=== PATIENT | female | born 1945 | race Caucasian/White ===

== ENCOUNTER 2024-06-19 14:01 | Outpatient (CLI) | payer MEDICARE, SELFPAY ==
--- NOTE | ~2024-06-19 | MR_ITS ---
EXAMINATION: MR shoulder RT wo con DATE: 06/19/2024 14:52 INDICATION: Primary osteoarthritis, right shoulder. Right shoulder pain. TECHNIQUE: Magnetic resonance imaging (MRI) of the right shoulder was performed without intravenous c ontrast. Sequences included axial PD-weighted FS FSE, coronal oblique PD-weighted FS FSE and T2-weigh steve FS FSE, and sagittal oblique T2-weighted FS FSE and T1-weighted FSE. COMPARISON: Right shoulder radiographs 02/05/2024 FINDINGS: Coracoacromial arch: The acromion undersurface is curved in morphology (type II). There is severe acromioclavicular joint osteoarthritis including inferiorly directed osteophytes. There is moderate subacromial/subdeltoid bu rsitis. Rotator cuff: There is a full-thickness tear of supraspinatus tendon measuring 13 mm anterior to posterior by 14 mm proximal to distal. There is an interstitial tear of infraspinatus tendon. Teres minor tendon is nor mal. There is a partial tear of subscapularis tendon. There is volume loss and moderate fatty atrophy of subscapularis muscle belly. There is mild fatty atrophy of supraspinatus and infraspinatus muscle bellies. Biceps tendon and glenoid labrum: Biceps tendon is in bicipital groove. There is severe intra-articular biceps tendinopathy. There is d egenerative tearing of the glenoid labrum. Fluid: There is a small glenohumeral joint effusion. Bones/cartilage: There is shallow partial-thickness cartilage loss of glenoid and humeral head. IMPRESSION: 1. Full-thickness rotator cuff tear. 2. Mild glenohumeral joint chondrosis. 3. Severe biceps tendinopathy. 4. Small glenohumeral joint effusion and moderate subacromial/subdeltoid bursitis. 5. Severe acromioclavicular joint osteoarthritis. Reviewed, dictated and finalized at location [facility]. [facility] IMPRESSION: 1. Full-thickness rotator cuff tear. 2. Mild glenohumeral joint chondrosis. 3. Severe biceps tendinopathy. 4. Small glenohumeral joint effusion and moderate subacromial/subdeltoid bursit is. 5. Severe acromioclavicular joint osteoarthritis.
== END 2024-06-19 14:02 | disposition home or self-care (01) ==
LOC: MICIMG 14:04
PROVIDERS: PCP Family Medicine; Visit Provider Physician Assistant Surgical
DX: M19.011 Primary osteoarthritis, right shoulder (principal); M67.911 Unspecified disorder of synovium and tendon, right shoulder; M25.411 Effusion, right shoulder
CPT/HCPCS: 73221

== ENCOUNTER 2024-07-21 14:12 | Outpatient (CLI) | payer MEDICARE, SELFPAY ==
--- NOTE | 2024-07-21 15:13 | ECG_ITS ---
Test Date: 2024-07-21 15:22:21 Measurements Intervals [place] Rate: 67 P: 13 [place]: 172 QRS: -11 QRSD: 83 T: 31 QT: 410 QTc: 433 Interpretive Statements SINUS RHYTHM No previous ECG available for comparison Electronically Signed On 07-22-2024 15:39:35 CDT by Burt Santiago M.D.
[2024-07-21 15:39] LABS: Hematocrit 40.1 % (37.0-47.0); Hemoglobin 13.4 g/dL (12.0-15.0)
[2024-07-21 16:17] LABS: Hemoglobin A1C 7.2 % (<5.7)
--- OUTSIDE RECORDS SUMMARY | 2024-07-21 16:28 | XMS_ITS | Encounter Summary ---
Author Organization [facility] Healthcare Address [address] [place] [address] Care Team Providers Care Print Producer Name Role Phone Chris Garcia MD Primary Care Provider [phone] Sydni Arroyo NP Primary Care Provider [phone] Chris Garcia MD Primary Care Provider [phone] Concetta Roman MA Unavailable [phone] Encounter Details Date Type Department Care Team (Late st Contact Info) Description 10/12/2020 Telephone [facility] [address] [place] [id number] Li Wilder, RT Social History Tobacco Use Types Packs/Day Years Used Date Smoking Tobacco: Former Smokeless Tobacco: Never Comments:Smoking History Pac ks/day: 1 Cigarettes Alcohol Use Standard Drinks/Week Comments Yes 0 (1 standard drink = 0.6 oz pur e alcohol) PHQ-2 Answer Date Recorded PHQ-2 Total Score 0 10/08/2020 Comments Unknown Sex and Gender Information Value Date Recorded Sex Assigned at Not on file Legal Sex Female 6:52 PM [employer]ER [employer] Gender Identity Not on file Sexual Orientation Not on file documented as of this encounter Plan of Treatment Not on file documented as of this encounter Visit Diagnoses Not on filedocumented in this encounter Additional Health Concerns Infection Onset Date Last Indicated Resolved Time COVID: Suspected 05/01/2022 05/01/2022 05/01/2022 10:33 AM [employer] documented as of this encounter Care Teams Print Producer Relationship Specialty Start Date End Date Chris Garcia MD [address] [place] [address] PCP - General 06/25/19 10/14/20 Sydni Arroyo NP [address] [place] [address] PCP - General Family Medicine 10/15/20 11/14/20 Chris Garcia MD [address] [place] [address] PCP - General Family Medicine 11/15/20 Concetta Roman MA [address] [place] [address] [place] [address] [employer] 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
--- OUTSIDE RECORDS SUMMARY | 2024-07-21 16:28 | XMS_ITS | Clinical Summary ---
Author Organization [facility] [employer] Address [address] [place] [address] Care Team Providers Care Heater Operator Name Role Phone Unavailable Primary Care Provider Unavailabl e Source Comments [facility],non-owned Affiliates and Associated Physician Practices is amultiple site organization consisting of ambulatory clinics and hospital sitesin [place], [place], [place] and [place]. This disclosure is being madepursuant to the Care Everywhere program and may not contain all information available regarding this patient. Last updated 18.[facility] [employer] Allergies Active Allergy Reactions Criticality Noted Date Comments Codeine 06/16/2009 Medications * Be aware that medications may not be up to date on this document. Alwaysverify current medications with the patient. Medication Sig Dispensed Refills Start Date End Date Status lisinopril (PRINIVIL; ZESTRIL) 10 MG tablet Take 10 mg by mouth daily. Active VITAMIN D PO Take by mouth. Active aspirin 81 MG tablet Take 81 mg by mouth daily. Been taking occasionally Active Active Problems Problem Noted Date Diagnosed Date Chest pain 06/16/2009 Family History Medical History Relation Name Comments Heart Disease Paternal Grandfather Relation Name Status Comments Paternal Grandfather Social History Tobacco Use Types Packs/Day Years Used Date Smoking Tobacco: Every Day Cigarettes Comments:socially when out, 1 pack will last a month or so Alcohol Use Standard Drinks/Week Comments Yes 0 (1 standard drink = 0.6 oz pur e alcohol) socially Sex and Gender Information Value Date Recorded Sex Assigned at Not on file Gender Identity Not on file Sexual Orientation Not on file Last Filed Vital Signs Vital Sign Reading Time Taken Comments Blood Pressure 106/60 06/17/2009 5: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 Pulse 77 06/17/2009 5: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 Temperature 36.8 C (98.3 F) 06/17/2009 4:18 PM 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 Respiratory Rate 16 06/17/2009 5: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 Oxygen Saturation 91% 06/17/2009 4:18 PM 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 Inhaled Oxygen Concentration - - Weight 85.2 kg (187 lb 13.3 oz) 010 12:23 AM 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 Height 157.5 cm (5' 2 ) 06/17/2009 12:2 3 AM 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 Body Mass Index 34.35 06/17/2009 12:23 AM 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 Plan of Treatment Health Maintenance Due Date Last Done Comments BONE DENSITY TESTING 1945 HEPATITIS C SCREENING 07/31/1965 DTAP/TDAP/TD VACCINES (1 - Tdap) 08/04/1966 PNEUMOCOCCAL VACCINE 50+ (1 of 1 - PCV) 08/04/1997 ZOSTER VACCINE (1 of 2) 08/04/1997 Respiratory Syncytial Virus (RSV) Vaccine Pt: or over 60 yrs (1 - 1-dose 75+ series) 08/04/2022 COVID-19 VACCINE ( - 2023-2 5 season) 2023 INFLUENZA VACCINE (#1) 2023 DEPRESSION SCREENING 04/30/2024 HEPATITIS B VACCINE Aged Out No longe r eligible based on patient's age to complete this topic HIB VACCINE Aged Out No longer eligi ble based on patient's age to complete this topic HPV VACCINE Aged Out No longer eligi ble based on patient's age to complete this topic MENINGOCOCCAL (Group B) VACC INE SHARED DECISION-MAKING Aged Out No longer eligibl e based on patient's age to complete this topic MENINGOCOCCAL GROUPS A/C/Y/W VACCINE Aged Out No longer eligible b ased on patient's age to complete this topic Advance Directives * Full Code (Latest Code Status on File) Date Activated Date Inactivated Comments 06/17/2009 12:02 PM 06/18/2009 6:53 AM
--- OUTSIDE RECORDS SUMMARY | 2024-07-21 16:29 | XMS_ITS | Referral Summary ---
Author Organization [facility] A Address [address] [place] [address] Care Team Providers Care Director [facility] Name Role Phone Chris Garcia MD Primary Care Provider [phone] Encounters Date Type Department Care Team Description 06/19/2024 Orders Only [facility] [facility] [address] [place] [id number] Chris Garcia MD 06/12/2024 Telephone [facility] Endocrine Care at [address] [address] Arthur Santiago DO 06/02/2024 2:30 PM REAL TIME ANALYST Office Visit [facility] Diabetes Endocrine Care at [address] [address] Arthur Santiago DO Type 2 diabetes mellitus with hyperglycemia, without long-term current use of insulin (HCC) (Primary Dx); Hypertension associated with diabetes (HCC) from Last 3 Months Allergies Active Allergy Reactions Criticality Noted Date Comments Ciprofloxacin Swelling,Other (See comments),Blisters Reaction: SWELLING, Reaction: hand, feet swelling, blister, , Reaction: hand, feet swelling, blister, Codeine Nausea only,Vomiting Reaction: NAUSEA, VOMITING, , Lanolin Itching Reaction: ITCHING Lisinopril Cough Low 07/08/2020 Mineral Oil Itching Low Reaction: ITCHING Penicillin Hives Reaction: hives, Penicillins Medications aspirin 81 mg enteric coated tablet Take 1 tablet (81 mg total) by mouth daily 30 tablet 1 Active nitroglycerin (NITROSTAT) 0.[address] 1 tablet (0.4 mg total) under the tongue every 5 (five) minutes as needed for chest pain May repeat dose q 5 min, up to 3 doses total 90 tablet 2 Active blood glucose diagnostic (glucose blood) strip Use as directed to test blood sugars 100 each 4 01/23/20 Active lancets 33 gauge misc Use as directed to test blood sugars 100 each 4 Active amLODIPine (NORVASC) 10 mg tablet Take 1 tablet (10 mg total) by mouth daily 30 tablet 4 02/05/20 Active Additional Information Patient not taking.Reported on 06/02/2024 losartan (COZAAR) 100 mg tablet Take 1 tablet (100 mg total) by mouth daily 30 tablet 4 02/05/20 Active blood-glucose meter miscIndications :Type 2 diabetes mellitus with hyperglycemia, without long-term current use of insulin (HCC) Use daily or as directed for monitoring of diabetes. HomeCon Contour Glucose Meter - DX: E11.65 1 each 4 Active lancets 33 gauge miscIndications :Type 2 diabetes mellitus with hyperglycemia, without long-term current use of insulin (HCC) Use to test blood sugar once daily. 100 each 4 Active Jardiance 25 mg tablet Take 1 tablet (25 mg total) by mouth daily 30 tablet 4 02/21/20 Active Additional Information Patient not taking.Reported on 06/02/2024 HYDROcodone-tess taminophen (NORCO) 5-325 mg per tabletIndicatio ns:Pain Take 1 tablet by mouth every 6 (six) hours as needed for pain 28 tablet 4 Active pravastatin (PRAVACHOL) 40 mg tabletIndicatio ns:Dyslipidemia associated with type 2 diabetes mellitus (HCC) TAKE 1 TABLET BY MOUTH EVERY DAY 100 tablet 1 4 Active glimepiride (AMARYL) 2 mg tabletIndicatio ns:type 2 diabetes mellitus Take 2 tablets (4 mg total) by mouth daily before breakfast 180 tablet 3 5 Active Januvia 50 mg tabletIndicatio ns:type 2 diabetes mellitus Take 1 tablet (50 mg total) by mouth daily 90 tablet 3 5 06/02/19 26 Active Active Problems Problem Noted Date Diagnosed Date Type 2 diabetes mellitus wit h stage 3a chronic kidney disease, without long-term current use of insulin 03/13/2024 Assessment & Plan (03/13/2024 3:35 PM REAL TIME ANALYST): Kidney function is decreasing will continue to monitor. Discussed avoids salt, NSAIDs, and proper hydration. Sydnie is not interested in seeing Nephrology at this time. We will continue to monitor closely. Chronic right shoulder pain 03/13/2024 Assessment & Plan (03/13/2024 4:34 PM REAL TIME ANALYST): Pain not well controlled on Tramadol. Patient saw ortho and was given an injection which did not help. [place] sent in for pain relief to see if that will work better than Tramadol BMI 32.0-32.9,adult 03/13/2024 Assessment & Plan (03/13/2024 3:58 PM REAL TIME ANALYST): Weight appropriate for patient. Hyponatremia 02/05/2024 Assessment & Plan (02/05/2024 1:35 PM CDT): HCTZ discontinued. Dizziness 02/01/2024 Assessment & Plan (02/13/2024 6:41 AM CDT): Dizziness has resolved; no falls or safety concerns. Headache has resolved. Mild recurrent major depression 03/08/2023 Assessment & Plan (03/08/2023 3:24 PM REAL TIME ANALYST): PHQ = 2 Patient reports moods are stable overall, some bad days but has more good days than bad days. Sleeping well. Notable improvement in moods with duloxetine. Angina pectoris, unspecified 02/28/2022 Assessment & Plan (03/08/2023 3:28 PM REAL TIME ANALYST): Denies any recent chest pain or need for nitro Blood pressure well controlled. Assessment & Plan (02/28/2022 4:10 PM CDT): Nitro refilled. Physical exam, annual 02/28/2022 Assessment & Plan (03/08/2023 3:11 PM REAL TIME ANALYST): Preventative exam. Reviewed recommended preventative screenings and vaccinations. Discussed health maintenance topics. Encourage regular physical activity. Encourage annual flu vaccine, patient declines at this time. Colonoscopy 01/20/2021 Diverticulosis in the sigmoid colon, the examination was otherwise normal, repeat in 10 years. Assessment & Plan (02/28/2022 4:10 PM CDT): 1. Eat a healthy diet: focus on lean meats and proteins, more fruits, vegetables and whole grains and low in sugars and fats. Limit red meat and avoid processed meat. 2. Maintain a healthy weight; avoid being overweight. Aim for a normal body mass index (BMI) of 18.5-24.9. Help learning to eat healthier, we can set up appointment with bankruptcy law specialist/meat service team member. 3. Have an active lifestyle, strive for 30 minutes of moderate exercise 5 times a week and strength or resistance training at least twice a week. 4. Use broad-spectrum (UVA+UVB) sunscreen with SPF 30 or greater, is water resistant, limit time spent in the sun (10 am-4pm), wear hat, wear UV protective clothing, wear sunglasses. Never use a tanning bed. Skin that was irradiated may be more sensitive over your lifetime. 5. Does not smoke or chew tobacco. 6. Limit alcohol intake, 1 drink per day for a womann. Polyarthropathy 11/22/2021 Assessment & Plan (03/08/2023 3:26 PM REAL TIME ANALYST): Stable; patient is taking medications as prescribed. Denies any medication side effects. Assessment & Plan (12/14/2022 6:24 PM CDT): Chronic and unchanged, patient is taking her medications as prescribed. She denies any medication side effects or opioid induced constipation. Patient is not able to take NSAIDs due to CKD. Still has not scheduled an appointment with pain management however expresses desire to do so. Assessment & Plan (06/16/2022 2:54 PM REAL TIME ANALYST): Patient with chronic pain, taking medications as prescribed. Previously referred to pain management. Agreeable to start duloxetine for pain, reviewed medication side effects and scheduling. Must discontinue naproxen. Will schedule follow up in 3 months and repeat labs prior to office visit. Assessment & Plan (02/28/2022 4:09 PM CDT): Chronic pain issues. Will check autoimmune labs. She is going to schedule w/Dr Garcia for medical marijuana card. Used friends edibles & was able to help her sleep (decreased pain enough). Assessment & Plan (11/22/2021 2:28 PM CDT): Tramadol 50mg daily prn #90 last filled 07/14/21. Will refill today. COVID-19 vaccine dose declined 06/30/2021 Mammogram declined 02/04/2021 Anger 02/04/2021 Assessment & Plan (11/22/2021 6:45 PM CDT): Never started fluoxetine as papers with medication stated interaction between fluoxetine & tramadol. Feels that it is no longer needed. Feels that anger has calmed down. Assessment & Plan (04/01/2021 2:02 PM REAL TIME ANALYST): Never started fluoxetine as papers with medication stated interaction between fluoxetine & tramadol. Feels that it is no longer needed. Feels that anger has calmed down. Assessment & Plan (02/04/2021 6:11 PM CDT): Discussed different types of medications & their Ses/MOA. Fluoxetine 10 daily sent. To make f/u appt in 6-8 weeks. Aware that it may take up to 4 weeks to notice effects & 6-8 weeks to feel full effects. Reviewed main Ses of GI upset & BLOUNT Reviewed red flags; aware to call office/911 if thoughts of harming self/others. To stop medications immediately in that instance. Positive colorectal cancer screening using Colog uard test 01/04/2021 Overview (01/04/2021): Added automatically from request for surgery [id number] Dyslipidemia associated with type 2 diabetes malcolm allisonus 07/08/2020 Assessment & Plan (02/13/2024 6:42 AM CDT): Continue pravastatin 40 mg daily. Assessment & Plan (12/14/2022 4:08 PM CDT): Forgetting to take pravastatin 1-2 times per week. Will plan to increase to 80 mg daily, patient would like to take two tablets when she forgets medication. Will repeat labs in 3 months. Assessment & Plan (09/14/2022 2:51 PM CDT): Several missed doses, reviewed labs with patient and ASCVD risk score of 40%. Encouraged her to take medication daily, discussed use of pill box. Assessment & Plan (06/16/2022 2:50 PM REAL TIME ANALYST): Continues on pravastatin 40 mg daily as prescribed. Reviewed labs today with patient. Assessment & Plan (02/28/2022 4:08 PM CDT): 07/08/20 ZG=954 HDL=52 TG=80 LDL=55 TC/HDL=2.0 06/30/21 KN=576 HDL=40 NV=893 NDD=105 TC/HDL=6 HCKQGU=477 11/22/21 HE=100 HDL=42 GO=131 YRX=193 TC/HDL=6 QKPMSS=621 Pravastatin 40mg daily. Some metallic taste per mrs Persaud but no myalgias. Still does not want to take statins. Reviewed diet necessary to help decrease total cholesterol and LDL. Still eats red meat at least 3 times a week and does not want to decrease that. Reviewed diet/exercise recommendations. Lipid panel ordered; will contact w/results when received. Reviewed diet/exercise recommendations. Assessment & Plan (11/22/2021 6:42 PM CDT): 07/08/20 XY=132 HDL=52 TG=80 LDL=55 TC/HDL=2.0 06/30/21 SW=380 HDL=40 TM=809 HBF=384 TC/HDL=6 HAKXBR=248 Still does not want to take statins. Reviewed that total cholesterol and LDL levels elevated; require statins especially with diabetes diagnosis. Reviewed diet necessary to help decrease total cholesterol and LDL. States that she eats red meat at least 3 times a week and does not want to decrease that. Reviewed diet/exercise recommendations. Assessment & Plan (08/03/2021 7:13 PM CDT): ND=755 HDL=40 SH=088 DES=559 TC/HDL=6 OLEGQM=855 Does not want to take statins. Reviewed that total cholesterol and LDL levels elevated; require statins especially with diabetes diagnosis. Reviewed diet necessary to help decrease total cholesterol and LDL. States that she eats red meat at least 3 times a week and does not want to decrease that. Lipid panel ordered; will call w/results when received. Reviewed diet/exercise recommendations. Assessment & Plan (07/01/2021 10:50 PM REAL TIME ANALYST): Has been off of atorvastatin since 05/31/21. Denies myalgias. We will check labs and make adjustments to medications as needed. Patient should focus on limiting bad fats in the diet and using exercise as a way to improve the lipid status. Secondary prevention. Reviewed medications. Lipid panel ordered; will call w/results when rec'd. Denies any statin Ses. Reviewed diet/exercise recommendations. Reviewed red flags. Assessment & Plan (02/04/2021 6:07 PM CDT): 06/25/19 YW=483 HDL=49 OT=443 UBV=314 TC/HDL=5.0 07/08/20 SA=240 HDL=52 TG=80 LDL=55 TC/HDL=2.0 Atorvastatin 20mg daily. Patient should focus on limiting bad fats in the diet and using exercise as a way to improve the lipid status. Secondary prevention. Reviewed medications. Denies any statin Ses. Reviewed diet/exercise recommendations. Reviewed red flags. Assessment & Plan (10/08/2020 4:03 PM CDT): 10/01/15 KD=104 HDL=43 TG= 246 LDL=81 06/25/19 TC246 HDL=49 NG=213 MCO=671 TC/HDL=5.0 07/08/20 TC123 HDL=52 TG=80 LDL= 55 TC/HDL=2 Atorvastatin 20mg daily. Denies any SE/myalgias Reviewed previous labs. Will check labs today and make adjustments to medications as needed. Secondary prevention Discussed focusing on limiting bad fats in the diet and using exercise as a way to improve cholesterol. Reviewed exercise recommendations and red flags warranting further evaluation. Assessment & Plan (07/08/2020 3:29 PM REAL TIME ANALYST): 10/01/15 XL=655 HDL=43 EX=521 LDL=81 06/25/19 ZM=054 HDL=49 PF=983 CRS=195 TC/HDL=5.0 Atorvastatin 20mg daily. Denies myalgias. We will check labs and make adjustments to medications as needed. Patient should focus on limiting bad fats in the diet and using exercise as a way to improve the lipid status. Secondary prevention. Reviewed medications. Lipid panel ordered; will call w/results when rec'd. Denies any statin Ses. Reviewed diet/exercise recommendations. Reviewed red flags. Hypertension associated with diabetes 07/08/2020 Assessment & Plan (03/13/2024 3:36 PM REAL TIME ANALYST): Advised that Amlodipine could be causing lower leg swelling. Patient states she is wanting to try to stop the medication and see if that will help her swelling without impacting her HTN. Assessment & Plan (02/05/2024 1:36 PM CDT): BP stable; now taking losartan 100 mg daily and amlodipine 10 mg daily. Assessment & Plan (03/08/2023 3:23 PM REAL TIME ANALYST): Blood pressure is well controlled, continue losartan-hydrochlorothiazide 125 mg tablet daily Assessment & Plan (12/14/2022 6:22 PM CDT): Blood pressure is well controlled, no changes in current medication. Assessment & Plan (06/16/2022 2:52 PM REAL TIME ANALYST): BP elevated today, patient reports she has not taken her BP yet and typically takes medications later. Declines medication changes. Discussed need to monitor diet, follow low sodium diet <2400 mg day. Reviewed s/s warranting immediate evaluation. Assessment & Plan (02/28/2022 4:08 PM CDT): Losartan-hydrochlorothiazide 100-25 mg daily. Blood pressure is greatly improved. Mrs. Persaud aware to continue to monitor blood pressure. The blood pressure is under good control. Ideally it should be under 130/80. Continue medications without adjustment. Continue efforts to eat well (4-5 fruits and veggies) daily and exercise for about 30 min nearly every day. Watch salt intake, keeping to less than 2000mg per day. Limit alcohol. Include strategies to cope with stress. Labs ordered today; will contact w/results once received. Assessment & Plan (11/22/2021 6:43 PM CDT): Losartan-hydrochlorothiazide 100-25 mg daily, metoprolol XL 25 mg daily. Blood pressure is greatly improved. Mrs. Persaud aware to continue to monitor blood pressure. The blood pressure is under good control. Ideally it should be under 130/80. Continue medications without adjustment. Continue efforts to eat well (4-5 fruits and veggies) daily and exercise for about 30 min nearly every day. Watch salt intake, keeping to less than 2000mg per day. Limit alcohol. Include strategies to cope with stress. Labs ordered today; will contact w/results once received. Not consistent in time that she takes the medication. Assessment & Plan (08/03/2021 7:14 PM CDT): Losartan-hydrochlorothiazide 100-25 mg daily, metoprolol XL 25 mg daily. Blood pressure is greatly improved. Mrs. Persaud aware to continue to monitor blood pressure. The blood pressure is under good control. Ideally it should be under 130/80. Continue medications without adjustment. Continue efforts to eat well (4-5 fruits and veggies) daily and exercise for about 30 min nearly every day. Watch salt intake, keeping to less than 2000mg per day. Limit alcohol. Include strategies to cope with stress. Labs ordered today; will contact w/results once received. Assessment & Plan (07/16/2021 11:26 AM CDT): Has picked up losartan/hctz but has not started. Has been taking metoprolol XL 25mg daily. Discussed possibility of switching meds d/t kidney function decreased. To f/u in 2 weeks to recheck BP; appt set for 08/02/21. Assessment & Plan (07/01/2021 10:55 PM REAL TIME ANALYST): Increase losartan/hctz to 100/25mg. Continues on metoprolol. Reviewed need to check/log Bps. Reviewed BP goals. To rtc in 2 wks for BP recheck. To bring in BP log. The blood pressure is under good control. Ideally it should be under 130/80. Continue medications without adjustment. Continue efforts to eat well (4-5 fruits and veggies) daily and exercise for about 30 min nearly every day. Watch salt intake, keeping to less than 2000mg per day. Limit alcohol. Include strategies to cope with stress. Labs ordered today; will contact w/results once received. Assessment & Plan (02/04/2021 6:08 PM CDT): The blood pressure is under good control. Ideally it should be under 130/80. Continue medications without adjustment. Continue efforts to eat well (4-5 fruits and veggies) daily and exercise for about 30 min nearly every day. Watch salt intake, keeping to less than 2000mg per day. Limit alcohol. Include strategies to cope with stress. Assessment & Plan (10/08/2020 4:04 PM CDT): Doing well on current regimen of losartan -hydroCHLOROthiazide 50-12.5 mg. Checking BP at home. Will call if SBP >140, DBP>90. Continue effort to improve diet-increase fruits/vegetables. Watch sodium intake <2000mg daily Labs ordered; will notify of results. Assessment & Plan (07/08/2020 2:27 PM REAL TIME ANALYST): Changed from lisinopril/hczt to losartan/hctz d/t cough. The blood pressure is under good control. Ideally it should be under 130/80. Continue medications without adjustment. Continue efforts to eat well (4-5 fruits and veggies) daily and exercise for about 30 min nearly every day. Watch salt intake, keeping to less than 2000mg per day. Limit alcohol. Include strategies to cope with stress. Labs ordered today; will contact w/results once received. Osteopenia of neck of femur 07/08/2020 Assessment & Plan (12/14/2022 6:22 PM CDT): Discussed recommendation to take calcium 1200 mg per day and vitamin-D 800 IU daily. Repeat bone density test ordered today. Encouraged weight-bearing exercise Assessment & Plan (10/08/2020 4:11 PM CDT): Patient agreeable to dexa scan. Counseled on adequate intake of calcium (1200 mg/day), vitamin D (600-800 IU daily) and exercise. Patient aware to call to schedule and that she will be notified as soon as results are received. Cervicalgia 07/08/2020 Assessment & Plan (07/01/2021 10:58 PM REAL TIME ANALYST): Sparingly uses tramadol. Refilled today. Takes tramadol for more severe pain. Encouraged otc pain relievers. Assessment & Plan (02/04/2021 6:12 PM CDT): Encouraged otc tylenol/ibuprofen prn back pain. Discussed ice, gentle ROM & other non pharm methods of pain relief. Tramadol 50mg sent. Has not refilled in many years. Will use sparingly. Reviewed red flags. Assessment & Plan (10/08/2020 3:49 PM CDT): Has few tramadol remaining that she uses 1x/month. Takes 2 advil daily C-spine imaging showed ddd, arthritis and slipped disc x3 Uses muscle cream Assessment & Plan (07/08/2020 3:19 PM REAL TIME ANALYST): Has tramadol at home that she uses only at bedtime when she can't sleep d/t pain (Dr Greene filled 2017). Takes 1 advil daily. C spine xr ordered. Has been using warm pack, muscle rubs. No UE radiculopathy Refused pneumococcal vaccination 06/25/2019 Assessment & Plan (02/28/2022 4:05 PM CDT): Discussed and the patient refuses immunization today. Educated regarding the need to vaccinate for personal protection. Assessment & Plan (07/01/2021 10:48 PM REAL TIME ANALYST): Discussed and the patient refuses immunization today. Educated regarding the need to vaccinate for personal protection. Assessment & Plan (04/05/2021 7:12 PM REAL TIME ANALYST): Discussed and the patient refuses immunization today. Educated regarding the need to vaccinate for personal protection Assessment & Plan (02/04/2021 6:10 PM CDT): Discussed and the patient refuses immunization today. Educated regarding the need to vaccinate for personal protection. Assessment & Plan (07/08/2020 2:27 PM REAL TIME ANALYST): Discussed and the patient refuses immunization today. Educated regarding the need to vaccinate for personal protection. Assessment & Plan (06/25/2019 9:21 AM REAL TIME ANALYST): She refuses. Refused influenza vaccine 06/25/2019 Assessment & Plan (02/28/2022 4:05 PM CDT): Discussed and the patient refuses immunization today. Educated regarding the need to vaccinate for personal protection and to limit the viruses in the community to protect those most vulnerable. Assessment & Plan (07/01/2021 10:48 PM REAL TIME ANALYST): Discussed and the patient refuses immunization today. Educated regarding the need to vaccinate for personal protection and to limit the viruses in the community to protect those most vulnerable. Assessment & Plan (04/05/2021 7:12 PM REAL TIME ANALYST): Discussed and the patient refuses immunization today. Educated regarding the need to vaccinate for personal protection and to limit the viruses in the community to protect those most vulnerable. Assessment & Plan (02/04/2021 6:10 PM CDT): Discussed and the patient refuses immunization today. Educated regarding the need to vaccinate for personal protection and to limit the viruses in the community to protect those most vulnerable. Assessment & Plan (07/08/2020 2:27 PM REAL TIME ANALYST): Discussed and the patient refuses immunization today. Educated regarding the need to vaccinate for personal protection and to limit the viruses in the community to protect those most vulnerable. Assessment & Plan (06/25/2019 9:21 AM REAL TIME ANALYST): She refuses. Idiopathic chronic gout of multiple sites chandrika muniz 11/23/2016 Type 2 diabetes mellitus wit h hyperglycemia, without long-term current use of insulin 02/03/2015 Overview (08/04/2016): Type II DM Assessment & Plan (02/13/2024 6:38 AM CDT): Lab Results Component Value Date HGBA1C 8.4 (H) 01/23/2024 HGBA1C 7.1 12/14/2022 HGBA1C 7.5 09/14/2022 Continues glipizide 5 mg daily. Patient with difficulty obtaining glucometer, per patient glucometer not covered through insurance. Will attempt to fill glucometer through [facility]. Encouraged closely monitoring diet, limiting carb intake and portion sizes. Denies any signs or symptoms of hypoglycemia. Referral placed to endocrinology. Assessment & Plan (12/14/2022 6:26 PM CDT): Improving; continue glipizide 5 mg daily. Discussed importance of maintaining good control of diabetes diet. A1c has improved from last check. Lab Results Component Value Date HGBA1C 7.1 12/14/2022 HGBA1C 7.5 09/14/2022 HGBA1C 7.6 (H) 06/14/2022 Patient continues pravastatin 40 mg daily, LDL not at goal of less than 70. Encouraged patient to schedule diabetic eye exam. Assessment & Plan (09/14/2022 2:50 PM CDT): Lab Results Component Value Date HGBA1C 7.5 09/14/2022 HGBA1C 7.6 (H) 06/14/2022 HGBA1C 7.5 (H) 02/28/2022 Stable; did not start rybelsus as prescribed, did not want to pay for medication out of pocket. However, patient states she can afford cost of medication and she is agreeable to start at this time. Assessment & Plan (06/16/2022 2:56 PM REAL TIME ANALYST): Lab Results Component Value Date HGBA1C 7.6 (H) 06/14/2022 HGBA1C 7.5 (H) 02/28/2022 HGBA1C 7.8 (H) 11/22/2021 Taking glipizide daily. BG not at goal, declines metformin and refuses insulin/injectable medications. Agreeable to start different oral medication. Start Rybelsus 3 mg daily, reviewed medication side effects and scheduling. Assessment & Plan (02/28/2022 4:04 PM CDT): Lab Results Component Value Date HGBA1C 7.8 (H) 11/22/2021 HGBA1C 8.4 (H) 06/30/2021 HGBA1C 7.5 % 02/04/2021 Glipizide 5mg daily. Denies any SE. Reviewed dietary/exercise recommendations. Instructed to perform daily foot check. Reviewed medication side effects & scheduling. To check/record FSBS & bring to appointments. Labs ordered; will call with results when received. To make follow up appointment in 3 months. Reviewed red flags; what would warrant further evaluation. Assessment & Plan (11/22/2021 6:40 PM CDT): Lab Results Component Value Date HGBA1C 7.8 (H) 11/22/2021 HGBA1C 8.4 (H) 06/30/2021 HGBA1C 7.5 % 02/04/2021 Glipizide 5mg daily. Denies any SE. Reviewed dietary/exercise recommendations. Instructed to perform daily foot check. Reviewed medication side effects & scheduling. To check/record FSBS & bring to appointments. Labs ordered; will call with results when received. To make follow up appointment in 3 months. Reviewed red flags; what would warrant further evaluation. Assessment & Plan (08/03/2021 7:11 PM CDT): Has started glipizide 5 mg daily. No side effects noted. Will repeat A1c prior to her next appointment in 3 months. Again reviewed diet: Foods she should avoid & foods she should eat. Last A1cs: Lab Results Component Value Date HGBA1C 8.4 (H) 06/30/2021 HGBA1C 7.5 % 02/04/2021 HGBA1C 7.8 (H) 10/08/2020 Reviewed dietary/exercise recommendations. Instructed to perform daily foot check. Reviewed medication side effects & scheduling. Labs ordered; will call with results when received. To make follow up appointment in 3 months. Reviewed red flags; what would warrant further evaluation. Assessment & Plan (07/16/2021 11:19 AM CDT): Lab Results Component Value Date HGBA1C 8.4 (H) 06/30/2021 HGBA1C 7.5 % 02/04/2021 HGBA1C 7.8 (H) 10/08/2020 To start glipizide 5mg daily. Will need to repeat A1c in 3 mos. Stressed need to watch intake. Assessment & Plan (07/01/2021 10:47 PM REAL TIME ANALYST): A1c, micoralbumin & cmp ordered. Last A1c's: 7.8%, 7.5%. Has not been taking metformin d/t GI distress. Will switch to glipizide 5mg daily. Will rtc & have labs drawn in 3 mos. Discussed possible increase in meds. Reviewed dietary/exercise recommendations. Instructed to perform daily foot check. Reviewed medication side effects & scheduling. Labs ordered; will call with results when received. To make follow up appointment in 3 months. Reviewed red flags; what would warrant further evaluation. Assessment & Plan (02/04/2021 6:09 PM CDT): Lab Results Component Value Date HGBA1C 7.5 % 02/04/2021 HGBA1C 7.8 (H) 10/08/2020 HGBA1C 6.8 (H) 07/08/2020 Slow improvement in A1c. Reviewed diet/activity recommendations. Refilled metformin. Reviewed dietary/exercise recommendations. Instructed to perform daily foot check. Reviewed medication side effects & scheduling. Reviewed red flags; what would warrant further evaluation. Assessment & Plan (10/08/2020 4:03 PM CDT): Lab Results Component Value Date HGBA1C 6.8 (H) 07/08/2020 HGBA1C 7.6 03/11/2020 HGBA1C 7.5 12/08/2019 Working on increasing activity and eating healthier diet Metformin XR 500mg daily- A1C trending down. Labs pending-will call with results when received. F/U in 3 months Reviewed red flags warranting further evaluation. Assessment & Plan (07/08/2020 3:31 PM REAL TIME ANALYST): Lab Results Component Value Date HGBA1C 7.6 03/11/2020 HGBA1C 7.5 12/08/2019 HGBA1C 10.3 (H) 06/25/2019 Metformin XR 500mg daily. Has become more active. A1c dropped from 10.3-7.6% last year. No longer seeing Dr Mckeon. Reviewed dietary/exercise recommendations. Instructed to perform daily foot check. Reviewed medication side effects & scheduling. To check/record FSBS & bring to appointments. Labs ordered; will call with results when received. To make follow up appointment in 3 months. Reviewed red flags; what would warrant further evaluation. Assessment & Plan (03/11/2020 2:05 PM REAL TIME ANALYST): Diagnosed few years ago Started treatment in 2019 Control : not controlled as patient not compliant with treatment A1c 7.6% on 03/11/20 A1c 7.5% on 12/08/19 A1c was 10.3% on 06/25/19 Kidney: nephropathy on Lisinopril GFR 84 on 06/25/19 Neuropathy : none Plan: Discussed with patient ADA diet and need to work on weight loss. Change metformin to metformin XR 1500 mg Qpm with dinner to improve compliance Ophthalmology exam on regular basis. Assessment & Plan (12/08/2019 4:17 PM CDT): Diagnosed few years ago Started treatment in 2019 Control : improved control with diet and Metformin A1c 7.5% on 12/08/19 A1c was 10.3% on 06/25/19 Kidney: nephropathy on Lisinopril GFR 84 on 06/25/19 Neuropathy : none Eye : needs exam Plan: Refer patient to dietitian Discussed with patient ADA diet and need to work on weight loss. Increase metformin to 1000 mg bid with food. Ophthalmology exam on regular basis. Assessment & Plan (10/06/2019 1:54 PM CDT): She has an appointment scheduled with endocrinology next month Assessment & Plan (07/02/2019 1:49 PM REAL TIME ANALYST): She states blood sugars have been stable at home. Will continue current prescribed therapy. She states she has been colon Endocrinology to schedule appointment. She has also scheduling her eye exam appointment. Obstructive sleep apnea syndrome 05/14/2014 Overview (08/04/2016): ROSA M Assessment & Plan (07/02/2019 1:36 PM REAL TIME ANALYST): She states she has been sleeping well this past week. Will continue current prescribed therapy. Assessment & Plan (06/25/2019 9:21 AM REAL TIME ANALYST): She does not wish to have a sleep study at this time. Subclinical hypothyroidism 09/27/2013 Overview (08/04/2016): Subclinical hypothyroidism Assessment & Plan (07/08/2020 3:30 PM REAL TIME ANALYST): TSH reflex T4 ordered; will contact w/results once rec'd. Aware to check mychart once she signs up. Will call/send letter if mychart not set up. Resolved Problems Problem Noted Date Diagnosed Date Resolved Date Recurrent major depression 06/16/2022 0 06/16/2022 Class 1 obesity due to exces s calories with serious comorbidity and body mass index (BMI) of 31.0 to 31.9 in adult 06/30/2021 07/16/2021 Assessment & Plan (07/01/2021 11:01 PM REAL TIME ANALYST): Reviewed need to lose weight, reviewed health benefits. Reviewed recommendations for daily intake & activity 20-30 minutes/day. Discussed healthy diet and importance of regular physical activity. Class 1 obesity due to exces s calories without serious comorbidity with body mass index (BMI) of 32.0 to 32.9 in adult 04/01/202106/2021 Assessment & Plan (04/01/2021 2:03 PM REAL TIME ANALYST): Reviewed need to lose weight, reviewed health benefits. Reviewed recommendations for daily intake & activity 20-30 minutes/day. Discussed healthy diet and importance of regular physical activity. CKD stage 3 due to type 2 diabetes mellitus 02/04/2021 03/13/2024 Assessment & Plan (03/08/2023 3:23 PM REAL TIME ANALYST): Stable continues to avoid NSAIDs. Diabetes well controlled. Encouraged patient to schedule eye exam at her convenience. Assessment & Plan (12/14/2022 6:21 PM CDT): Stable, repeat labs ordered today. Assessment & Plan (09/14/2022 2:48 PM CDT): Again reviewed need to better control diabetes. Stable. Assessment & Plan (06/16/2022 2:49 PM REAL TIME ANALYST): Estimated Creatinine Clearance: 30.7 mL/min (A) (by C-G formula based on SCr of 1.27 mg/dL (H)). Discussed avoidance of NSAIDs and need for better control of HTN and DM. Will continue to monitor. Assessment & Plan (02/28/2022 4:09 PM CDT): Declining GFR. Component Ref Range & Units 4 mo ago 1 yr ago 2 yr ago eGFR mL/min/1.73 m2 43 51 CM 84 CM Labs to be drawn today. Assessment & Plan (11/22/2021 6:44 PM CDT): Declining GFR. Component Ref Range & Units 4 mo ago 1 yr ago 2 yr ago eGFR mL/min/1.73 m2 43 51 CM 84 CM Labs to be drawn today. Assessment & Plan (08/03/2021 6:50 PM CDT): Will repeat labs prior to next appt to monitor GFR. Component Ref Range & Units 1 mo ago 1 yr ago 2 yr ago eGFR mL/min/1.73 m2 43 51 CM 84 CM Assessment & Plan (07/01/2021 11:01 PM REAL TIME ANALYST): Component Ref Range & Units 11 mo ago 2 yr ago eGFR mL/min/1.73 m2 51 84 CM Labs ordered; will check today. Discussed need to keep BP/DM under control to protect kidneys. Assessment & Plan (02/04/2021 2:11 PM CDT): GFR=51 06/2020. Class 1 obesity due to exces s calories with serious comorbidity and body mass index (BMI) of 33.0 to 33.9 in adult 02/04/2021 04/01/2021 Assessment & Plan (02/04/2021 6:09 PM CDT): Reviewed need to lose weight, reviewed health benefits. Reviewed recommendations for daily intake & activity 20-30 minutes/day. Discussed healthy diet and importance of regular physical activity. Weight steadily increasing. Stressed need to improve lifestyle (diet/activity). Moderate episode of recurren t major depressive disorder 02/04/2021 11/22/2021 Assessment & Plan (04/05/2021 7:12 PM REAL TIME ANALYST): Never started fluoxetine. Feels that depression has improved. Feels that she is doing well as her husbands anniversary is approaching (04/08/21). Assessment & Plan (02/04/2021 6:11 PM CDT): Discussed different types of medications & their Ses/MOA. Fluoxetine 10 daily sent. To make f/u appt in 6-8 weeks. Aware that it may take up to 4 weeks to notice effects & 6-8 weeks to feel full effects. Reviewed main Ses of GI upset & BLOUNT Reviewed red flags; aware to call office/911 if thoughts of harming self/others. To stop medications immediately in that instance. Chest tightness 10/08/2020 06/30/2021 Assessment & Plan (10/08/2020 3:48 PM CDT): Hx of angina. Cath in 2014 : mild CAD Given referral to cardiology Instructed to go directly to ER or call 911 if she experiences any new or worsening symptoms. Again, reviewed diet and exercise. Labs pending Grief 10/08/2020 02/28/2022 Assessment & Plan (10/08/2020 4:18 PM CDT): suddenly at home 6mo ago. Has been adjusting to living alone. Denies SI/HI. Has 2 close friends for support and talks to sister in [place]. Not interested in medication at this point. Will continue to monitor. Class 1 obesity due to exces s calories with serious comorbidity and body mass index (BMI) of 31.0 to 31.9 in adult 07/08/2020 03/13/2024 Assessment & Plan (02/13/2024 6:41 AM CDT): Encouraged healthy diet and regular exercise. Assessment & Plan (03/08/2023 3:23 PM REAL TIME ANALYST): Stable, continues with active lifestyle. Assessment & Plan (09/14/2022 2:49 PM CDT): Patient enjoying more activities, dancing and getting our of the house. Assessment & Plan (06/16/2022 2:49 PM REAL TIME ANALYST): Discussed healthy diet and importance of regular physical activity. Assessment & Plan (02/28/2022 4:08 PM CDT): Reviewed need to lose weight, reviewed health benefits. Reviewed recommendations for daily intake & activity 20-30 minutes/day. Discussed healthy diet and importance of regular physical activity. Assessment & Plan (11/22/2021 6:43 PM CDT): Reviewed need to lose weight, reviewed health benefits. Reviewed recommendations for daily intake & activity 20-30 minutes/day. Discussed healthy diet and importance of regular physical activity. Assessment & Plan (08/03/2021 7:14 PM CDT): Reviewed need to lose weight, reviewed health benefits. Reviewed recommendations for daily intake & activity 20-30 minutes/day. Discussed healthy diet and importance of regular physical activity. Assessment & Plan (07/16/2021 11:27 AM CDT): Reviewed need to lose weight, reviewed health benefits. Reviewed recommendations for daily intake & activity 20-30 minutes/day. Discussed healthy diet and importance of regular physical activity. Assessment & Plan (10/08/2020 3:51 PM CDT): Obesity is unchanged. Discussed the patient's BMI. The BMI is above average; BMI management plan is completed. General weight loss/lifestyle modification strategies discussed (elicit support from others; identify saboteurs; non-food rewards, etc). Diet interventions: low fat, low calorie, lean protein diet. Informal exercise measures discussed, e.g. walking dog. Assessment & Plan (07/08/2020 2:26 PM REAL TIME ANALYST): Reviewed need to lose weight, reviewed health benefits. Reviewed recommendations for daily intake & activity 20-30 minutes/day. Discussed healthy diet and importance of regular physical activity. Encounter for screening colonoscopy 07/02/2019 07/08/2020 Overview (07/02/2019): Added automatically from request for surgery [id number] Diarrhea 07/02/2019 07/08/2020 Assessment & Plan (07/02/2019 1:40 PM REAL TIME ANALYST): Advised on need for hydration and bulking up stool Neck pain 07/02/2019 10/08/2020 Assessment & Plan (07/02/2019 1:48 PM REAL TIME ANALYST): Will await response to physical therapy. Screening for malignant neoplasm of colon 06/25/2019 07/08/2020 Dyslipidemia 11/23/2016 07/08/2020 Assessment & Plan (10/06/2019 1:54 PM CDT): Will continue statin. Will plan on new labs in 3 months. Secondary hyperparathyroidism 11/23/2016 10/08/2020 Hypertension 10/01/2015 07/08/2020 Overview (08/04/2016): HTN (hypertension) Assessment & Plan (03/11/2020 2:07 PM REAL TIME ANALYST): Complicated with nephropathy Controlled with Lisinopril Plan: Low salt diet. Continue medication Improve diabetes control. Assessment & Plan (12/08/2019 4:10 PM CDT): Complicated with nephropathy Controlled with Lisinopril Plan: Informed patient about her kidney statu Continue medication Improve diabetes control. Assessment & Plan (10/06/2019 1:55 PM CDT): Stable today. Assessment & Plan (07/02/2019 1:37 PM REAL TIME ANALYST): She has responded well to the blood pressure medication. Impaired fasting glucose 09/18/201302/2021 Overview (08/04/2016): Impaired fasting glucose Stage 3 chronic kidney disease 09/13/2013 08/03/2021 Overview (2016): Chronic kidney failure Immunizations Immunization Administration Dates Next Due Influenza, Unspecified 03/13/2024(Deferr ed: Patient Refused),03/13/2024(Deferred: Patient Refused),02/05/2024(Deferred: Patient Refused),01/23/2024(Deferred: Patient Refused),03/08/2023(Deferred: Patient Refused),01/28/2023(Deferred: Patient Refused),12/29/2022(Deferred: Patient Refused),12/29/2022(Deferred: Patient Refused),12/29/2022(Deferred: Patient Refused),12/14/2022(Deferred: Patient Refused),03/16/2022(Deferred: Patient Refused),02/28/2022(Deferred: Patient Refused),02/28/2022(Deferred: Patient Refused),01/28/2022(Deferred: Patient Refused),01/28/2022(Deferred: Patient Refused),01/28/2022(Deferred: Patient Refused),01/28/2022(Deferred: Patient Refused),12/29/2021(Deferred: Patient Refused),11/22/2021(Deferred: Patient Refused),04/01/2021(Deferred: Patient Refused),02/04/2021(Deferred: Patient Refused),01/28/2021(Deferred: Patient Refused),01/28/2021(Deferred: Patient Refused),01/28/2021(Deferred: Patient Refused),01/28/2021(Deferred: Patient Refused),12/29/2020(Deferred: Patient Refused),12/29/2020(Deferred: Patient Refused),12/29/2020(Deferred: Patient Refused),07/08/2020(Deferred: Patient Refused),01/29/2020(Deferred: Patient Refused),01/29/2020(Deferred: Patient Refused),01/29/2020(Deferred: Patient Refused),01/29/2020(Deferred: Patient Refused),01/29/2020(Deferred: Patient Refused),07/02/2019(Deferred: Patient Refused),06/25/2019(Deferred: Patient Refused),01/28/2019(Deferred: Patient Refused),04/30/2018(Deferred: Patient Refused),04/30/2018(Deferred: Patient Refused) Pneumococcal Conjugate PCV 13 11/22/2021 (Deferred: Patient Refused),04/01/2021(Deferred: Patient Refused),02/04/2021(Deferred: Patient Refused),10/08/2020(Deferred: Patient Refused),07/08/2020(Deferred: Patient Refused),04/30/2018(Deferred: Patient Refused),04/30/2018(Deferred: Patient Refused) Pneumococcal Conjugate, Unspecified 11/22/2021(D eferred: Patient Refused) Pneumococcal Polysaccharide PPV23 2021(Deferred: Patient Refused),04/01/2021(Deferred: Patient Refused),02/04/2021(Deferred: Patient Refused),10/08/2020(Deferred: Patient Refused),07/08/2020(Deferred: Patient Refused),07/02/2019(Deferred: Patient Refused),06/25/2019(Deferred: Patient Refused) Tdap 05/24/2010 [facility] 12/18/2015,12/18/2015 Social History Tobacco Use Types Packs/Day Years Used Date Smoking Tobacco: Former Smokeless Tobacco: Never Tobacco Cessation:Counseling Given: Not Answered Comments:Smoking History Packs/day: 1 Cigarettes Alcohol Use Standard Drinks/Week Comments Yes 0 (1 standard drink = 0.6 oz pur e alcohol) AUDIT-C Answer Date Recorded Q1: How often do you have a drink containing alc ohol? Monthly or less 02/01/2024 Q2: How many drinks containi ng alcohol do you have on a typical day when you are drinking? 1 or 2 02/01/2024 Q3: How often do you have si x or more drinks on one occasion? Never 02/01/2024 PHQ-2 Answer Date Recorded PHQ-2 Total Score (If total score is 3 or more points, staff should administer the PHQ-9) 0 03/13/2024 Personal Safety Answer Date Recorded Have you ever been in or are you currently in a harmful physical or emotional relationship or is someone making you feel afraid or unsafe? Denies 02/01/2024 Comments No Sex and Gender Information Value Date Recorded Sex Assigned at Not on file Legal Sex Female 6:52 PM REAL TIME ANALYST Gender Identity Not on file Sexual Orientation Not on file Last Filed Vital Signs Vital Sign Reading Time Taken Comments Blood Pressure 142/78 06/02/2024 2:28 PM REAL TIME ANALYST Pulse 83 06/02/2024 2:20 PM REAL TIME ANALYST Temperature 36.8 C (98.2 F) 02/05/2024 1:01 PM CDT Respiratory Rate 18 03/13/2024 3:03 PM REAL TIME ANALYST Oxygen Saturation 97% 03/13/2024 3:03 PM REAL TIME ANALYST Inhaled Oxygen Concentration - - Weight 78.1 kg (172 lb 3.2 oz) 06/02/2024 2:20 P M REAL TIME ANALYST Height 157.5 cm (5' 2.01 ) 06/02/2024 2:20 PM CS T Body Mass Index 31.49 06/02/2024 2:20 PM REAL TIME ANALYST Plan of Treatment Not on file Procedures Procedure Name Priority Date/Time Associated Diagnosis Comments SCAN - RADIOLOGY/IMAGING 06/19/2024 POCT HEMOGLOBIN A1C Routine 06/02/2024 2:33 PM REAL TIME ANALYST Type 2 diabetes mellitus with hyperglycemia, without long-term current use of insulin (HCC) ALBUMIN CREATININE RATIO, URINE Routine 03/13/2024 4:02 PM REAL TIME ANALYST Type 2 diabetes mellitus with stage 3a chronic kidney disease, without long-term current use of insulin (HCC) RETINAVUE SCANNER - OU - BOTH EYES Routine 02/21/2024 Type 2 diabetes mellitus with hyperglycemia, without long-term current use of insulin (HCC) EGFR Routine 02/04/2024 3:42 AM CDT LIPID PANEL Routine 01/23/2024 3:51 PM CDT Controlled type 2 diabetes mellitus with diabetic polyneuropathy, without long-term current use of insulin (HCC) COLONOSCOPY 01/20/2021 1:05 PM CDT DEXA AXIAL SKELETON BONE DENSITY 1 OR MORE SITES Schedule HORACIO, Read HORACIO (Appt Today, Awaiting Results) 10/13/2020 1:49 PM CDT Encounter for osteoporosis screening in asymptomatic postmenopausal patient HM DIABETES FOOT EXAM Routine 11/23/2016 from Last 3 Months or Most Recently Relevant to Health Maintenance Results * SCAN - RADIOLOGY/IMAGING (06/19/2024) Anatomical Region Laterality Modality Other us Chris Garcia MD Edited Re sult - Final * POCT hemoglobin A1c (06/02/2024 2:33 PM REAL TIME ANALYST) Pathologist [facility] Hemoglobin A1C, POC 7.5 4.0 - 5.6 % Blood 06/02/2024 2:33 PM REAL TIME ANALYST Arthur Santiago DO POINT OF CARE TEST ORDERABL ES Final Result * (ABNORMAL) Albumin Creatinine Ratio, Urine (03/13/2024 4:02 PM REAL TIME ANALYST) [facility] Albumin Ur 25.8 mg/L Comment: Interpretive Data No reference range established. Current interpretive data was last revised 2018. Testing performed by: [facility], [address] [place] [address]., [id number] Creatinine Ur 20.1 mg/dL ABRAM LICONA (PAGE) Comment: Interpretive Data No reference range established. Current interpretive data was last revised 2018. Testing performed by: [facility], [address] [place] [address]., [id number] Albumin Creatinine Ratio, Ur 128(H) 1 - 29 mg/g [facility] (JIM) Comment:Testing performed by : [facility], [address] [place] [address]., [id number] Urine 03/13/2024 4:02 PM REAL TIME ANALYST 03/13/2024 10:15 PM REAL TIME ANALYST Betty Perez AIR TWIST OPERATOR LAB URINE ORDERABLES Final Re sult Performing Organization Address City/State/[facility] Co de Phone Number ABRAM [facility] (PAGE) 1 [facility] Department [place] [address] * RetinaVue Scanner - OU - Both Eyes (02/21/2024) Anatomical Region Laterality Modality Head Fundus Photograp hy 02/21/2024 Arthur Santiago DO OPHTH PHOTOGRAPHY Final Res ult * (ABNORMAL) eGFR (02/04/2024 3:42 AM CDT) [facility] eGFR 49(L) >=60 mL/min/1. 73 m2 Comment: Interpretive Data Reference Interval Normal >/= 90 mL/min/1.73m2 Mildly decreased* 60 - 89 mL/min/1.73m2 Mildly to moderately decreased 45 - 59 mL/min/1.73m2 Moderately to severely decreased 30 - 44 mL/min/1.73m2 Severely decreased 15 - 29 mL/min/1.73m2 Kidney Failure < 15 mL/min/1.73m2 *Relative to young adult level Estimated glomerular filtration rate is determined by the 2020 CKD-EPI equation recommended by the National Kidney Foundation (A Unifying Approach to GFR Estimation: Recommendations of the NKF-ASK Task Force on Reassessing the Inclusion of Race in Diagnosing Kidney Disease, JASN 2020). The CKD-EPI equation should not be used for patients with unstable renal function and has not been validated in children and those over 70. Current interpretive data was last reviewed 2021. Blood 02/04/2024 3:42 AM CDT 02/04/2024 6:01 AM CDT us Dez Lopez MD LAB BLOOD ORDERAB LES Final Result ABRAM MONAE (PAGE) 1 [facility] Department [place] [address] * (ABNORMAL) Lipid panel (01/23/2024 3:51 PM CDT) Cholesterol 193 30 - 199 mg/dL Comment: Interpretive Data Ages < or = 19 years Acceptable: <170 mg/dL Borderline high: 170-199 mg/dL High: >or= 200 mg/dL Ages > or = 20 years Desirable: <200 mg/dL Borderline high: 200-239 mg/dL High: >or= 240 mg/dL Literature References: 1. Expert Panel on Integrated Guidelines for Cardiovascular Health and Risk Reduction in Children and Adolescents. Pediatrics 2011;128:S213 2. NCEP Expert Panel. Circulation 2004;110:227 Current Interpretive Data was last revised on 2017. Testing performed by: [facility], [address] [place] [address], [place]., [id number] Triglycerides 230(H) <=149 mg/dL ABRAM LICONA (JIM) Comment: Interpretive Data Ages < or = 9 years Acceptable: <75 mg/dL Borderline high: 75-99 mg/dL High: >or= 100 mg/dL Ages 10 to 20 years Acceptable: <90 mg/dL Borderline high: 90-129 mg/dL High: >or= 130 mg/dL Ages > or = 20 years Desirable: <150 mg/dL Borderline high: 150-199 mg/dL High: 200-499 mg/dL Very high: >or= 499 mg/dL Literature References: 1. Expert Panel on Integrated Guidelines for Cardiovascular Health and Risk Reduction in Children and Adolescents. Pediatrics 2011;128:S213 2. NCEP Expert Panel. Circulation 2004;110:227 Current Interpretive Data was last revised on 2017. Testing performed by: [facility], [address] [place] [address]., [id number] HDL 51 >=40 mg/dL ABRAM LICONA (JIM) Comment: Interpretive Data Ages < or = 19 years Acceptable: >45 mg/dL Borderline low: 40-45 mg/dL Low: <40 mg/dL Ages > or = 20 years Desirable: >or= 60 mg/dL Low: <40 mg/dL Literature References: 1. Expert Panel on Integrated Guidelines for Cardiovascular Health and Risk Reduction in Children and Adolescents. Pediatrics 2011;128:S213 2. NCEP Expert Panel. Circulation 2004;110:227 Current Interpretive Data was last revised on 2017. Testing performed by: [facility], [address] [place] [address]., [id number] LDL, calculated 103 <=129 mg/dL ABRAM LICONA (JIM) Comment: Interpretive Data Ages < or = 19 years Acceptable: <110 mg/dL Borderline high: 110-129 mg/dL High: >or= 130 mg/dL Ages > or = 20 years Optimal: <100 mg/dL Near optimal: 100-129 mg/dL Borderline high: 130-159 mg/dL High: >160 mg/dL Calculated using the Pepe LDL-C estimating equation. This equation was implemented on 2023. Prior to this date LDL-C was estimated using the Friedewald equation. Literature References: 1. Expert Panel on Integrated Guidelines for Cardiovascular Health and Risk Reduction in Children and Adolescents. Pediatrics 2011;128:S213 2. NCEP Expert Panel. Circulation 2004;110:227 3. Afshin M et al. INDERJIT Cardiol. 2020 August 28;5(5):540-548. doi: 10.1001/[email or web address] Current Interpretive Data was last revised on 2023. Testing performed by: [facility], [address] [place] [address]., [id number] Non-HDL Cholesterol 142 mg/dL ABRAM LICONA (PAGE) Comment: Interpretive Data Ages < or = 19 years Acceptable: <120 mg/dL Borderline high: 120-144 mg/dL High: >145 mg/dL Ages > or = 20 years When triglycerides are >200 mg/dL, Non-HDL cholesterol is a secondary target of therapy with treatment goals that are 30 mg/dL greater than the LDL cholesterol target. Literature References: 1. Expert Panel on Integrated Guidelines for Cardiovascular Health and Risk Reduction in Children and Adolescents. Pediatrics 2011;128:S213 2. NCEP Expert Panel. Circulation 2004;110:227 Current Interpretive Data was last revised on 2017. Testing performed by: [facility], [address] [place] [address]., [id number] Chol/HDL ratio 4 WILEY LICONA (PAGE) Comment:Testing performed by : [facility], [address] [place] [address]., [id number] Blood 01/23/2024 3:51 PM CDT 01/23/2024 7:49 PM CDT Chris Garcia MD LAB BLOOD ORDERABLES Tarah l Result ABRAM MONAE (PAGE) 1 [facility] Department [place] [address] * COLONOSCOPY (01/20/2021 1:05 PM CDT) Anatomical Region Laterality Modality Other Narrative Procedure Note Zuhair Muñoz MD - 01/20/2021 1:05 PM CDT [facility] Patient Name: Sydnie Persaud Procedure Date: 01/20/2021 1:05 PM Date of : 1945 Admit Type: Outpatient Age: 75 Gender: Female Attending MD: Zuhair Muñoz M.D. Room: [facility] ENDOSCOPY ROOM 2 Note Status: Finalized Patient Profile: Refer to note in patient chart for documentation of history and physical. Procedure: Colonoscopy Indications: Last colonoscopy: May 2006, Positive Cologuard test Referring MD: Chris Garcia M.D. Providers: Zuhair Muñoz M.D. Impression: - Hemorrhoids found on perianal exam. - Diverticulosis in the sigmoid colon. - The examination was otherwise normal. - No specimens collected. Recommendation: - Discharge patient to home. - Resume previous diet. - Continue present medications. - Repeat colonoscopy in 10 years for screening purposes. - Return to primary care physician as previously scheduled. Medicines: Propofol per Anesthesia Complications: No immediate complications. Estimated Blood Loss: Estimated blood loss: none. Procedure: Pre-Anesthesia Assessment: - This assessment was completed [Time ofAssessment] prior to the administration of sedation. The benefits, risks and alternatives of theprocedure and sedation were discussed and informed consentwas obtained. All questions were answered. Please referto the signed informed consent document in the medical record. The bowel preparation used was Miralax via single dose instruction. The bowel preparation used was bisacodyl tablets via single dose instruction.The scope was passed under direct vision. TheColonoscope [id number] was introduced through the anus and advanced to the the cecum, identified by appendiceal orifice and ileocecal valve. The colonoscopy was performed without difficulty. The patient tolerated the procedure well. The qualityof the bowel preparation was good. Findings: Hemorrhoids were found on perianal exam. Multiple small and large-mouthed diverticula were found in thesigmoid colon. The exam was otherwise without abnormality. Electronically signed by Zuhair Muñoz M.D. Zuhair Muñoz M.D. 01/20/2021 1:54:04 PM Number of Addenda: 0 Note Initiated On: 01/20/2021 1:05 PM Procedure Code(s): --- Professional --- 42416, Colonoscopy, flexible; diagnostic, including collection of specimen(s) by brushing or washing, when performed (separateprocedure) Diagnosis Code(s): --- Professional --- K57.30, Diverticulosis of large intestine without perforation orabscess without bleeding R19.5, Other fecal abnormalities K64.9, Unspecified hemorrhoids CPT copyright 2019 [employer]. All rights reserved. The codes documented in this report are preliminary and upon sleep lab technician reviewmay be revised to meet current compliance requirements. Recognized by the [employer] for promoting quality in endoscopy us Zuhair Muñoz MD ENDOSCOPY PROCEDURES Final Re sult * Dexa Axial Skeleton Bone Density 1 or 2 Site (10/13/2020 1:49 PM CDT) Anatomical Region Laterality Modality Body N/A Other 10/13/2020 1:51 PM CDT Narrative 10/13/2020 1:53 PM CDT EXAM DESCRIPTION: DEXA AXIAL SKELETON BONE DENSITY 1 OR MORE SITES REASON FOR STUDY: 75 year old female with given history of asymptomatic screening. Vamp Presser/Model: Blink (S/N [id number]) CLINICAL INFORMATION: Current height: 62 inches Maximum height: 62 inches Weight: 180.4 pounds Risk factors: Early menopause (age 33-hysterectomy), no regular weight-bearing exercise, drinks caffeinated beverages. Reported use of vitamin-D and calcium. COMPARISON: None available. FINDINGS: AP LUMBAR SPINE L1-L4: Total BMD is 1.185 g/cm2 T-score is 1.3 LEFT HIP: Total BMD is 1.093 g/cm2 T-score is 1.2 Femoral neck BMD is 0.714 g/cm2 T-score is -1.2 Fracture risk assessment (FRAX): 10 year risk for a major osteoporotic fracture is 9.4 % 10 year risk for a hip fracture is 1.3 % The FRAX tool has not been validated in patients currently or previously treated with pharmacotherapy for osteoporosis. In such patients, clinical judgement must be exercised in interpreting FRAX scores as the fracture risk may be overestimated. IMPRESSION: Low bone mass. FRAX as above. REFERENCE: Bone mineral density: Normal (T-score above or = -1.0) Low bone mass (T-score between -1.0 and -2.5) replaces the previously used term osteopenia Osteoporosis (T-score = or below -2.5) Medical evaluation for secondary causes of low bone mineral density may be appropriate. FRAX is a World Health Organization validated fracture risk assessment tool that calculates a person's 10 year probability of a major osteoporosis related fracture and hip fracture. According to the National Osteoporosis Foundation guidelines, postmenopausal women and men age 50 or older with low bone mass and a 10 year probability of a major osteoporosis related fracture = or greater than 20% or a 10 year probability of a hip fracture = or greater than 3% should be considered for treatment. For further information, including treatment recommendations, please refer to the 2013 ISCD Official Positions (http://www.iscd.org) and the NOF's Clinician's Guide to Prevention and Treatment of Osteoporosis (http://www.nof.org/professionals/clinical-guidelines) THIS IS AN ELECTRONICALLY VERIFIED FINAL REPORT 10/13/2020 1:53 PM - Electronically signed by Vlad Nichols M.D., MD: Report ID: [id number] Reading Location: [place] [address] Procedure Note Vlad Nichols MD - 10/13/2020 EXAM DESCRIPTION: DEXA AXIAL SKELETON BONE DENSITY 1 OR MORE SITES REASON FOR STUDY: 75 year old female with given history of asymptomatic screening. Vamp Presser/Model: [employer] SL (S/N [id number]) CLINICAL INFORMATION: Current height: 62 inches Maximum height: 62 inches Weight: 180.4 pounds Risk factors: Early menopause (age 33-hysterectomy), no regularweight-bearing exercise, drinks caffeinated beverages. Reported use of vitamin-D and calcium. COMPARISON: None available. FINDINGS: AP LUMBAR SPINE L1-L4: Total BMD is 1.185 g/cm2 T-score is 1.3 LEFT HIP: Total BMD is 1.093 g/cm2 T-score is 1.2 Femoral neck BMD is 0.714 g/cm2 T-score is -1.2 Fracture risk assessment (FRAX): 10 year risk for a major osteoporotic fracture is 9.4 % 10 year risk for a hip fracture is 1.3 % The FRAX tool has not been validated in patients currently or previously treated with pharmacotherapy for osteoporosis. In such patients, clinical judgement must be exercised in interpreting FRAX scores as the fracturerisk may be overestimated. IMPRESSION: Low bone mass. FRAX as above. REFERENCE: Bone mineral density: Normal (T-score above or = -1.0) Low bone mass (T-score between -1.0 and -2.5) replaces thepreviously used term osteopenia Osteoporosis (T-score = or below -2.5) Medical evaluation for secondary causes of low bone mineral density may be appropriate. FRAX is a World Health Organization validated fracture risk assessmenttool that calculates a person's 10 year probability of a major osteoporosisrelated fracture and hip fracture. According to the National OsteoporosisFoundation guidelines, postmenopausal women and men age 50 or older with low bonemass and a 10 year probability of a major osteoporosis related fracture = or greater than 20% or a 10 year probability of a hip fracture = or greaterthan 3% should be considered for treatment. For further information, including treatment recommendations, please referto the 2013 ISCD Official Positions (http://www.iscd.org) and the NOF's Clinician's Guide to Prevention and Treatment of Osteoporosis (http://www.nof.org/professionals/clinical-guidelines) THIS IS AN ELECTRONICALLY VERIFIED FINAL REPORT 10/13/2020 1:53 PM - Electronically signed by Vlad Nichols M.D. 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 PROCEDURES Final Re sult * DIABETES FOOT EXAM (11/23/2016) Diabetic Foot Exam Normal Historical Provider MD HEALTH MAINTENANCE Final Result from Last 3 Months or Most Recently Relevant to Health Maintenance Insurance [facility] MEDICARE ADVANTAGE Advance Directives For more information, please contact: [phone] * Full Code (Latest Code Status on File) Date Activated Date Inactivated Comments 02/01/2024 10:11 AM 02/04/2024 4:19 PM * Full Code Date Activated Date Inactivated Comments 01/20/2021 12:21 PM 01/20/2021 6:45 PM Care Teams Director Community Health Nursing Relationship Specialty Start Date End Date Chris Garcia MD [address] [place] [address] PCP - General Family Medicine 11/15/20
--- OUTSIDE RECORDS SUMMARY | 2024-07-21 16:29 | XMS_ITS | Clinical Summary ---
Author Organization [facility] Medical Office Building A Address [address] [place] [address] Care Team Providers Care Size Worker Name Role Phone Chris Garcia MD Primary Care Provider [phone] Allergies Active Allergy Reactions Criticality Noted Date [...] directed to test blood sugars 100 each 01/23/20 Active lancets 33 gauge misc Use as directed to test blood sugars 100 each 4 Active amLODIPine (NORVASC) 10 mg tablet Take 1 tablet (10 mg total) by mouth daily 30 tablet 11 10/08/202 4 10/08/20 25 Active Additional Information Patient not taking.Reported on 06/02/2024 losartan (COZAAR) 100 mg tablet Take 1 tablet (100 mg total) by mouth daily 30 tablet 11 4 02/05/20 25 Active blood-glucose meter miscIndications :Type 2 diabetes mellitus with hyperglycemia, without long-term current use of insulin (HCC) Use daily or as directed for monitoring of diabetes. Nicole Contour Glucose Meter - DX: E11.65 1 each 4 Active lancets 33 gauge miscIndications :Type 2 diabetes mellitus with hyperglycemia, without long-term current use of insulin (HCC) Use to test blood sugar once daily. 100 each 11 4 Active Jardiance 25 mg tablet Take 1 tablet (25 mg total) by mouth daily 30 tablet 5 4 02/21/20 25 Active Additional Information Patient not taking.Reported on [...] 03/13/2024 Assessment & Plan (03/13/2024 3:35 PM SECOND STEWARD): Kidney function is decreasing will continue to monitor. Discussed avoids salt, NSAIDs, and proper hydration. Sydnie is not interested in seeing Nephrology at this time. We will continue to monitor closely. Chronic right shoulder pain 03/13/2024 Assessment & Plan (03/13/2024 4:34 PM SECOND STEWARD): Pain not well controlled on Tramadol. Patient saw ortho and was given an injection which did not help. Scobey sent in for pain relief to see if that will work better than Tramadol BMI 32.0-32.9,adult 03/13/2024 Assessment & Plan (03/13/2024 3:58 PM SECOND STEWARD): Weight appropriate for patient. Hyponatremia 02/05/2024 Assessment & Plan (02/05/2024 1:35 PM CDT): HCTZ discontinued. Dizziness 02/01/2024 Assessment & Plan (02/13/2024 6:41 AM CDT): Dizziness has resolved; no falls or safety concerns. Headache has resolved. Mild recurrent major depression 03/08/2023 Assessment & Plan (03/08/2023 3:24 PM SECOND STEWARD): PHQ = 2 Patient reports moods are stable overall, some bad days but has more good days than bad days. Sleeping well. Notable improvement in moods with duloxetine. Angina pectoris, unspecified 02/28/2022 Assessment & Plan (03/08/2023 3:28 PM SECOND STEWARD): Denies any recent chest pain or need for nitro Blood pressure well controlled. Assessment & Plan (02/28/2022 4:10 PM CDT): Nitro refilled. Physical exam, annual 02/28/2022 Assessment & Plan (03/08/2023 3:11 PM SECOND STEWARD): Preventative exam. 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 3. Have an active lifestyle, strive for [...] 11/22/2021 Assessment & Plan (03/08/2023 3:26 PM SECOND STEWARD): Stable; patient is taking medications as prescribed. [...] so. Assessment & Plan (06/16/2022 2:54 PM SECOND STEWARD): Patient with chronic pain, taking medications as [...] down. Assessment & Plan (04/01/2021 2:02 PM SECOND STEWARD): Never started fluoxetine as papers with medication [...] (01/04/2021): Added automatically from request for surgery [id number] Dyslipidemia associated with type 2 diabetes malcolm litus 07/08/2020 Assessment & Plan (02/13/2024 6:42 AM [...] box. Assessment & Plan (06/16/2022 2:50 PM SECOND STEWARD): Continues on pravastatin 40 mg daily as prescribed. Reviewed labs today with patient. Assessment & Plan (02/28/2022 4:08 PM CDT): 07/08/20 KD=040 HDL=52 TG=80 LDL=55 TC/HDL=2.0 06/30/21 HO=458 HDL=40 QY=996 KWN=058 TC/HDL=6 KJSUMA=322 11/22/21 BM=458 HDL=42 YA=609 GYX=722 TC/HDL=6 HBUOJY=654 Pravastatin 40mg daily. Some metallic taste per [...] & Plan (11/22/2021 6:42 PM CDT): 07/08/20 TQ=758 HDL=52 TG=80 LDL=55 TC/HDL=2.0 06/30/21 QD=662 HDL=40 LV=149 YRU=459 TC/HDL=6 VYAHIQ=829 Still does not want to take statins. Reviewed that total cholesterol and LDL levels elevated; require statins especially with diabetes diagnosis. Reviewed diet necessary to help decrease total cholesterol and LDL. States that she eats red meat at least 3 times a week and does not want to decrease that. Reviewed diet/exercise recommendations. Assessment & Plan (08/03/2021 7:13 PM CDT): SZ=714 HDL=40 ZO=892 FOD=102 TC/HDL=6 WVQXLD=455 Does not want to take statins. Reviewed [...] recommendations. Assessment & Plan (07/01/2021 10:50 PM SECOND STEWARD): Has been off of atorvastatin since 05/31/21. [...] & Plan (02/04/2021 6:07 PM CDT): 06/25/19 NS=404 HDL=49 OF=346 JQU=625 TC/HDL=5.0 07/08/20 DN=083 HDL=52 TG=80 LDL=55 TC/HDL=2.0 Atorvastatin 20mg daily. Patient should focus on limiting bad fats in the diet and using exercise as a way to improve the lipid status. Secondary prevention. Reviewed medications. Denies any statin Ses. Reviewed diet/exercise recommendations. Reviewed red flags. Assessment & Plan (10/08/2020 4:03 PM CDT): 10/01/15 GZ=375 HDL=43 TG= 246 LDL=81 06/25/19 TC246 HDL=49 BT=580 TCI=405 TC/HDL=5.0 07/08/20 TC123 HDL=52 TG=80 LDL= 55 TC/HDL=2 Atorvastatin 20mg daily. Denies any SE/myalgias Reviewed previous labs. Will check labs today and make adjustments to medications as needed. Secondary prevention Discussed focusing on limiting bad fats in the diet and using exercise as a way to improve cholesterol. Reviewed exercise recommendations and red flags warranting further evaluation. Assessment & Plan (07/08/2020 3:29 PM SECOND STEWARD): 10/01/15 LU=704 HDL=43 VP=977 LDL=81 06/25/19 RA=912 HDL=49 FY=719 HBZ=480 TC/HDL=5.0 Atorvastatin 20mg daily. Denies myalgias. We [...] 07/08/2020 Assessment & Plan (03/13/2024 3:36 PM SECOND STEWARD): Advised that Amlodipine could be causing lower leg swelling. Patient states she is wanting to try to stop the medication and see if that will help her swelling without impacting her HTN. Assessment & Plan (02/05/2024 1:36 PM CDT): BP stable; now taking losartan 100 mg daily and amlodipine 10 mg daily. Assessment & Plan (03/08/2023 3:23 PM SECOND STEWARD): Blood pressure is well controlled, continue losartan-hydrochlorothiazide 125 mg tablet daily Assessment & Plan (12/14/2022 6:22 PM CDT): Blood pressure is well controlled, no changes in current medication. Assessment & Plan (06/16/2022 2:52 PM SECOND STEWARD): BP elevated today, patient reports she has [...] daily. Blood pressure is greatly improved. Mrs. Presaud aware to continue to monitor blood pressure. [...] 08/02/21. Assessment & Plan (07/01/2021 10:55 PM SECOND STEWARD): Increase losartan/hctz to 100/25mg. Continues on metoprolol. [...] results. Assessment & Plan (07/08/2020 2:27 PM SECOND STEWARD): Changed from lisinopril/hczt to losartan/hctz d/t cough. [...] 07/08/2020 Assessment & Plan (07/01/2021 10:58 PM SECOND STEWARD): Sparingly uses tramadol. Refilled today. Takes tramadol [...] cream Assessment & Plan (07/08/2020 3:19 PM SECOND STEWARD): Has tramadol at home that she uses only at bedtime when she can't sleep d/t pain (Dr Greene filled 2016). Takes 1 advil daily. C spine xr ordered. Has been using warm pack, muscle rubs. No UE radiculopathy Refused pneumococcal vaccination 06/25/2019 Assessment & Plan (02/28/2022 4:05 PM CDT): Discussed and the patient refuses immunization today. Educated regarding the need to vaccinate for personal protection. Assessment & Plan (07/01/2021 10:48 PM SECOND STEWARD): Discussed and the patient refuses immunization today. Educated regarding the need to vaccinate for personal protection. Assessment & Plan (04/05/2021 7:12 PM SECOND STEWARD): Discussed and the patient refuses immunization today. Educated regarding the need to vaccinate for personal protection Assessment & Plan (02/04/2021 6:10 PM CDT): Discussed and the patient refuses immunization today. Educated regarding the need to vaccinate for personal protection. Assessment & Plan (07/08/2020 2:27 PM SECOND STEWARD): Discussed and the patient refuses immunization today. Educated regarding the need to vaccinate for personal protection. Assessment & Plan (06/25/2019 9:21 AM SECOND STEWARD): She refuses. Refused influenza vaccine 06/25/2019 Assessment & Plan (02/28/2022 4:05 PM CDT): Discussed and the patient refuses immunization today. Educated regarding the need to vaccinate for personal protection and to limit the viruses in the community to protect those most vulnerable. Assessment & Plan (07/01/2021 10:48 PM SECOND STEWARD): Discussed and the patient refuses immunization today. Educated regarding the need to vaccinate for personal protection and to limit the viruses in the community to protect those most vulnerable. Assessment & Plan (04/05/2021 7:12 PM SECOND STEWARD): Discussed and the patient refuses immunization today. [...] vulnerable. Assessment & Plan (07/08/2020 2:27 PM SECOND STEWARD): Discussed and the patient refuses immunization today. Educated regarding the need to vaccinate for personal protection and to limit the viruses in the community to protect those most vulnerable. Assessment & Plan (06/25/2019 9:21 AM SECOND STEWARD): She refuses. Idiopathic chronic gout of multiple [...] time. Assessment & Plan (06/16/2022 2:56 PM SECOND STEWARD): Lab Results Component Value Date HGBA1C 7.6 [...] intake. Assessment & Plan (07/01/2021 10:47 PM SECOND STEWARD): A1c, micoralbumin & cmp ordered. Last A1c's: [...] evaluation. Assessment & Plan (07/08/2020 3:31 PM SECOND STEWARD): Lab Results Component Value Date HGBA1C 7.6 [...] evaluation. Assessment & Plan (03/11/2020 2:05 PM SECOND STEWARD): Diagnosed few years ago Started treatment in [...] month Assessment & Plan (07/02/2019 1:49 PM SECOND STEWARD): She states blood sugars have been stable at home. Will continue current prescribed therapy. She states she has been colon Endocrinology to schedule appointment. She has also scheduling her eye exam appointment. Obstructive sleep apnea syndrome 05/14/2014 Overview (08/04/2016): ROSA M Assessment & Plan (07/02/2019 1:36 PM SECOND STEWARD): She states she has been sleeping well this past week. Will continue current prescribed therapy. Assessment & Plan (06/25/2019 9:21 AM SECOND STEWARD): She does not wish to have a sleep study at this time. Subclinical hypothyroidism 09/27/2013 Overview (08/04/2016): Subclinical hypothyroidism Assessment & Plan (07/08/2020 3:30 PM SECOND STEWARD): TSH reflex T4 ordered; will contact w/results [...] 07/16/2021 Assessment & Plan (07/01/2021 11:01 PM SECOND STEWARD): Reviewed need to lose weight, reviewed health benefits. Reviewed recommendations for daily intake & activity 20-30 minutes/day. Discussed healthy diet and importance of regular physical activity. Class 1 obesity due to exces s calories without serious comorbidity with body mass index (BMI) of 32.0 to 32.9 in adult 04/01/202106/2021 Assessment & Plan (04/01/2021 2:03 PM SECOND STEWARD): Reviewed need to lose weight, reviewed health benefits. Reviewed recommendations for daily intake & activity 20-30 minutes/day. Discussed healthy diet and importance of regular physical activity. CKD stage 3 due to type 2 diabetes mellitus 02/04/2021 03/13/2024 Assessment & Plan (03/08/2023 3:23 PM SECOND STEWARD): Stable continues to avoid NSAIDs. Diabetes well controlled. Encouraged patient to schedule eye exam at her convenience. Assessment & Plan (12/14/2022 6:21 PM CDT): Stable, repeat labs ordered today. Assessment & Plan (09/14/2022 2:48 PM CDT): Again reviewed need to better control diabetes. Stable. Assessment & Plan (06/16/2022 2:49 PM SECOND STEWARD): Estimated Creatinine Clearance: 30.7 mL/min (A) (by [...] CM Assessment & Plan (07/01/2021 11:01 PM SECOND STEWARD): Component Ref Range & Units 11 mo [...] 11/22/2021 Assessment & Plan (04/05/2021 7:12 PM SECOND STEWARD): Never started fluoxetine. Feels that depression has [...] exercise. Assessment & Plan (03/08/2023 3:23 PM SECOND STEWARD): Stable, continues with active lifestyle. Assessment & Plan (09/14/2022 2:49 PM CDT): Patient enjoying more activities, dancing and getting our of the house. Assessment & Plan (06/16/2022 2:49 PM SECOND STEWARD): Discussed healthy diet and importance of regular [...] dog. Assessment & Plan (07/08/2020 2:26 PM SECOND STEWARD): Reviewed need to lose weight, reviewed health benefits. Reviewed recommendations for daily intake & activity 20-30 minutes/day. Discussed healthy diet and importance of regular physical activity. Encounter for screening colonoscopy 07/02/2019 07/08/2020 Overview (07/02/2019): Added automatically from request for surgery [id number] Diarrhea 07/02/2019 07/08/2020 Assessment & Plan (07/02/2019 1:40 PM SECOND STEWARD): Advised on need for hydration and bulking up stool Neck pain 07/02/2019 10/08/2020 Assessment & Plan (07/02/2019 1:48 PM SECOND STEWARD): Will await response to physical therapy. Screening for malignant neoplasm of colon 06/25/2019 07/08/2020 Dyslipidemia 11/23/2016 07/08/2020 Assessment & Plan (10/06/2019 1:54 PM CDT): Will continue statin. Will plan on new labs in 3 months. Secondary hyperparathyroidism 11/23/2016 10/08/2020 Hypertension 10/01/2015 07/08/2020 Overview (08/04/2016): HTN (hypertension) Assessment & Plan (03/11/2020 2:07 PM SECOND STEWARD): Complicated with nephropathy Controlled with Lisinopril Plan: Low salt diet. Continue medication Improve diabetes control. Assessment & Plan (12/08/2019 4:10 PM CDT): Complicated with nephropathy Controlled with Lisinopril Plan: Informed patient about her kidney statu Continue medication Improve diabetes control. Assessment & Plan (10/06/2019 1:55 PM CDT): Stable today. Assessment & Plan (07/02/2019 1:37 PM SECOND STEWARD): She has responded well to the blood pressure medication. Impaired fasting glucose 09/18/201302/2021 Overview (08/04/2016): Impaired fasting glucose Stage 3 chronic kidney disease 09/13/2013 08/03/2021 Overview (2016): Chronic kidney failure Encounters Date Type Department Care Team Description 06/19/2024 Orders Only [facility] Management [address] [place] [id number] Chris Garcia MD 06/12/2024 Telephone [facility] Diabetes Endocrine Care at [address] [phone] Arthur Santiago DO 06/02/2024 2:30 PM SECOND STEWARD Office Visit [facility] Diabetes Endocrine Care at [address] [phone] Arthur Santiago, DO Type 2 diabetes mellitus with hyperglycemia, without long-term current use of insulin (HCC) (Primary Dx); Hypertension associated with diabetes (HCC) from Last 3 Months Immunizations Immunization Administration Dates Next Due Influenza, [...] Patient Refused) Tdap 05/24/2010 [facility] 12/18/2015,12/18/2015 Surgical History Surgery Date Site/Laterality Comments OTHER SURGICAL HISTORY 01-urologist: jb OTHER SURGICAL HISTORY 04/30/1990 - 04/29/1991 Rt wrist tendon TONSILLECTOMY Tonsillectomy OTHER SURGICAL HISTORY 70s Rt oopherectomy OTHER SURGICAL HISTORY 04/30/2011 - 04/29/2012 left knee meniscus sx. OTHER SURGICAL HISTORY 04/30/1982 - 04/29/1983 Gall Bladder: Cholecystectomy OTHER SURGICAL HISTORY 04/30/2011 - 04/29/2012 hospital stay-diverticulitis OTHER SURGICAL HISTORY 70's Hysterectomy (LORETA) benign disease OTHER SURGICAL HISTORY mild CAD cath 2013. CATARACT EXTRACTION Cataract extraction CARDIAC CATHETERIZATION 04/30/2013 - 04/29/2014 COLONOSCOPY 10/28/2006 - 11/27/2006 CHOLECYSTECTOMY ABDOMINAL SURGERY HYSTERECTOMY COLON SURGERY EYE SURGERY Medical History Medical History Date Comments Hx Other Medical 01-urologist Hypercholesterolemia High Choles terol Hx Other Medical Chronic Kidney Failure Hx Other Medical Diverticulitis Hx Other Medical B/L carpal tunn el Hypertension Hypertension Hx Other Medical 2009 cardiac cath de yusef Steatohepatitis steatohepatitis Hx Other Medical Gall Bladder Hx Other Medical Headache, migra ine Hx Other Medical microscopic hem aturia: work up negative. Hx Other Medical gout attack Coronary artery disease Chest pain Shortness of breath Diabetes mellitus (HCC) Thyroid disease Sleep apnea Chronic kidney disease Type 2 diabetes mellitus (HCC) Family History Medical History Relation Name Comments Bipolar disorder Brother 3 Bipolar dis order; Seizures Brother 4 Seizure disorde r; Sleep apnea Father Obstructive sle ep apnea; Throat cancer Father Cancer -throat ; Bone cancer Maternal Grandmother Cancer -bone; Cancer Mother Cancer -; Coronary artery disease Mother Debora nary artery disease; Diabetes Mother Diabetes mellit us; Hypertension Mother Hypertension; Other Mother bone CA; /old a ge; Cause of : old age Valvular heart disease Mother michelleu lar heart disease; Other Sister 1 jose maria Overdose illega l drugs; Hypertension Sister 2 ga Hypertension; Sleep apnea Sister 2 ga Obstructive sle ep apnea; Relation Name Status Comments Brother 1 Alive Brother 2 Alive Brother 3 Brother 4 Father Maternal Grandmother Alive Mother Sister 1 jose maria Alive Sister 2 ga Alive Sister 3 ga Alive Social History Tobacco Use Types Packs/Day Years [...] on file Legal Sex Female 6:52 PM SECOND STEWARD Gender Identity Not on file Sexual Orientation Not on file Obstetrics History Last Filed Vital Signs Vital Sign Reading Time Taken Comments Blood Pressure 142/78 06/02/2024 2:28 PM SECOND STEWARD Pulse 83 06/02/2024 2:20 PM SECOND STEWARD Temperature 36.8 C (98.2 F) 02/05/2024 1:01 PM CDT Respiratory Rate 18 03/13/2024 3:03 PM SECOND STEWARD Oxygen Saturation 97% 03/13/2024 3:03 PM SECOND STEWARD Inhaled Oxygen Concentration - - Weight 78.1 kg (172 lb 3.2 oz) 06/02/2024 2:20 P M SECOND STEWARD Height 157.5 cm (5' 2.01 ) 06/02/2024 2:20 PM CS T Body Mass Index 31.49 06/02/2024 2:20 PM SECOND STEWARD Plan of Treatment Health Maintenance Due Date Last Done Comments Hepatitis C Screening 1945 Hepatitis B Screening 08/04/1965 Pneumococcal vaccine 65+ (1 of 2 - PCV) 08/04/1966 Zoster Vaccine (2 of 3) 02/12/2016 12/18/2015, 12/17 DTaP/Tdap/Td Vaccine (2 - Td or Tdap) 05/24/2020 05/24/2010 Osteoporosis Screening-Bone Density Scan 10/13/2022 10/13/2020, 06/17/2013 Well Visit 65+ 03/08/2024 03/08/2023, 04/2021, 10/08/2020 Influenza Vaccine (#1) 2024 Postp oned from 12/30/2023 (Patient declined, but will receive in the future) Hemoglobin A1C 11/30/2024 06/02/2024, 12/30, 12/14/2022, Additional history exists Lipid Panel 01/22/2025 01/23/2024, 11/28, 06/14/2022, Additional history exists eGFR 02/03/2025 02/04/2024, 09/2023, 02/02/2024, Additional history exists Foot Exam 02/04/2025 02/05/2024, 12/2022, 04/01/2021, Additional history exists Albumin Creatinine Ratio, Urine 03/13/2025 03/13/2024, 01/23/2024, 12/14/2022, Additional history exists Depression Screening 03/13/2025 03/13/2024, 02/05/2024, 01/23/2024, Additional history exists Fall Risk Assessment 03/13/2025 03/13/2024, 02/05/2024, 02/04/2024, Additional history exists Dilated Eye Exam 02/20/2026 02/21/2024, , 07/26/2015 Colon Cancer Screening-CT Colonography Discontinued 01/20/2021, 06/04/2006 Colon Cancer Screening-Colonoscopy Discontinued 01/20/2021, 06/04/2006 Colon Cancer Screening-DNA Stool Discontinued 01/20/2021, 10/27/2020, 06/04/2006 Colon Cancer Screening-FIT Discontinued 01/20, 10/27/2020, 06/04/2006 Colon Cancer Screening-FOBT Discontinued 01/20/2021, 10/27/2020, 06/04/2006 Colon Cancer Screening-Sigmoidoscopy Discontinued 01/20/2021, 06/04/2006 Colorectal Cancer Screening Discontinued Procedures Procedure Name Priority Date/Time Associated Diagnosis Comments SCAN - RADIOLOGY/IMAGING 06/19/2024 POCT HEMOGLOBIN A1C Routine 06/02/2024 2:33 PM SECOND STEWARD Type 2 diabetes mellitus with hyperglycemia, without long-term current use of insulin (HCC) ALBUMIN CREATININE RATIO, URINE Routine 03/13/2024 4:02 PM SECOND STEWARD Type 2 diabetes mellitus with stage 3a [...] * POCT hemoglobin A1c (06/02/2024 2:33 PM SECOND STEWARD) Hemoglobin A1C, POC 7.5 4.0 - 5.6 % Blood 06/02/2024 2:33 PM SECOND STEWARD Arthur Santiago DO POINT OF CARE TEST ORDERABL ES Final Result * (ABNORMAL) Albumin Creatinine Ratio, Urine (03/13/2024 4:02 PM SECOND STEWARD) Albumin Ur 25.8 mg/L Comment: Interpretive Data No reference range established. Current interpretive data was last revised 2018. Testing performed by: [facility], [address] [place] [address]., [id number] Creatinine Ur 20.1 mg/dL ABRAM LICONA (JIM) Comment: Interpretive Data No reference range established. Current interpretive data was last revised 2018. Testing performed by: [facility], [address] [place] [address]., [id number] Albumin Creatinine Ratio, Ur 128(H) 1 - 29 mg/g ABRAM LICONA (JIM) Comment:Testing performed by : [address] [id number] Urine 03/13/2024 4:02 PM SECOND STEWARD 03/13/2024 10:15 PM SECOND STEWARD Betty Perez BONDING MACHINE SETTER LAB URINE ORDERABLES Final Re sult ABRAM LICONA (JIM) 1 [facility] Department [place] [address] * RetinaVue Scanner - OU - Both Eyes (02/21/2024) Anatomical Region Laterality Modality Head Fundus Photograp hy 02/21/2024 Arthur Santiago DO OPHTH PHOTOGRAPHY Final Res ult * (ABNORMAL) eGFR (02/04/2024 3:42 AM CDT) eGFR 49(L) >=60 mL/min/1. 73 m2 Comment: [...] LAB BLOOD ORDERAB LES Final Result [facility] [place] [facility] Department of Laboratories [place], [place] [id number] * (ABNORMAL) Lipid panel (01/23/2024 3:51 PM [...] last revised on 2017. Testing performed by: [facility], [address] [place] [address]., [id number] Triglycerides 230(H) <=149 mg/dL ABRAM LICONA (JIM) [...] last revised on 2017. Testing performed by: [facility], [address] [place] [address]., [id number] HDL 51 >=40 mg/dL ABRAM LICONA (JIM) [...] last revised on 2017. Testing performed by: [facility], [address] [place] [address]., [address] LDL, calculated 103 <=129 mg/dL ABRAM LICONA [...] 3. Afshin M et al. INDERJIT Cardiol. 2019August 28;5(5):540-548. doi: [email or web address] Current Interpretive Data was last revised on 2023. Testing performed by: [address] [address] Non-HDL Cholesterol 142 mg/dL ABRAM LICONA (JIM) Comment: Interpretive Data [...] last revised on 2017. Testing performed by: [facility], [address] [place] [address]., [id number] Chol/HDL ratio 4 WILEY LICONA (JIM) Comment:Testing performed by : [address] [address] Blood 01/23/2024 3:51 PM CDT 01/23/2024 7:49 PM CDT us Chris Garcia MD LAB BLOOD ORDERABLES Tarah l Result ABRAM LICONA (JIM) 1 [facility] Department of Laboratories [place], [place] [id number] * COLONOSCOPY (01/20/2021 1:05 PM CDT) Anatomical Region Laterality Modality Other Narrative Procedure Note Zuhair Muñoz MD - 01/20/2021 1:05 PM CDT [facility] Patient Name: Sydnie Persaud Procedure Date: 01/20/2021 1:05 PM Date of : 1945 Admit Type: Outpatient Age: 75 Gender: Female Attending MD: Zuhair Muñoz M.D. Room: [facility] RO[facility] 2 Note Status: Finalized Patient [...] scope was passed under direct vision. TheColonoscope [id number] was introduced through the anus and advanced [...] 1:05 PM Procedure Code(s): --- Professional --- 44847, Colonoscopy, flexible; diagnostic, including collection of specimen(s) by brushing or washing, when performed (separateprocedure) Diagnosis Code(s): --- Professional --- K57.30, Diverticulosis of large intestine without perforation orabscess without bleeding R19.5, Other fecal abnormalities K64.9, Unspecified hemorrhoids CPT copyright 2019 [employer]. All rights reserved. The codes documented in this report are preliminary and upon linen worker reviewmay be revised to meet current compliance requirements. Recognized by the [employer] for promoting quality [...] female with given history of asymptomatic screening. Analytical Laboratory Technician/Model: [employer] (S/N [id number]) CLINICAL INFORMATION: Current height: 62 inches Maximum [...] by Vlad Nichols M.D. MD: Report ID: [id number] Reading Location: [place] [address] Procedure Note Vlad Nichols MD - 10/13/2020 EXAM DESCRIPTION: DEXA AXIAL SKELETON BONE DENSITY 1 OR MORE SITES REASON FOR STUDY: 75 year old female with given history of asymptomatic screening. Analytical Laboratory Technician/Model: [employer] (S/N [id number]) CLINICAL INFORMATION: Current height: 62 inches Maximum [...] by Vlad Nichols M.D. MD: Report ID: [id number] Reading Location: [place] [address] Sydni Arroyo BONDING MACHINE SETTER IMG DXA PROCEDURES Final Re sult * DIABETES FOOT EXAM (11/23/2016) Diabetic Foot Exam Normal Historical Provider HEALTH MAINTENANCE Final Result from Last 3 Months or Most Recently Relevant to Health Maintenance Insurance [facility] MEDICARE ADVANTAGE Advance Directives For more information, please contact: [phone] * Full Code (Latest Code Status on File) Date Activated Date Inactivated Comments 02/01/2024 10:11 AM 02/04/2024 4:19 PM * Full Code Date Activated Date Inactivated Comments 01/20/2021 12:21 PM 01/20/2021 6:45 PM Care Teams Size Worker Relationship Specialty Start Date End Date Chris Garcia MD [address] [place] [address] PCP - General Family Medicine 11/15/20
== END 2024-07-21 14:13 | disposition home or self-care (01) ==
PROVIDERS: PCP Family Medicine; Visit Provider Orthopaedic Surgery
DX: E11.9 Type 2 diabetes mellitus without complications (principal); M19.011 Primary osteoarthritis, right shoulder; E11.59 Type 2 diabetes mellitus with other circulatory complications; I15.2 Hypertension secondary to endocrine disorders
CPT/HCPCS: 36415; 82040; 82565; 82947; 83036; 85014; 85018; 93005

== ENCOUNTER 2024-07-22 15:19 | Outpatient (CLI) | payer MEDICARE, SELFPAY ==
[2024-07-22 15:43] LABS: Albumin Level 4.5 g/dL (3.5-5.1); Estimated Glomerular Filt Rate 39; Glucose 156 mg/dL (65-110)
--- OUTSIDE RECORDS SUMMARY | 2024-07-22 17:55 | XMS_ITS | Clinical Summary ---
Author Organization [facility] Onsite Care Address [address] [place] [address] Care Team Providers Care Core Dipper Name Role Phone Unavailable Primary Care Provider Unavailabl e Source Comments [facility],non-owned Affiliates and Associated Physician Practices is amultiple site organization consisting of ambulatory clinics and hospital sitesin [place], [place], [place] and [place]. This disclosure is being madepursuant to the Care Everywhere program and may not contain all information available regarding this patient. Last updated 18.[facility] Onsite Care Allergies Active Allergy Reactions Criticality Noted Date [...] Comments Blood Pressure 106/60 06/17/2009 5:21 PM [employer] Pulse 77 06/17/2009 5:21 PM [employer] Temperature 36.8 C (98.3 F) 06/17/2009 4:18 PM [employer] Respiratory Rate 16 06/17/2009 5:21 PM [employer] [facility] Oxygen Saturation 91% 06/17/2009 4:18 PM [employer] Inhaled Oxygen Concentration - - Weight 85.2 kg (187 lb 13.3 oz) 010 12:23 AM [employer] Height 157.5 cm (5' 2 ) 06/17/2009 12:2 3 AM [employer] [facility] Body Mass Index 34.35 06/17/2009 12:23 AM [employer] [facility] Plan of Treatment Health Maintenance Due Date [...]
--- OUTSIDE RECORDS SUMMARY | 2024-07-22 17:55 | XMS_ITS | Encounter Summary ---
Author Organization [facility] Healthcare Address [address] [place] [address] Care Team Providers Care Deer Farm Worker Name Role Phone Chris Garcia MD Primary Care Provider + [phone] Sydni Arroyo NP Primary Care Provider [phone] Chris Garcia MD Primary Care Provider + [phone] Concetta Roman MA Unavailable [phone] Encounter Details Date Type Department Care Team (Late st Contact Info) Description 10/12/2020 Telephone [facility] [address] [place] [id number] Li Wilder, RT Social History Tobacco Use [...] on file Legal Sex Female 6:52 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 Gender Identity Not on file Sexual Orientation Not on file documented as of this encounter Plan of Treatment Not on file documented as of this encounter Visit Diagnoses Not on filedocumented in this encounter Additional Health Concerns Infection Onset Date Last Indicated Resolved Time COVID: Suspected 05/01/2022 05/01/2022 05/01/2022 10:33 AM PAINT STOCKMAN documented as of this encounter Care Teams [employer] Worker Relationship Specialty Start Date End Date Chris Garcia MD [address] [place] [address] PCP - General 06/25/19 10/14/20 Sydni Arroyo NP [address] [place] [address] PCP - General Family Medicine 10/15/20 11/14/20 Chris Garcia MD [address] [place] [address] PCP - General Family Medicine 11/15/20 Concetta Roman MA [address] [place] [address] [place] [address] A[employer] Care Roller Printer 02/05/24 02/06/24 documented as of this encounter
--- OUTSIDE RECORDS SUMMARY | 2024-07-22 17:56 | XMS_ITS | Clinical Summary ---
Author Organization [facility] A Address [address] [place] [address] Care Team Providers Care Manufacturing Tech Name Role Phone Chris Garcia MD Primary Care Provider [phone] Allergies Active Allergy Reactions Criticality Noted Date [...] 03/13/2024 Assessment & Plan (03/13/2024 3:35 PM MATERIAL CONTROL MANAGER): Kidney function is decreasing will continue to monitor. Discussed avoids salt, NSAIDs, and proper hydration. Sydnie is not interested in seeing Nephrology at this time. We will continue to monitor closely. Chronic right shoulder pain 03/13/2024 Assessment & Plan (03/13/2024 4:34 PM MATERIAL CONTROL MANAGER): Pain not well controlled on Tramadol. Patient saw ortho and was given an injection which did not help. [place] sent in for pain relief to see if that will work better than Tramadol BMI 32.0-32.9,adult 03/13/2024 Assessment & Plan (03/13/2024 3:58 PM MATERIAL CONTROL MANAGER): Weight appropriate for patient. Hyponatremia 02/05/2024 Assessment & Plan (02/05/2024 1:35 PM CDT): HCTZ discontinued. Dizziness 02/01/2024 Assessment & Plan (02/13/2024 6:41 AM CDT): Dizziness has resolved; no falls or safety concerns. Headache has resolved. Mild recurrent major depression 03/08/2023 Assessment & Plan (03/08/2023 3:24 PM MATERIAL CONTROL MANAGER): PHQ = 2 Patient reports moods are stable overall, some bad days but has more good days than bad days. Sleeping well. Notable improvement in moods with duloxetine. Angina pectoris, unspecified 02/28/2022 Assessment & Plan (03/08/2023 3:28 PM MATERIAL CONTROL MANAGER): Denies any recent chest pain or need for nitro Blood pressure well controlled. Assessment & Plan (02/28/2022 4:10 PM CDT): Nitro refilled. Physical exam, annual 02/28/2022 Assessment & Plan (03/08/2023 3:11 PM MATERIAL CONTROL MANAGER): Preventative exam. Reviewed recommended preventative screenings and [...] healthier, we can set up appointment with cable television program director/burial needs salesperson. 3. Have an active lifestyle, strive for [...] 11/22/2021 Assessment & Plan (03/08/2023 3:26 PM MATERIAL CONTROL MANAGER): Stable; patient is taking medications as prescribed. [...] so. Assessment & Plan (06/16/2022 2:54 PM MATERIAL CONTROL MANAGER): Patient with chronic pain, taking medications as [...] down. Assessment & Plan (04/01/2021 2:02 PM MATERIAL CONTROL MANAGER): Never started fluoxetine as papers with medication [...] (01/04/2021): Added automatically from request for surgery [id number] Dyslipidemia associated with type 2 diabetes malcolm [...] box. Assessment & Plan (06/16/2022 2:50 PM MATERIAL CONTROL MANAGER): Continues on pravastatin 40 mg daily as prescribed. Reviewed labs today with patient. Assessment & Plan (02/28/2022 4:08 PM CDT): 07/08/20 FB=415 HDL=52 TG=80 LDL=55 TC/HDL=2.0 06/30/21 BC=623 HDL=40 JQ=874 DCN=334 TC/HDL=6 OITNGL=920 11/22/21 ID=836 HDL=42 PE=707 EWG=256 TC/HDL=6 TXDMLI=107 Pravastatin 40mg daily. Some metallic taste per [...] & Plan (11/22/2021 6:42 PM CDT): 07/08/20 HX=983 HDL=52 TG=80 LDL=55 TC/HDL=2.0 06/30/21 LL=085 HDL=40 XL=295 EZW=774 TC/HDL=6 TQEROI=695 Still does not want to take statins. Reviewed that total cholesterol and LDL levels elevated; require statins especially with diabetes diagnosis. Reviewed diet necessary to help decrease total cholesterol and LDL. States that she eats red meat at least 3 times a week and does not want to decrease that. Reviewed diet/exercise recommendations. Assessment & Plan (08/03/2021 7:13 PM CDT): ZM=250 HDL=40 ZD=104 SVF=530 TC/HDL=6 LZROMZ=637 Does not want to take statins. Reviewed [...] recommendations. Assessment & Plan (07/01/2021 10:50 PM MATERIAL CONTROL MANAGER): Has been off of atorvastatin since 05/31/21. [...] & Plan (02/04/2021 6:07 PM CDT): 06/25/19 WO=569 HDL=49 CX=885 FWY=039 TC/HDL=5.0 07/08/20 KW=797 HDL=52 TG=80 LDL=55 TC/HDL=2.0 Atorvastatin 20mg daily. Patient should focus on limiting bad fats in the diet and using exercise as a way to improve the lipid status. Secondary prevention. Reviewed medications. Denies any statin Ses. Reviewed diet/exercise recommendations. Reviewed red flags. Assessment & Plan (10/08/2020 4:03 PM CDT): 10/01/15 WZ=755 HDL=43 TG= 246 LDL=81 06/25/19 TC246 HDL=49 XP=143 JZX=493 TC/HDL=5.0 07/08/20 TC123 HDL=52 TG=80 LDL= 55 TC/HDL=2 Atorvastatin 20mg daily. Denies any SE/myalgias Reviewed previous labs. Will check labs today and make adjustments to medications as needed. Secondary prevention Discussed focusing on limiting bad fats in the diet and using exercise as a way to improve cholesterol. Reviewed exercise recommendations and red flags warranting further evaluation. Assessment & Plan (07/08/2020 3:29 PM MATERIAL CONTROL MANAGER): 10/01/15 PL=133 HDL=43 GW=821 LDL=81 06/25/19 GN=155 HDL=49 SB=684 ESK=406 TC/HDL=5.0 Atorvastatin 20mg daily. Denies myalgias. We [...] 07/08/2020 Assessment & Plan (03/13/2024 3:36 PM MATERIAL CONTROL MANAGER): Advised that Amlodipine could be causing lower leg swelling. Patient states she is wanting to try to stop the medication and see if that will help her swelling without impacting her HTN. Assessment & Plan (02/05/2024 1:36 PM CDT): BP stable; now taking losartan 100 mg daily and amlodipine 10 mg daily. Assessment & Plan (03/08/2023 3:23 PM MATERIAL CONTROL MANAGER): Blood pressure is well controlled, continue losartan-hydrochlorothiazide 125 mg tablet daily Assessment & Plan (12/14/2022 6:22 PM CDT): Blood pressure is well controlled, no changes in current medication. Assessment & Plan (06/16/2022 2:52 PM MATERIAL CONTROL MANAGER): BP elevated today, patient reports she has [...] 08/02/21. Assessment & Plan (07/01/2021 10:55 PM MATERIAL CONTROL MANAGER): Increase losartan/hctz to 100/25mg. Continues on metoprolol. [...] results. Assessment & Plan (07/08/2020 2:27 PM MATERIAL CONTROL MANAGER): Changed from lisinopril/hczt to losartan/hctz d/t cough. [...] 07/08/2020 Assessment & Plan (07/01/2021 10:58 PM MATERIAL CONTROL MANAGER): Sparingly uses tramadol. Refilled today. Takes tramadol [...] cream Assessment & Plan (07/08/2020 3:19 PM MATERIAL CONTROL MANAGER): Has tramadol at home that she uses [...] protection. Assessment & Plan (07/01/2021 10:48 PM MATERIAL CONTROL MANAGER): Discussed and the patient refuses immunization today. Educated regarding the need to vaccinate for personal protection. Assessment & Plan (04/05/2021 7:12 PM MATERIAL CONTROL MANAGER): Discussed and the patient refuses immunization today. Educated regarding the need to vaccinate for personal protection Assessment & Plan (02/04/2021 6:10 PM CDT): Discussed and the patient refuses immunization today. Educated regarding the need to vaccinate for personal protection. Assessment & Plan (07/08/2020 2:27 PM MATERIAL CONTROL MANAGER): Discussed and the patient refuses immunization today. Educated regarding the need to vaccinate for personal protection. Assessment & Plan (06/25/2019 9:21 AM MATERIAL CONTROL MANAGER): She refuses. Refused influenza vaccine 06/25/2019 Assessment & Plan (02/28/2022 4:05 PM CDT): Discussed and the patient refuses immunization today. Educated regarding the need to vaccinate for personal protection and to limit the viruses in the community to protect those most vulnerable. Assessment & Plan (07/01/2021 10:48 PM MATERIAL CONTROL MANAGER): Discussed and the patient refuses immunization today. Educated regarding the need to vaccinate for personal protection and to limit the viruses in the community to protect those most vulnerable. Assessment & Plan (04/05/2021 7:12 PM MATERIAL CONTROL MANAGER): Discussed and the patient refuses immunization today. [...] vulnerable. Assessment & Plan (07/08/2020 2:27 PM MATERIAL CONTROL MANAGER): Discussed and the patient refuses immunization today. Educated regarding the need to vaccinate for personal protection and to limit the viruses in the community to protect those most vulnerable. Assessment & Plan (06/25/2019 9:21 AM MATERIAL CONTROL MANAGER): She refuses. Idiopathic chronic gout of multiple [...] time. Assessment & Plan (06/16/2022 2:56 PM MATERIAL CONTROL MANAGER): Lab Results Component Value Date HGBA1C 7.6 [...] intake. Assessment & Plan (07/01/2021 10:47 PM MATERIAL CONTROL MANAGER): A1c, micoralbumin & cmp ordered. Last A1c's: [...] evaluation. Assessment & Plan (07/08/2020 3:31 PM MATERIAL CONTROL MANAGER): Lab Results Component Value Date HGBA1C 7.6 [...] evaluation. Assessment & Plan (03/11/2020 2:05 PM MATERIAL CONTROL MANAGER): Diagnosed few years ago Started treatment in [...] month Assessment & Plan (07/02/2019 1:49 PM MATERIAL CONTROL MANAGER): She states blood sugars have been stable at home. Will continue current prescribed therapy. She states she has been colon Endocrinology to schedule appointment. She has also scheduling her eye exam appointment. Obstructive sleep apnea syndrome 05/14/2014 Overview (08/04/2016): ROSA M Assessment & Plan (07/02/2019 1:36 PM MATERIAL CONTROL MANAGER): She states she has been sleeping well this past week. Will continue current prescribed therapy. Assessment & Plan (06/25/2019 9:21 AM MATERIAL CONTROL MANAGER): She does not wish to have a sleep study at this time. Subclinical hypothyroidism 09/27/2013 Overview (08/04/2016): Subclinical hypothyroidism Assessment & Plan (07/08/2020 3:30 PM MATERIAL CONTROL MANAGER): TSH reflex T4 ordered; will contact w/results [...] 07/16/2021 Assessment & Plan (07/01/2021 11:01 PM MATERIAL CONTROL MANAGER): Reviewed need to lose weight, reviewed health benefits. Reviewed recommendations for daily intake & activity 20-30 minutes/day. Discussed healthy diet and importance of regular physical activity. Class 1 obesity due to exces s calories without serious comorbidity with body mass index (BMI) of 32.0 to 32.9 in adult 04/01/202106/2021 Assessment & Plan (04/01/2021 2:03 PM MATERIAL CONTROL MANAGER): Reviewed need to lose weight, reviewed health benefits. Reviewed recommendations for daily intake & activity 20-30 minutes/day. Discussed healthy diet and importance of regular physical activity. CKD stage 3 due to type 2 diabetes mellitus 02/04/2021 03/13/2024 Assessment & Plan (03/08/2023 3:23 PM MATERIAL CONTROL MANAGER): Stable continues to avoid NSAIDs. Diabetes well controlled. Encouraged patient to schedule eye exam at her convenience. Assessment & Plan (12/14/2022 6:21 PM CDT): Stable, repeat labs ordered today. Assessment & Plan (09/14/2022 2:48 PM CDT): Again reviewed need to better control diabetes. Stable. Assessment & Plan (06/16/2022 2:49 PM MATERIAL CONTROL MANAGER): Estimated Creatinine Clearance: 30.7 mL/min (A) (by [...] CM Assessment & Plan (07/01/2021 11:01 PM MATERIAL CONTROL MANAGER): Component Ref Range & Units 11 mo [...] 11/22/2021 Assessment & Plan (04/05/2021 7:12 PM MATERIAL CONTROL MANAGER): Never started fluoxetine. Feels that depression has [...] exercise. Assessment & Plan (03/08/2023 3:23 PM MATERIAL CONTROL MANAGER): Stable, continues with active lifestyle. Assessment & Plan (09/14/2022 2:49 PM CDT): Patient enjoying more activities, dancing and getting our of the house. Assessment & Plan (06/16/2022 2:49 PM MATERIAL CONTROL MANAGER): Discussed healthy diet and importance of regular [...] dog. Assessment & Plan (07/08/2020 2:26 PM MATERIAL CONTROL MANAGER): Reviewed need to lose weight, reviewed health benefits. Reviewed recommendations for daily intake & activity 20-30 minutes/day. Discussed healthy diet and importance of regular physical activity. Encounter for screening colonoscopy 07/02/2019 07/08/2020 Overview (07/02/2019): Added automatically from request for surgery [id number] Diarrhea 07/02/2019 07/08/2020 Assessment & Plan (07/02/2019 1:40 PM MATERIAL CONTROL MANAGER): Advised on need for hydration and bulking up stool Neck pain 07/02/2019 10/08/2020 Assessment & Plan (07/02/2019 1:48 PM MATERIAL CONTROL MANAGER): Will await response to physical therapy. Screening for malignant neoplasm of colon 06/25/2019 07/08/2020 Dyslipidemia 11/23/2016 07/08/2020 Assessment & Plan (10/06/2019 1:54 PM CDT): Will continue statin. Will plan on new labs in 3 months. Secondary hyperparathyroidism 11/23/2016 10/08/2020 Hypertension 10/01/2015 07/08/2020 Overview (08/04/2016): HTN (hypertension) Assessment & Plan (03/11/2020 2:07 PM MATERIAL CONTROL MANAGER): Complicated with nephropathy Controlled with Lisinopril Plan: Low salt diet. Continue medication Improve diabetes control. Assessment & Plan (12/08/2019 4:10 PM CDT): Complicated with nephropathy Controlled with Lisinopril Plan: Informed patient about her kidney statu Continue medication Improve diabetes control. Assessment & Plan (10/06/2019 1:55 PM CDT): Stable today. Assessment & Plan (07/02/2019 1:37 PM MATERIAL CONTROL MANAGER): She has responded well to the blood pressure medication. Impaired fasting glucose 09/18/201302/2021 Overview (08/04/2016): Impaired fasting glucose Stage 3 chronic kidney disease 09/13/2013 08/03/2021 Overview (2016): Chronic kidney failure Encounters Date Type Department Care Team Description 06/19/2024 Orders Only [facility] [place] [address] [place] [id number] Chris Garcia MD 06/12/2024 Telephone [facility] Diabetes Endocrine Care at [address] [phone] Arthur Santiago DO 06/02/2024 2:30 PM MATERIAL CONTROL MANAGER Office Visit [facility] Diabetes [facility] Care at [address] [address] Arthur Santiago, DO Type 2 diabetes mellitus [...] on file Legal Sex Female 6:52 PM MATERIAL CONTROL MANAGER Gender Identity Not on file Sexual Orientation Not on file Obstetrics History Last Filed Vital Signs Vital Sign Reading Time Taken Comments Blood Pressure 142/78 06/02/2024 2:28 PM MATERIAL CONTROL MANAGER Pulse 83 06/02/2024 2:20 PM MATERIAL CONTROL MANAGER Temperature 36.8 C (98.2 F) 02/05/2024 1:01 PM CDT Respiratory Rate 18 03/13/2024 3:03 PM MATERIAL CONTROL MANAGER Oxygen Saturation 97% 03/13/2024 3:03 PM MATERIAL CONTROL MANAGER Inhaled Oxygen Concentration - - Weight 78.1 kg (172 lb 3.2 oz) 06/02/2024 2:20 P M MATERIAL CONTROL MANAGER Height 157.5 cm (5' 2.01 ) 06/02/2024 2:20 PM CS T Body Mass Index 31.49 06/02/2024 2:20 PM MATERIAL CONTROL MANAGER Plan of Treatment Health Maintenance Due Date [...] POCT HEMOGLOBIN A1C Routine 06/02/2024 2:33 PM MATERIAL CONTROL MANAGER Type 2 diabetes mellitus with hyperglycemia, without long-term current use of insulin (HCC) ALBUMIN CREATININE RATIO, URINE Routine 03/13/2024 4:02 PM MATERIAL CONTROL MANAGER Type 2 diabetes mellitus with stage 3a [...] * POCT hemoglobin A1c (06/02/2024 2:33 PM MATERIAL CONTROL MANAGER) Hemoglobin A1C, POC 7.5 4.0 - 5.6 % Blood 06/02/2024 2:33 PM MATERIAL CONTROL MANAGER Arthur Santiago DO POINT OF CARE TEST ORDERABL ES Final Result * (ABNORMAL) Albumin Creatinine Ratio, Urine (03/13/2024 4:02 PM MATERIAL CONTROL MANAGER) Albumin Ur 25.8 mg/L Comment: Interpretive Data No reference range established. Current interpretive data was last revised 2018. Testing performed by: [facility], [address] [place] [address]., [id number] Creatinine Ur 20.1 mg/dL ABRAM LICONA (JIM) Comment: Interpretive Data No reference range established. Current interpretive data was last revised 2018. Testing performed by: [facility], [address] [place] [address]., [id number] Albumin Creatinine Ratio, Ur 128(H) 1 - 29 mg/g ABRAM LICONA (JIM) Comment:Testing performed by : [address] [address] Urine 03/13/2024 4:02 PM MATERIAL CONTROL MANAGER 03/13/2024 10:15 PM MATERIAL CONTROL MANAGER Betty Perez [employer] MOLDER LAB URINE ORDERABLES Final Re sult ABRAM LICONA (JIM) 1 [facility] Department [place] [address] * Retina[employer]ue Scanner - OU [...] BLOOD ORDERAB LES Final Result ABRAM [facility] [place] 1 [facility] Department of Laboratories [place], [place] [id number] * (ABNORMAL) Lipid panel (01/23/2024 3:51 PM [...] last revised on 2017. Testing performed by: [facility], [address] [place] [address]., [address] Triglycerides 230(H) <=149 mg/dL ABRAM LICONA (JIM) [...] last revised on 2017. Testing performed by: [facility], [address] [place] [address]., [address] HDL 51 >=40 mg/dL ABRAM LICONA (JIM) [...] last revised on 2017. Testing performed by: [facility], [address] [place] [address]., [address] LDL, calculated 103 <=129 mg/dL ABRAM LICONA [...] last revised on 2023. Testing performed by: [address] [address] Non-HDL Cholesterol 142 mg/dL ABRAM LICONA (JIM) [...] last revised on 2017. Testing performed by: [facility], [address] [place] [address]., [id number] Chol/HDL ratio 4 WILEY LICONA (JIM) Comment:Testing performed by : [address] [id number] Blood 01/23/2024 3:51 PM CDT 01/23/2024 7:49 PM CDT us Chris Garcia MD LAB BLOOD ORDERABLES Tarah l Result ABRAM LICONA (IJM) 1 [facility] Department of Laboratories [place], [place] [id number] * COLONOSCOPY (01/20/2021 1:05 PM CDT) Anatomical Region Laterality Modality Other Narrative Procedure Note Zuhair Muñoz MD - 01/20/2021 1:05 PM CDT [facility] Patient Name: Sydnie Persaud Procedure Date: 01/20/2021 1:05 PM Date of : 1945 Admit Type: Outpatient Age: 75 Gender: Female Attending MD: Zuhair Muñoz M.D. Room: COUNT INCLUDES THE [facility] ENDOSCOPY ROOM 2 Note Status: Finalized [...] scope was passed under direct vision. TheColonoscope [id number] was introduced through the anus and advanced [...] 1:05 PM Procedure Code(s): --- Professional --- 58537, Colonoscopy, flexible; diagnostic, including collection of specimen(s) by brushing or washing, when performed (separateprocedure) Diagnosis Code(s): --- Professional --- K57.30, Diverticulosis of large intestine without perforation orabscess without bleeding R19.5, Other fecal abnormalities K64.9, Unspecified hemorrhoids CPT copyright 2019 [employer]. All rights reserved. The codes documented in this report are preliminary and upon denitrator operator reviewmay be revised to meet current compliance requirements. Recognized by the [employer] for promoting quality [...] female with given history of asymptomatic screening. It Disaster Recovery Manager/Model: [employer] SL (S/N [id number]) CLINICAL INFORMATION: Current height: 62 inches Maximum [...] by Vlad Nichols M.D. MD: Report ID: [id number] Reading Location: [place] [address] Procedure Note Vlad Nichols MD - 10/13/2020 EXAM DESCRIPTION: DEXA AXIAL SKELETON BONE DENSITY 1 OR MORE SITES REASON FOR STUDY: 75 year old female with given history of asymptomatic screening. It Disaster Recovery Manager/Model: [employer] (S/N [id number]) CLINICAL INFORMATION: Current height: 62 inches Maximum [...] by Vlad Nichols M.D. MD: Report ID: [id number] Reading Location: [place] [address] Sydni Arroyo [employer] MOLDER IMG DXA PROCEDURES Final Re sult * DIABETES FOOT EXAM (11/23/2016) Diabetic Foot Exam Normal Historical Provider HEALTH MAINTENANCE Final Result from Last 3 Months or Most Recently Relevant to Health Maintenance Insurance [facility] MEDICARE ADVANTAGE Advance Directives For more information, please contact: [phone] * Full Code (Latest Code Status on File) Date Activated Date Inactivated Comments 02/01/2024 10:11 AM 02/04/2024 4:19 PM * Full Code Date Activated Date Inactivated Comments 01/20/2021 12:21 PM 01/20/2021 6:45 PM Care Teams Manufacturing Tech Relationship Specialty Start Date End Date Chris Garcia MD [address] [place] [address] PCP - General Family Medicine 11/15/20
--- OUTSIDE RECORDS SUMMARY | 2024-07-22 17:56 | XMS_ITS | Referral Summary ---
Author Organization [facility] A Address [address] [place] [address] Care Team Providers Care Profile Trimmer Name Role Phone Chris Garcia MD Primary Care Provider [phone] Encounters Date Type Department Care Team Description 06/19/2024 Orders Only [facility] Health Information Management [address] [place] [id number] Chris Garcia MD 06/12/2024 Telephone [facility] Diabetes Endocrine Care at [address] [address] Arthur Santiago DO 06/02/2024 2:30 PM POLICY CANCELLATION CLERK Office Visit [facility] Diabetes Endocrine Care at [address] [address] Arthur Santiago DO Type 2 [...] or as directed for monitoring of diabetes. [facility] Contour Glucose Meter - DX: E11.65 1 [...] 03/13/2024 Assessment & Plan (03/13/2024 3:35 PM POLICY CANCELLATION CLERK): Kidney function is decreasing will continue to monitor. Discussed avoids salt, NSAIDs, and proper hydration. Sydnie is not interested in seeing Nephrology at this time. We will continue to monitor closely. Chronic right shoulder pain 03/13/2024 Assessment & Plan (03/13/2024 4:34 PM POLICY CANCELLATION CLERK): Pain not well controlled on Tramadol. Patient saw ortho and was given an injection which did not help. Bertram sent in for pain relief to see if that will work better than Tramadol BMI 32.0-32.9,adult 03/13/2024 Assessment & Plan (03/13/2024 3:58 PM POLICY CANCELLATION CLERK): Weight appropriate for patient. Hyponatremia 02/05/2024 Assessment & Plan (02/05/2024 1:35 PM CDT): HCTZ discontinued. Dizziness 02/01/2024 Assessment & Plan (02/13/2024 6:41 AM CDT): Dizziness has resolved; no falls or safety concerns. Headache has resolved. Mild recurrent major depression 03/08/2023 Assessment & Plan (03/08/2023 3:24 PM POLICY CANCELLATION CLERK): PHQ = 2 Patient reports moods are stable overall, some bad days but has more good days than bad days. Sleeping well. Notable improvement in moods with duloxetine. Angina pectoris, unspecified 02/28/2022 Assessment & Plan (03/08/2023 3:28 PM POLICY CANCELLATION CLERK): Denies any recent chest pain or need for nitro Blood pressure well controlled. Assessment & Plan (02/28/2022 4:10 PM CDT): Nitro refilled. Physical exam, annual 02/28/2022 Assessment & Plan (03/08/2023 3:11 PM POLICY CANCELLATION CLERK): Preventative exam. Reviewed recommended preventative screenings and [...] healthier, we can set up appointment with nascar racer/healthcare administrative assistant. 3. Have an active lifestyle, strive for [...] 11/22/2021 Assessment & Plan (03/08/2023 3:26 PM POLICY CANCELLATION CLERK): Stable; patient is taking medications as prescribed. [...] so. Assessment & Plan (06/16/2022 2:54 PM POLICY CANCELLATION CLERK): Patient with chronic pain, taking medications as [...] down. Assessment & Plan (04/01/2021 2:02 PM POLICY CANCELLATION CLERK): Never started fluoxetine as papers with medication [...] (01/04/2021): Added automatically from request for surgery [id number] Dyslipidemia associated with type 2 diabetes malcolm [...] box. Assessment & Plan (06/16/2022 2:50 PM POLICY CANCELLATION CLERK): Continues on pravastatin 40 mg daily as prescribed. Reviewed labs today with patient. Assessment & Plan (02/28/2022 4:08 PM CDT): 07/08/20 VZ=911 HDL=52 TG=80 LDL=55 TC/HDL=2.0 06/30/21 XQ=385 HDL=40 RX=463 MEI=316 TC/HDL=6 UWILXB=931 11/22/21 AM=192 HDL=42 WN=542 SOG=535 TC/HDL=6 JAYXDD=151 Pravastatin 40mg daily. Some metallic taste per [...] & Plan (11/22/2021 6:42 PM CDT): 07/08/20 GL=374 HDL=52 TG=80 LDL=55 TC/HDL=2.0 06/30/21 QO=064 HDL=40 KR=750 IIX=288 TC/HDL=6 DQDWHX=927 Still does not want to take statins. Reviewed that total cholesterol and LDL levels elevated; require statins especially with diabetes diagnosis. Reviewed diet necessary to help decrease total cholesterol and LDL. States that she eats red meat at least 3 times a week and does not want to decrease that. Reviewed diet/exercise recommendations. Assessment & Plan (08/03/2021 7:13 PM CDT): NQ=185 HDL=40 MI=629 EUS=486 TC/HDL=6 BFMBDM=218 Does not want to take statins. Reviewed [...] recommendations. Assessment & Plan (07/01/2021 10:50 PM POLICY CANCELLATION CLERK): Has been off of atorvastatin since 05/31/21. [...] & Plan (02/04/2021 6:07 PM CDT): 06/25/19 LV=983 HDL=49 GI=674 LKJ=841 TC/HDL=5.0 07/08/20 WN=178 HDL=52 TG=80 LDL=55 TC/HDL=2.0 Atorvastatin 20mg daily. Patient should focus on limiting bad fats in the diet and using exercise as a way to improve the lipid status. Secondary prevention. Reviewed medications. Denies any statin Ses. Reviewed diet/exercise recommendations. Reviewed red flags. Assessment & Plan (10/08/2020 4:03 PM CDT): 10/01/15 GO=148 HDL=43 TG= 246 LDL=81 06/25/19 TC246 HDL=49 HY=762 RQX=084 TC/HDL=5.0 07/08/20 TC123 HDL=52 TG=80 LDL= 55 TC/HDL=2 Atorvastatin 20mg daily. Denies any SE/myalgias Reviewed previous labs. Will check labs today and make adjustments to medications as needed. Secondary prevention Discussed focusing on limiting bad fats in the diet and using exercise as a way to improve cholesterol. Reviewed exercise recommendations and red flags warranting further evaluation. Assessment & Plan (07/08/2020 3:29 PM POLICY CANCELLATION CLERK): 10/01/15 BH=304 HDL=43 XV=101 LDL=81 06/25/19 QV=362 HDL=49 SR=203 IKN=338 TC/HDL=5.0 Atorvastatin 20mg daily. Denies myalgias. We [...] 07/08/2020 Assessment & Plan (03/13/2024 3:36 PM POLICY CANCELLATION CLERK): Advised that Amlodipine could be causing lower leg swelling. Patient states she is wanting to try to stop the medication and see if that will help her swelling without impacting her HTN. Assessment & Plan (02/05/2024 1:36 PM CDT): BP stable; now taking losartan 100 mg daily and amlodipine 10 mg daily. Assessment & Plan (03/08/2023 3:23 PM POLICY CANCELLATION CLERK): Blood pressure is well controlled, continue losartan-hydrochlorothiazide 125 mg tablet daily Assessment & Plan (12/14/2022 6:22 PM CDT): Blood pressure is well controlled, no changes in current medication. Assessment & Plan (06/16/2022 2:52 PM POLICY CANCELLATION CLERK): BP elevated today, patient reports she has [...] 08/02/21. Assessment & Plan (07/01/2021 10:55 PM POLICY CANCELLATION CLERK): Increase losartan/hctz to 100/25mg. Continues on metoprolol. [...] results. Assessment & Plan (07/08/2020 2:27 PM POLICY CANCELLATION CLERK): Changed from lisinopril/hczt to losartan/hctz d/t cough. [...] 07/08/2020 Assessment & Plan (07/01/2021 10:58 PM POLICY CANCELLATION CLERK): Sparingly uses tramadol. Refilled today. Takes tramadol [...] cream Assessment & Plan (07/08/2020 3:19 PM POLICY CANCELLATION CLERK): Has tramadol at home that she uses [...] protection. Assessment & Plan (07/01/2021 10:48 PM POLICY CANCELLATION CLERK): Discussed and the patient refuses immunization today. Educated regarding the need to vaccinate for personal protection. Assessment & Plan (04/05/2021 7:12 PM POLICY CANCELLATION CLERK): Discussed and the patient refuses immunization today. Educated regarding the need to vaccinate for personal protection Assessment & Plan (02/04/2021 6:10 PM CDT): Discussed and the patient refuses immunization today. Educated regarding the need to vaccinate for personal protection. Assessment & Plan (07/08/2020 2:27 PM POLICY CANCELLATION CLERK): Discussed and the patient refuses immunization today. Educated regarding the need to vaccinate for personal protection. Assessment & Plan (06/25/2019 9:21 AM POLICY CANCELLATION CLERK): She refuses. Refused influenza vaccine 06/25/2019 Assessment & Plan (02/28/2022 4:05 PM CDT): Discussed and the patient refuses immunization today. Educated regarding the need to vaccinate for personal protection and to limit the viruses in the community to protect those most vulnerable. Assessment & Plan (07/01/2021 10:48 PM POLICY CANCELLATION CLERK): Discussed and the patient refuses immunization today. Educated regarding the need to vaccinate for personal protection and to limit the viruses in the community to protect those most vulnerable. Assessment & Plan (04/05/2021 7:12 PM POLICY CANCELLATION CLERK): Discussed and the patient refuses immunization today. [...] vulnerable. Assessment & Plan (07/08/2020 2:27 PM POLICY CANCELLATION CLERK): Discussed and the patient refuses immunization today. Educated regarding the need to vaccinate for personal protection and to limit the viruses in the community to protect those most vulnerable. Assessment & Plan (06/25/2019 9:21 AM POLICY CANCELLATION CLERK): She refuses. Idiopathic chronic gout of multiple [...] time. Assessment & Plan (06/16/2022 2:56 PM POLICY CANCELLATION CLERK): Lab Results Component Value Date HGBA1C 7.6 [...] intake. Assessment & Plan (07/01/2021 10:47 PM POLICY CANCELLATION CLERK): A1c, micoralbumin & cmp ordered. Last A1c's: [...] evaluation. Assessment & Plan (07/08/2020 3:31 PM POLICY CANCELLATION CLERK): Lab Results Component Value Date HGBA1C 7.6 [...] evaluation. Assessment & Plan (03/11/2020 2:05 PM POLICY CANCELLATION CLERK): Diagnosed few years ago Started treatment in [...] month Assessment & Plan (07/02/2019 1:49 PM POLICY CANCELLATION CLERK): She states blood sugars have been stable at home. Will continue current prescribed therapy. She states she has been colon Endocrinology to schedule appointment. She has also scheduling her eye exam appointment. Obstructive sleep apnea syndrome 05/14/2014 Overview (08/04/2016): ROSA M Assessment & Plan (07/02/2019 1:36 PM POLICY CANCELLATION CLERK): She states she has been sleeping well this past week. Will continue current prescribed therapy. Assessment & Plan (06/25/2019 9:21 AM POLICY CANCELLATION CLERK): She does not wish to have a sleep study at this time. Subclinical hypothyroidism 09/27/2013 Overview (08/04/2016): Subclinical hypothyroidism Assessment & Plan (07/08/2020 3:30 PM POLICY CANCELLATION CLERK): TSH reflex T4 ordered; will contact w/results [...] 07/16/2021 Assessment & Plan (07/01/2021 11:01 PM POLICY CANCELLATION CLERK): Reviewed need to lose weight, reviewed health benefits. Reviewed recommendations for daily intake & activity 20-30 minutes/day. Discussed healthy diet and importance of regular physical activity. Class 1 obesity due to exces s calories without serious comorbidity with body mass index (BMI) of 32.0 to 32.9 in adult 04/01/202106/2021 Assessment & Plan (04/01/2021 2:03 PM POLICY CANCELLATION CLERK): Reviewed need to lose weight, reviewed health benefits. Reviewed recommendations for daily intake & activity 20-30 minutes/day. Discussed healthy diet and importance of regular physical activity. CKD stage 3 due to type 2 diabetes mellitus 02/04/2021 03/13/2024 Assessment & Plan (03/08/2023 3:23 PM POLICY CANCELLATION CLERK): Stable continues to avoid NSAIDs. Diabetes well controlled. Encouraged patient to schedule eye exam at her convenience. Assessment & Plan (12/14/2022 6:21 PM CDT): Stable, repeat labs ordered today. Assessment & Plan (09/14/2022 2:48 PM CDT): Again reviewed need to better control diabetes. Stable. Assessment & Plan (06/16/2022 2:49 PM POLICY CANCELLATION CLERK): Estimated Creatinine Clearance: 30.7 mL/min (A) (by [...] CM Assessment & Plan (07/01/2021 11:01 PM POLICY CANCELLATION CLERK): Component Ref Range & Units 11 mo [...] 11/22/2021 Assessment & Plan (04/05/2021 7:12 PM POLICY CANCELLATION CLERK): Never started fluoxetine. Feels that depression has [...] exercise. Assessment & Plan (03/08/2023 3:23 PM POLICY CANCELLATION CLERK): Stable, continues with active lifestyle. Assessment & Plan (09/14/2022 2:49 PM CDT): Patient enjoying more activities, dancing and getting our of the house. Assessment & Plan (06/16/2022 2:49 PM POLICY CANCELLATION CLERK): Discussed healthy diet and importance of regular [...] dog. Assessment & Plan (07/08/2020 2:26 PM POLICY CANCELLATION CLERK): Reviewed need to lose weight, reviewed health benefits. Reviewed recommendations for daily intake & activity 20-30 minutes/day. Discussed healthy diet and importance of regular physical activity. Encounter for screening colonoscopy 07/02/2019 07/08/2020 Overview (07/02/2019): Added automatically from request for surgery [id number] Diarrhea 07/02/2019 07/08/2020 Assessment & Plan (07/02/2019 1:40 PM POLICY CANCELLATION CLERK): Advised on need for hydration and bulking up stool Neck pain 07/02/2019 10/08/2020 Assessment & Plan (07/02/2019 1:48 PM POLICY CANCELLATION CLERK): Will await response to physical therapy. Screening for malignant neoplasm of colon 06/25/2019 07/08/2020 Dyslipidemia 11/23/2016 07/08/2020 Assessment & Plan (10/06/2019 1:54 PM CDT): Will continue statin. Will plan on new labs in 3 months. Secondary hyperparathyroidism 11/23/2016 10/08/2020 Hypertension 10/01/2015 07/08/2020 Overview (08/04/2016): HTN (hypertension) Assessment & Plan (03/11/2020 2:07 PM POLICY CANCELLATION CLERK): Complicated with nephropathy Controlled with Lisinopril Plan: Low salt diet. Continue medication Improve diabetes control. Assessment & Plan (12/08/2019 4:10 PM CDT): Complicated with nephropathy Controlled with Lisinopril Plan: Informed patient about her kidney statu Continue medication Improve diabetes control. Assessment & Plan (10/06/2019 1:55 PM CDT): Stable today. Assessment & Plan (07/02/2019 1:37 PM POLICY CANCELLATION CLERK): She has responded well to the blood [...] on file Legal Sex Female 6:52 PM POLICY CANCELLATION CLERK Gender Identity Not on file Sexual Orientation Not on file Last Filed Vital Signs Vital Sign Reading Time Taken Comments Blood Pressure 142/78 06/02/2024 2:28 PM POLICY CANCELLATION CLERK Pulse 83 06/02/2024 2:20 PM POLICY CANCELLATION CLERK Temperature 36.8 C (98.2 F) 02/05/2024 1:01 PM CDT Respiratory Rate 18 03/13/2024 3:03 PM POLICY CANCELLATION CLERK Oxygen Saturation 97% 03/13/2024 3:03 PM POLICY CANCELLATION CLERK Inhaled Oxygen Concentration - - Weight 78.1 kg (172 lb 3.2 oz) 06/02/2024 2:20 P M POLICY CANCELLATION CLERK Height 157.5 cm (5' 2.01 ) 06/02/2024 2:20 PM CS T Body Mass Index 31.49 06/02/2024 2:20 PM POLICY CANCELLATION CLERK Plan of Treatment Not on file Procedures Procedure Name Priority Date/Time Associated Diagnosis Comments SCAN - RADIOLOGY/IMAGING 06/19/2024 POCT HEMOGLOBIN A1C Routine 06/02/2024 2:33 PM POLICY CANCELLATION CLERK Type 2 diabetes mellitus with hyperglycemia, without long-term current use of insulin (HCC) ALBUMIN CREATININE RATIO, URINE Routine 03/13/2024 4:02 PM POLICY CANCELLATION CLERK Type 2 diabetes mellitus with stage 3a [...] * POCT hemoglobin A1c (06/02/2024 2:33 PM POLICY CANCELLATION CLERK) Pathologist [facility] Hemoglobin A1C, POC 7.5 4.0 - 5.6 % Blood 06/02/2024 2:33 PM POLICY CANCELLATION CLERK Arthur Santiago DO POINT OF CARE TEST ORDERABL ES Final Result * (ABNORMAL) Albumin Creatinine Ratio, Urine (03/13/2024 4:02 PM POLICY CANCELLATION CLERK) [facility] Albumin Ur 25.8 mg/L Comment: Interpretive Data No reference range established. Current interpretive data was last revised 2018. Testing performed by: [facility], [address] [place] [address]., [id number] Creatinine Ur 20.1 mg/dL [facility] ([place]) Comment: Interpretive Data No reference range established. Current interpretive data was last revised 2018. Testing performed by: [facility], [address] [place] [address]., [id number] Albumin Creatinine Ratio, Ur 128(H) 1 - 29 mg/g [facility] ([place]) Comment:Testing performed by : [facility], [address] [place] [address]., [id number] Urine 03/13/2024 4:02 PM POLICY CANCELLATION CLERK 03/13/2024 10:15 PM POLICY CANCELLATION CLERK Betty Perez CAR BODY INSPECTOR LAB URINE ORDERABLES Final Re sult Performing Organization Address City/State/[facility] Co de Phone Number [facility] ([place]) 1 [facility] [place] [address] * RetinaVue Scanner - OU - Both Eyes (02/21/2024) Anatomical Region Laterality Modality Head Fundus Photograp hy 02/21/2024 Arthur Santiago DO OPHTH PHOTOGRAPHY Final Res ult * (ABNORMAL) eGFR (02/04/2024 3:42 AM CDT) [facility] eGFR 49(L) >=60 mL/min/1. 73 m2 Comment: [...] BLOOD ORDERAB LES Final Result [facility] ([place]) 1 [facility] [place] [address] * (ABNORMAL) Lipid panel (01/23/2024 [...] last revised on 2017. Testing performed by: [facility], [address] [place] [address], [place]., [address] Triglycerides 230(H) <=149 mg/dL [facility] ([place]) [...] last revised on 2017. Testing performed by: [facility], [address] [place] [address]., [id number] HDL 51 >=40 mg/dL [facility] ([place]) [...] last revised on 2017. Testing performed by: [facility], [address] [place] [address]., [id number] LDL, calculated 103 <=129 mg/dL [facility] L[facility] [...] last revised on 2023. Testing performed by: [facility], [address] [place] [address]., [id number] Non-HDL Cholesterol 142 mg/dL [facility] ([place]) Comment: Interpretive Data Ages < or = [...] last revised on 2017. Testing performed by: [facility], [address] [place] [address]., [id number] Chol/HDL ratio 4 WILEY [facility] ([place]) Comment:Testing performed by : [facility], [address] [place] [address]., [id number] Blood 01/23/2024 3:51 PM CDT 01/23/2024 7:49 PM CDT Chris Garcia MD LAB BLOOD ORDERABLES Tarah l Result [facility] ([place]) 1 [facility] Department [place] [address] * COLONOSCOPY (01/20/2021 1:05 PM CDT) Anatomical Region Laterality Modality Other Narrative Procedure Note Zuhair Muñoz MD - 01/20/2021 1:05 PM CDT [facility] Patient Name: Sydnie Persaud Procedure Date: 01/20/2021 1:05 PM Date of : 1945 Admit Type: Outpatient Age: 75 Gender: Female Attending MD: Zuhair Muñoz M.D. Room: [facility] ROOM 2 Note Status: Finalized [...] scope was passed under direct vision. TheColonoscope [id number] was introduced through the anus and advanced [...] 1:05 PM Procedure Code(s): --- Professional --- 610[address], Colonoscopy, flexible; diagnostic, including collection of specimen(s) by brushing or washing, when performed (separateprocedure) Diagnosis Code(s): --- Professional --- K57.30, Diverticulosis of large intestine without perforation orabscess without bleeding R19.5, Other fecal abnormalities K64.9, Unspecified hemorrhoids CPT copyright 2019 [employer]. All rights reserved. The codes documented in this report are preliminary and upon robotic machine tender production reviewmay be revised to meet current compliance requirements. Recognized by the [place] [employer] for promoting quality [...] female with given history of asymptomatic screening. 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 MD: Report ID: [id number] Reading Location: [place] [address] Sydni Arroyo CAR BODY INSPECTOR IMG DXA PROCEDURES Final Re sult * DIABETES FOOT EXAM (11/23/2016) Diabetic Foot Exam Normal Historical Provider MD HEALTH MAINTENANCE Final Result from Last 3 Months or Most Recently Relevant to Health Maintenance Insurance [facility] MEDICARE ADVANTAGE [facility] Address: [facility] [address] [place] [id number] Advance Directives For more information, please contact: [phone] * Full Code (Latest Code Status on File) Date Activated Date Inactivated Comments 02/01/2024 10:11 AM 02/04/2024 4:19 PM * Full Code Date Activated Date Inactivated Comments 01/20/2021 12:21 PM 01/20/2021 6:45 PM Care Teams Profile Trimmer Relationship Specialty Start Date End Date Chris Garcia MD [address] [place] [address] PCP - General Family Medicine 11/15/20
== END 2024-07-22 15:20 | disposition home or self-care (01) ==
LOC: ANHLAB 15:20
PROVIDERS: PCP Family Medicine; Visit Provider Orthopaedic Surgery
DX: E07.9 Disorder of thyroid, unspecified (principal); E11.9 Type 2 diabetes mellitus without complications
CPT/HCPCS: 36415; 82040; 82565; 82947

== ENCOUNTER 2024-12-05 13:40 | Outpatient (CLI) | payer MEDICARE, SELFPAY ==
--- OUTSIDE RECORDS SUMMARY | 2024-12-05 13:45 | XMS_ITS | Clinical Summary ---
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 Role Phone Chris Garcia MD Primary Care Provider [phone] Allergies Active Allergy Reactions Criticality Noted Date [...] blood sugars 100 each 4 01/23/20 Active Additional Information Patient not taking.Reported on 09/10/2024 lancets 33 gauge misc Use as directed to test blood sugars 100 each 1 4 Active Additional Information Patient not taking.Reported on 09/10/2024 amLODIPine (NORVASC) 10 mg tablet Take 1 tablet (10 mg total) by mouth daily 30 tablet 11 4 02/05/20 25 Active Additional Information Patient not taking.Reported on 09/10/2024 losartan (COZAAR) 100 mg tablet Take 1 tablet (100 mg total) by mouth daily 30 tablet 4 02/05/20 25 Active blood-glucose meter miscIndications :Type 2 diabetes mellitus with hyperglycemia, without long-term current use of insulin (HCC) Use daily or as directed for monitoring of diabetes. [employer] Contour Glucose Meter - DX: E11.65 1 each 4 Active Additional Information Patient not taking.Reported on 09/10/2024 lancets 33 gauge miscIndications :Type 2 diabetes mellitus with hyperglycemia, without long-term current use of insulin (HCC) Use to test blood sugar once daily. 100 each 4 Active Additional Information Patient not taking.Reported on 09/10/2024 Jardiance 25 mg tablet Take 1 tablet (25 mg total) by mouth daily 30 tablet 4 02/21/20 25 Active Additional Information Patient not taking.Reported on 09/10/2024 HYDROcodone-tess taminophen (NORCO) 5-325 mg per tabletIndicatio ns:Pain Take 1 tablet by mouth every 6 (six) hours as needed for pain 28 tablet 4 Active Januvia 50 mg tabletIndicatio ns:type 2 diabetes mellitus Take 1 tablet (50 mg total) by mouth daily 90 tablet 3 5 06/02/19 26 Active Additional Information Patient not taking.Reported on 09/10/2024 glimepiride (AmaryL) 4 mg tabletIndicatio ns:type 2 diabetes mellitus Take 1 tablet (4 mg total) by mouth daily with breakfast 90 tablet 3 5 Active pravastatin (PRAVACHOL) 40 mg tabletIndicatio ns:Dyslipidemia associated with type 2 diabetes mellitus (HCC) TAKE 1 TABLET BY MOUTH EVERY DAY 100 tablet 5 Active traMADoL (ULTRAM) 50 mg tablet Take 1 tablet (50 mg total) by mouth every 6 (six) hours as needed for pain Active blood-glucose sensor (Dexcom G7 Sensor) device Dexcom G7 sensor use for 10 days to monitor blood sugar. 9 each 3 5 Active escitalopram (LEXAPRO) 10 mg tablet Take 1 tablet (10 mg total) by mouth daily 90 tablet 4 5 Active Active Problems Problem Noted Date Diagnosed Date Bilateral carpal tunnel syndrome 09/10/2024 Assessment & Plan (09/10/2024 3:26 PM CDT): Recommend bracing. Can use OTC Voltaren. If not improving follow up with access specialist, Dr. Miranda. Chest pain 09/10/2024 Assessment & Plan (09/10/2024 3:26 PM CDT): No acute findings on ECG. Would recommend stress test and establishing with Cardiology. We also reviewed red flags which would warrant e.d./911. She is in agreement with plan states understanding. Hyperkalemia 09/10/2024 Assessment & Plan (09/10/2024 3:27 PM CDT): Stop potassium supplement. Will recheck BNP in 1-2 weeks. Postmenopausal 09/10/2024 Assessment & Plan (09/10/2024 3:27 PM CDT): Encouraged calcium and vitamin-D along with weight-bearing exercise. Will check bone density scan and plan accordingly. Need for hepatitis B screening test 09/10/2024 Encounter for Medicare annual wellness exam 08/28 Assessment & Plan (09/10/2024 3:29 PM CDT): Visit preventive in nature. We reviewed medications, chronic conditions, risk factors, lifestyle recommendations. Reviewed immunization recommendations. Follow-up in 3 months for chronic conditions and 1 year for annual wellness. Type 2 diabetes mellitus wit h stage 3a chronic kidney disease, without long-term current use of insulin 03/13/2024 Assessment & Plan (03/13/2024 3:35 PM ANESTHESIOLOGY FELLOW): Kidney function is decreasing will continue to monitor. Discussed avoids salt, NSAIDs, and proper hydration. Sydnie is not interested in seeing Nephrology at this time. We will continue to monitor closely. Chronic right shoulder pain 03/13/2024 Assessment & Plan (03/13/2024 4:34 PM ANESTHESIOLOGY FELLOW): Pain not well controlled on Tramadol. Patient saw ortho and was given an injection which did not help. [place] sent in for pain relief to see if that will work better than Tramadol BMI 32.0-32.9,adult 03/13/2024 Assessment & Plan (03/13/2024 3:58 PM ANESTHESIOLOGY FELLOW): Weight appropriate for patient. Hyponatremia 02/05/2024 Assessment & Plan (02/05/2024 1:35 PM CDT): HCTZ discontinued. Dizziness 02/01/2024 Assessment & Plan (02/13/2024 6:41 AM CDT): Dizziness has resolved; no falls or safety concerns. Headache has resolved. Mild episode of recurrent major depressive disor brenda 03/08/2023 Assessment & Plan (09/10/2024 3:24 PM CDT): Will initiate Lexapro. Reviewed scheduling and side effects. Follow-up in 3 months. Sooner for any concerns. Assessment & Plan (03/08/2023 3:24 PM ANESTHESIOLOGY FELLOW): PHQ = 2 Patient reports moods are stable overall, some bad days but has more good days than bad days. Sleeping well. Notable improvement in moods with duloxetine. Angina pectoris, unspecified 02/28/2022 Assessment & Plan (03/08/2023 3:28 PM ANESTHESIOLOGY FELLOW): Denies any recent chest pain or need for nitro Blood pressure well controlled. Assessment & Plan (02/28/2022 4:10 PM CDT): Nitro refilled. Physical exam, annual 02/28/2022 Assessment & Plan (03/08/2023 3:11 PM ANESTHESIOLOGY FELLOW): Preventative exam. Reviewed recommended preventative screenings and [...] healthier, we can set up appointment with talent acquisition manager/drink mixer. 3. Have an active lifestyle, strive for [...] 11/22/2021 Assessment & Plan (03/08/2023 3:26 PM ANESTHESIOLOGY FELLOW): Stable; patient is taking medications as prescribed. [...] so. Assessment & Plan (06/16/2022 2:54 PM ANESTHESIOLOGY FELLOW): Patient with chronic pain, taking medications as [...] refill today. COVID-19 vaccine dose declined 06/30/2021 CKD stage 3 due to type 2 diabetes mellitus 11/2020 Assessment & Plan (09/10/2024 3:24 PM CDT): Renal function stable. Encourage adequate p.o. water intake. Assessment & Plan (03/08/2023 3:23 PM ANESTHESIOLOGY FELLOW): Stable continues to avoid NSAIDs. Diabetes well controlled. Encouraged patient to schedule eye exam at her convenience. Assessment & Plan (12/14/2022 6:21 PM CDT): Stable, repeat labs ordered today. Assessment & Plan (09/14/2022 2:48 PM CDT): Again reviewed need to better control diabetes. Stable. Assessment & Plan (06/16/2022 2:49 PM ANESTHESIOLOGY FELLOW): Estimated Creatinine Clearance: 30.7 mL/min (A) (by [...] CM Assessment & Plan (07/01/2021 11:01 PM ANESTHESIOLOGY FELLOW): Component Ref Range & Units 11 mo ago 2 yr ago eGFR mL/min/1.73 m2 51 84 CM Labs ordered; will check today. Discussed need to keep BP/DM under control to protect kidneys. Assessment & Plan (02/04/2021 2:11 PM CDT): GFR=51 06/2020. Mammogram declined 02/04/2021 Anger 02/04/2021 Assessment & Plan (11/22/2021 6:45 PM CDT): Never started fluoxetine as papers with medication stated interaction between fluoxetine & tramadol. Feels that it is no longer needed. Feels that anger has calmed down. Assessment & Plan (04/01/2021 2:02 PM ANESTHESIOLOGY FELLOW): Never started fluoxetine as papers with medication [...] (01/04/2021): Added automatically from request for surgery [id number] Dyslipidemia associated with type 2 diabetes malcolm espinal 07/08/2020 Assessment & Plan (09/10/2024 3:25 PM CDT): LDL 113. Goal less than 70. Highly encourage heart healthy diet. Will continue pravastatin at this time. Will recheck lipid panel upon return. Can consider medication change at that time. Assessment & Plan (02/13/2024 6:42 AM CDT): [...] box. Assessment & Plan (06/16/2022 2:50 PM ANESTHESIOLOGY FELLOW): Continues on pravastatin 40 mg daily as prescribed. Reviewed labs today with patient. Assessment & Plan (02/28/2022 4:08 PM CDT): 07/08/20 XK=860 HDL=52 TG=80 LDL=55 TC/HDL=2.0 06/30/21 ZK=269 HDL=40 MP=435 BZW=979 TC/HDL=6 ZMNHOO=258 11/22/21 QZ=412 HDL=42 WX=299 KEC=590 TC/HDL=6 HUYERO=984 Pravastatin 40mg daily. Some metallic taste per [...] & Plan (11/22/2021 6:42 PM CDT): 07/08/20 DF=268 HDL=52 TG=80 LDL=55 TC/HDL=2.0 06/30/21 ME=734 HDL=40 [place]=519 PGQ=633 TC/HDL=6 GJEHFE=641 Still does not want to take statins. Reviewed that total cholesterol and LDL levels elevated; require statins especially with diabetes diagnosis. Reviewed diet necessary to help decrease total cholesterol and LDL. States that she eats red meat at least 3 times a week and does not want to decrease that. Reviewed diet/exercise recommendations. Assessment & Plan (08/03/2021 7:13 PM CDT): VI=683 HDL=40 KQ=851 ABO=575 TC/HDL=6 GNFGFF=340 Does not want to take statins. Reviewed [...] recommendations. Assessment & Plan (07/01/2021 10:50 PM ANESTHESIOLOGY FELLOW): Has been off of atorvastatin since 05/31/21. [...] & Plan (02/04/2021 6:07 PM CDT): 06/25/19 UX=880 HDL=49 IG=926 WEU=498 TC/HDL=5.0 07/08/20 UI=547 HDL=52 TG=80 LDL=55 TC/HDL=2.0 Atorvastatin 20mg daily. Patient should focus on limiting bad fats in the diet and using exercise as a way to improve the lipid status. Secondary prevention. Reviewed medications. Denies any statin Ses. Reviewed diet/exercise recommendations. Reviewed red flags. Assessment & Plan (10/08/2020 4:03 PM CDT): 10/01/15 EC=894 HDL=43 TG= 246 LDL=81 06/25/19 TC246 HDL=49 DR=409 OWZ=622 TC/HDL=5.0 07/08/20 TC123 HDL=52 TG=80 LDL= 55 TC/HDL=2 Atorvastatin 20mg daily. Denies any SE/myalgias Reviewed previous labs. Will check labs today and make adjustments to medications as needed. Secondary prevention Discussed focusing on limiting bad fats in the diet and using exercise as a way to improve cholesterol. Reviewed exercise recommendations and red flags warranting further evaluation. Assessment & Plan (07/08/2020 3:29 PM ANESTHESIOLOGY FELLOW): 10/01/15 QQ=302 HDL=43 FG=847 LDL=81 06/25/19 QI=140 HDL=49 OZ=483 [place]=715 TC/HDL=5.0 Atorvastatin 20mg daily. Denies myalgias. We [...] associated with diabetes 07/08/2020 Assessment & Plan (09/10/2024 3:25 PM CDT): Stable. Continue losartan. Will continue to monitor. Assessment & Plan (03/13/2024 3:36 PM ANESTHESIOLOGY FELLOW): Advised that Amlodipine could be causing lower leg swelling. Patient states she is wanting to try to stop the medication and see if that will help her swelling without impacting her HTN. Assessment & Plan (02/05/2024 1:36 PM CDT): BP stable; now taking losartan 100 mg daily and amlodipine 10 mg daily. Assessment & Plan (03/08/2023 3:23 PM ANESTHESIOLOGY FELLOW): Blood pressure is well controlled, continue losartan-hydrochlorothiazide 125 mg tablet daily Assessment & Plan (12/14/2022 6:22 PM CDT): Blood pressure is well controlled, no changes in current medication. Assessment & Plan (06/16/2022 2:52 PM ANESTHESIOLOGY FELLOW): BP elevated today, patient reports she has [...] 08/02/21. Assessment & Plan (07/01/2021 10:55 PM ANESTHESIOLOGY FELLOW): Increase losartan/hctz to 100/25mg. Continues on metoprolol. [...] results. Assessment & Plan (07/08/2020 2:27 PM ANESTHESIOLOGY FELLOW): Changed from lisinopril/hczt to losartan/hctz d/t cough. [...] 07/08/2020 Assessment & Plan (07/01/2021 10:58 PM ANESTHESIOLOGY FELLOW): Sparingly uses tramadol. Refilled today. Takes tramadol [...] cream Assessment & Plan (07/08/2020 3:19 PM ANESTHESIOLOGY FELLOW): Has tramadol at home that she uses [...] protection. Assessment & Plan (07/01/2021 10:48 PM ANESTHESIOLOGY FELLOW): Discussed and the patient refuses immunization today. Educated regarding the need to vaccinate for personal protection. Assessment & Plan (04/05/2021 7:12 PM ANESTHESIOLOGY FELLOW): Discussed and the patient refuses immunization today. Educated regarding the need to vaccinate for personal protection Assessment & Plan (02/04/2021 6:10 PM CDT): Discussed and the patient refuses immunization today. Educated regarding the need to vaccinate for personal protection. Assessment & Plan (07/08/2020 2:27 PM ANESTHESIOLOGY FELLOW): Discussed and the patient refuses immunization today. Educated regarding the need to vaccinate for personal protection. Assessment & Plan (06/25/2019 9:21 AM ANESTHESIOLOGY FELLOW): She refuses. Refused influenza vaccine 06/25/2019 Assessment & Plan (02/28/2022 4:05 PM CDT): Discussed and the patient refuses immunization today. Educated regarding the need to vaccinate for personal protection and to limit the viruses in the community to protect those most vulnerable. Assessment & Plan (07/01/2021 10:48 PM ANESTHESIOLOGY FELLOW): Discussed and the patient refuses immunization today. Educated regarding the need to vaccinate for personal protection and to limit the viruses in the community to protect those most vulnerable. Assessment & Plan (04/05/2021 7:12 PM ANESTHESIOLOGY FELLOW): Discussed and the patient refuses immunization today. [...] vulnerable. Assessment & Plan (07/08/2020 2:27 PM ANESTHESIOLOGY FELLOW): Discussed and the patient refuses immunization today. Educated regarding the need to vaccinate for personal protection and to limit the viruses in the community to protect those most vulnerable. Assessment & Plan (06/25/2019 9:21 AM ANESTHESIOLOGY FELLOW): She refuses. Hyperlipidemia 11/23/2016 Assessment & Plan (10/06/2019 1:54 PM CDT): Will continue statin. Will plan on new labs in 3 months. Idiopathic chronic gout of multiple sites chandrika [...] time. Assessment & Plan (06/16/2022 2:56 PM ANESTHESIOLOGY FELLOW): Lab Results Component Value Date HGBA1C 7.6 [...] intake. Assessment & Plan (07/01/2021 10:47 PM ANESTHESIOLOGY FELLOW): A1c, micoralbumin & cmp ordered. Last A1c's: [...] evaluation. Assessment & Plan (07/08/2020 3:31 PM ANESTHESIOLOGY FELLOW): Lab Results Component Value Date HGBA1C 7.6 [...] evaluation. Assessment & Plan (03/11/2020 2:05 PM ANESTHESIOLOGY FELLOW): Diagnosed few years ago Started treatment in [...] month Assessment & Plan (07/02/2019 1:49 PM ANESTHESIOLOGY FELLOW): She states blood sugars have been stable at home. Will continue current prescribed therapy. She states she has been colon Endocrinology to schedule appointment. She has also scheduling her eye exam appointment. Obstructive sleep apnea syndrome 05/14/2014 Overview (08/04/2016): ROSA M Assessment & Plan (07/02/2019 1:36 PM ANESTHESIOLOGY FELLOW): She states she has been sleeping well this past week. Will continue current prescribed therapy. Assessment & Plan (06/25/2019 9:21 AM ANESTHESIOLOGY FELLOW): She does not wish to have a sleep study at this time. Subclinical hypothyroidism 09/27/2013 Overview (08/04/2016): Subclinical hypothyroidism Assessment & Plan (07/08/2020 3:30 PM ANESTHESIOLOGY FELLOW): TSH reflex T4 ordered; will contact w/results [...] 07/16/2021 Assessment & Plan (07/01/2021 11:01 PM ANESTHESIOLOGY FELLOW): Reviewed need to lose weight, reviewed health benefits. Reviewed recommendations for daily intake & activity 20-30 minutes/day. Discussed healthy diet and importance of regular physical activity. Class 1 obesity due to exces s calories without serious comorbidity with body mass index (BMI) of 32.0 to 32.9 in adult 04/01/202106/2021 Assessment & Plan (04/01/2021 2:03 PM ANESTHESIOLOGY FELLOW): Reviewed need to lose weight, reviewed health [...] 11/22/2021 Assessment & Plan (04/05/2021 7:12 PM ANESTHESIOLOGY FELLOW): Never started fluoxetine. Feels that depression has improved. Feels that she is doing well as her husbands anniversary is approaching (12/10/21). Assessment & Plan (02/04/2021 6:11 PM CDT): [...] PM CDT): Hx of angina. Cath in 2013 : mild CAD Given referral to cardiology [...] exercise. Assessment & Plan (03/08/2023 3:23 PM ANESTHESIOLOGY FELLOW): Stable, continues with active lifestyle. Assessment & Plan (09/14/2022 2:49 PM CDT): Patient enjoying more activities, dancing and getting our of the house. Assessment & Plan (06/16/2022 2:49 PM ANESTHESIOLOGY FELLOW): Discussed healthy diet and importance of regular [...] dog. Assessment & Plan (07/08/2020 2:26 PM ANESTHESIOLOGY FELLOW): Reviewed need to lose weight, reviewed health benefits. Reviewed recommendations for daily intake & activity 20-30 minutes/day. Discussed healthy diet and importance of regular physical activity. Encounter for screening colonoscopy 07/02/2019 07/08/2020 Overview (07/02/2019): Added automatically from request for surgery [id number] Diarrhea 07/02/2019 07/08/2020 Assessment & Plan (07/02/2019 1:40 PM ANESTHESIOLOGY FELLOW): Advised on need for hydration and bulking up stool Neck pain 07/02/2019 10/08/2020 Assessment & Plan (07/02/2019 1:48 PM ANESTHESIOLOGY FELLOW): Will await response to physical therapy. Screening for malignant neoplasm of colon 06/25/2019 07/08/2020 Secondary hyperparathyroidism 11/23/2016 10/08/2020 Hypertension 10/01/2015 07/08/2020 Overview (08/04/2016): HTN (hypertension) Assessment & Plan (03/11/2020 2:07 PM ANESTHESIOLOGY FELLOW): Complicated with nephropathy Controlled with Lisinopril Plan: Low salt diet. Continue medication Improve diabetes control. Assessment & Plan (12/08/2019 4:10 PM CDT): Complicated with nephropathy Controlled with Lisinopril Plan: Informed patient about her kidney statu Continue medication Improve diabetes control. Assessment & Plan (10/06/2019 1:55 PM CDT): Stable today. Assessment & Plan (07/02/2019 1:37 PM ANESTHESIOLOGY FELLOW): She has responded well to the blood pressure medication. Impaired fasting glucose 09/18/201302/2021 Overview (08/04/2016): Impaired fasting glucose Stage 3 chronic kidney disease 09/13/2013 08/03/2021 Overview (2016): Chronic kidney failure Encounters Date Type Department Care Team Description 10/28/2024 1:30 PM CDT - 10/28/2024 11:59 PM CDT Hospital Encounter [address] [address] Postmenopausal Discharge Disposition: Discharge to home or self care 10/01/2024 9:28 AM CDT - 10/01/2024 11:59 PM CDT Hospital Encounter [address] [address] Discharge Disposition: Discharge to home or self care 10/01/2024 8:37 AM CDT - 10/01/2024 11:59 PM CDT Hospital Encounter [facility] [address] [place] [address] Discharge Disposition: Discharge to home or self care 10/01/2024 7:33 AM CDT - 10/01/2024 11:59 PM CDT Hospital Encounter [facility] [address] [place] [address] Chest pain, unspecified type Discharge Disposition: Discharge to home or self care 10/01/2024 7:29 AM CDT - 10/01/2024 11:59 PM CDT Hospital Encounter [facility] [address] [place] [address] Chest pain, unspecified type Discharge Disposition: Discharge to home or self care 10/01/2024 Results Follow-Up [facility] [address] [id number] Carolin Gonzalez NP [place] MPI SPECT (Rest and/or Stress) Multiple Studies, Dexa Axial Skeleton Bone Density 1 Or 2 Site 09/11/2024 Telephone [facility] [address] [phone] Chris Garcia MD Prior Auth (dexcom) 09/10/2024 2:30 PM CDT Office Visit [facility] [address] [phone] Carolin Gonzalez NP Encounter for Medicare annual wellness exam (Primary Dx); Hypertension associated with diabetes (HCC); Dyslipidemia associated with type 2 diabetes mellitus (HCC); Bilateral carpal tunnel syndrome; Chest pain, unspecified type; Hyperkalemia; CKD stage 3 due to type 2 diabetes mellitus (HCC); Postmenopausal; Need for hepatitis B screening test; Encounter for hepatitis C screening test for low risk patient; Class 1 obesity due to excess calories with serious comorbidity and body mass index (BMI) of 32.0 to 32.9 in adult; Mild episode of recurrent major depressive disorder 09/08/2024 1:30 PM CDT Lab [facility] [address] [place] [address] [place] [address] Hypertension associated with diabetes (HCC); Dyslipidemia associated with type 2 diabetes mellitus (HCC) 09/05/2024 Telephone [facility] [address] [place] [address] Alma Bhakta MA Labs Requested for Appointment from Last 3 Months Immunizations Immunization Administration [...] Chronic kidney disease Type 2 diabetes mellitus Family History Medical History Relation Name Comments [...] : old age Valvular heart disease Mother valvu lar heart disease; Other Sister 1 jose [...] points, staff should administer the PHQ-9) 0 09/10/2024 Personal Safety Answer Date Recorded Have you ever been in or are you currently in a harmful physical or emotional relationship or is someone making you feel afraid or unsafe? Denies 02/01/2024 Comments No Sex and Gender Information Value Date Recorded Sex Assigned at Not on file Legal Sex Female 6:52 PM ANESTHESIOLOGY FELLOW Gender Identity Not on file Sexual Orientation Not on file Obstetrics History Last Filed Vital Signs Vital Sign Reading Time Taken Comments Blood Pressure 132/66 09/10/2024 3:15 PM CDT Pulse 78 09/10/2024 2:27 PM CDT Temperature 36.4 C (97.5 F) 09/10/2024 2:27 PM CDT Respiratory Rate 18 09/10/2024 2:27 PM CDT Oxygen Saturation 96% 09/10/2024 2:27 PM CDT Inhaled Oxygen Concentration - - Weight 79.6 kg (175 lb 6.4 oz) 09/10/2024 2:27 P M CDT Height 157.5 cm (5' 2.01) 09/10/2024 2:27 PM CD T Body Mass Index 32.07 09/10/2024 2:27 PM CDT Plan of Treatment Health Maintenance Due Date Last Done Comments Hepatitis C Screening 1945 Hepatitis B Screening 08/04/1963 Pneumococcal vaccine 65+ (1 of 2 - PCV) 08/04/1966 Zoster Vaccine (2 of 3) 02/12/2016 12/18/2015, 12/17 DTaP/Tdap/Td Vaccine (2 - Td or Tdap) 05/24/2020 05/24/2010 Hemoglobin A1C 11/30/2024 06/02/2024, 12/30, 12/14/2022, Additional history exists Influenza Vaccine (#1) 2024 Foot Exam 02/04/2025 02/05/2024, 12/2022, 04/01/2021, Additional history exists Albumin Creatinine Ratio, Urine 03/13/2025 03/13/2024, 01/23/2024, 12/14/2022, Additional history exists Lipid Panel 09/08/2025 09/08/2024, 12/30, 12/14/2022, Additional history exists eGFR 09/08/2025 09/08/2024, 10/2023, 02/03/2024, Additional history exists Depression Screening 09/10/2025 09/10/2024, 03/13/2024, 02/05/2024, Additional history exists Fall Risk Assessment 09/10/2025 09/10/2024, 03/13/2024, 02/05/2024, Additional history exists Well Visit 65+ 09/10/2025 09/10/2024, 12/2022, 02/28/2022, Additional history exists Dilated Eye Exam 02/20/2026 02/21/2024, , 07/26/2015 Osteoporosis Screening-Bone Density Scan 10/28/2026 10/28/2024, 10/13/2020, 06/17/2013 Colon Cancer Screening-CT Colonography Discontinued 01/20/2021, 06/04/2006 Colon Cancer Screening-Colonoscopy Discontinued 01/20/2021, 06/04/2006 Colon Cancer Screening-DNA Stool Discontinued 01/20/2021, 10/27/2020, 06/04/2006 Colon Cancer Screening-FIT Discontinued 01/20, 10/27/2020, 06/04/2006 Colon Cancer Screening-FOBT Discontinued 12/30, 10/27/2020, 06/04/2006 Colon Cancer Screening-Sigmoidoscopy Discontinued 01/20/2021, 06/04/2006 Colorectal Cancer Screening Discontinued Procedures Procedure Name Priority Date/Time Associated Diagnosis Comments DEXA AXIAL SKELETON BONE DENSITY 1 OR MORE SITES Schedule Routine, Read Routine (OP Routine) 10/28/2024 1:41 PM CDT Postmenopausal STRESS TEST FOR DUAL READ Schedule Routine, Read Routine (OP Routine) 10/01/2024 9:30 AM CDT Chest pain, unspecified type NM MPI SPECT (REST AND/OR STRESS) MULTIPLE STUDIES Schedule Routine, Read Routine (OP Routine) 10/01/2024 9:30 AM CDT Chest pain, unspecified type ECG 12-LEAD Routine 09/10/2024 3:01 PM CDT Chest pain, unspecified type EGFR Routine 09/08/2024 11:16 PM CDT Hypertension associated with diabetes (HCC) Dyslipidemia associated with type 2 diabetes mellitus (HCC) COMPREHENSIVE METABOLIC PANEL Routine 09/08/2024 11:16 PM CDT Hypertension associated with diabetes (HCC) Dyslipidemia associated with type 2 diabetes mellitus (HCC) LIPID PANEL Routine 09/08/2024 11:16 PM CDT Hypertension associated with diabetes (HCC) Dyslipidemia associated with type 2 diabetes mellitus (HCC) DIFFERENTIAL AUTO Routine 09/08/2024 10: 10 AM CDT Hypertension associated with diabetes (HCC) Dyslipidemia associated with type 2 diabetes mellitus (HCC) CBC WITH AUTO DIFFERENTIAL Routine 09/08/2024 10:10 AM CDT Hypertension associated with diabetes (HCC) Dyslipidemia associated with type 2 diabetes mellitus (HCC) POCT HEMOGLOBIN A1C Routine 06/02/2024 2 :33 PM ANESTHESIOLOGY FELLOW Type 2 diabetes mellitus with hyperglycemia, without long-term current use of insulin (HCC) ALBUMIN CREATININE RATIO, URINE Routine 03/13/2024 4:02 PM ANESTHESIOLOGY FELLOW Type 2 diabetes mellitus with stage 3a chronic kidney disease, without long-term current use of insulin (HCC) RETINAVUE SCANNER - OU - BOTH EYES Routine 02/21/2024 Type 2 diabetes mellitus with hyperglycemia, without long-term current use of insulin (HCC) COLONOSCOPY 01/20/2021 1:05 PM CDT HM DIABETES FOOT EXAM Routine 11/23/2016 from Last 3 Months or Most Recently Relevant to Health Maintenance Results * Dexa Axial Skeleton Bone Density 1 Or 2 Site (10/28/2024 1:41 PM CDT) Anatomical Region Laterality Modality Body N/A Other 10/29/2024 3:49 PM CDT Narrative 10/29/2024 3:50 PM CDT EXAM DESCRIPTION: DEXA AXIAL SKELETON BONE DENSITY 1 OR MORE SITES REASON FOR STUDY: 79 y/o year old F with given history of: 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 CLINICAL INFORMATION: Current height: 62 inches Maximum height: 62 inches Weight: 175 pounds Risk factors: Postmenopausal COMPARISON: 10/13/2020 Dissimilar scan types or analysis methods precludes assessment for calculating a significant change. FINDINGS: AP LUMBAR SPINE L1-L4: Total BMD is 1.078 g/cm2 T-score is 0.3 LEFT HIP: Total BMD is 0.978 g/cm2 T-score is 0.3 Femoral neck BMD is 0.711 g/cm2 T-score is -1.2 FRAX: 10 year risk for a major osteoporotic fracture is 11 %, 10 year risk for a hip fracture is 2.0 % Per National Osteoporosis Foundation guidelines, this patient does not meet the criteria for pharmacological treatment of patients with FRAX 10 year major osteoporotic fracture risk scores of = or greater than 20% or a 10 year probability of a hip fracture = or greater than 3%, to reduce fracture risk. Additional factors such as frequent falls are not represented in FRAX and warrant individual clinical judgment. IMPRESSION: 1. Low Bone Mass. REFERENCE: Bone mineral density: T-Score: Normal (T-score above or = -1.0) Low bone mass (T-score between -1.0 and -2.5) replaces the previously used term osteopenia Osteoporosis (T-score = or below -2.5) Z-Score: Within the expected range for age (Z-score above -2.0) Below the expected range for age (Z-score is -2.0 or below) Please see below follow up recommendations. Medical evaluation for secondary causes of low [...] greater than 3% should be considered for pharmacological treatment for the prevention of osteoporosis. For further information, including treatment recommendations, please refer to the 2019 ISCD Official Positions (http://www.iscd.org) and the NOF's Clinician's Guide to Prevention and Treatment of Osteoporosis (http://www.nof.org/professionals/clinical-guidelines) THIS IS AN ELECTRONICALLY VERIFIED FINAL REPORT 10/29/2024 3:50 PM - Electronically signed by Angel Riley M.D. 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 CLINICAL INFORMATION: Current height: 62 inches Maximum height: 62 inches Weight: 175 pounds Risk factors: Postmenopausal COMPARISON: 10/13/2020 Dissimilar scan types or analysis methods precludes assessment for calculating a significant change. FINDINGS: AP LUMBAR SPINE L1-L4: Total BMD is 1.078 g/cm2 T-score is 0.3 LEFT HIP: Total BMD is 0.978 g/cm2 T-score is 0.3 Femoral neck BMD is 0.711 g/cm2 T-score is -1.2 FRAX: 10 year risk for a major osteoporotic fracture is 11 %, 10 year risk for ahip fracture is 2.0 % Per National Osteoporosis Foundation guidelines, this patient does notmeet the criteria for pharmacological treatment of patients with FRAX 10 yearmajor osteoporotic fracture risk scores of = or greater than 20% or a 10 year probability of a hip fracture = or greater than 3%, to reduce fracturerisk. Additional factors such as frequent falls are not represented in FRAX and warrant individual clinical judgment. IMPRESSION: 1. Low Bone Mass. REFERENCE: Bone mineral density: T-Score: Normal (T-score above or = -1.0) Low bone mass (T-score between -1.0 and -2.5) replaces thepreviously used term osteopenia Osteoporosis (T-score = or below -2.5) Z-Score: Within the expected range for age (Z-score above -2.0) Below the expected range for age (Z-score is -2.0 or below) Please see below follow up recommendations. Medical evaluation forsecondary causes of low bone mineral density may [...] or greaterthan 3% should be considered for pharmacological treatment for the preventionof osteoporosis. For further information, including treatment recommendations, please referto the 2019 ISCD Official Positions (http://www.iscd.org) and the NOF's Clinician's Guide to Prevention and Treatment of Osteoporosis (http://www.nof.org/professionals/clinical-guidelines) THIS IS AN ELECTRONICALLY VERIFIED FINAL REPORT 10/29/2024 3:50 PM - Electronically signed by Angel Riley M.D. MF: LA Report ID: [id number] Reading Location: [id number] Carolin Gonzalez NP IMG DXA PROCEDURES Final R esult * NM MPI SPECT (Rest and/or Stress) Multiple Studies (10/01/2024 9:30 AM CDT) Anatomical Region Laterality Modality Body N/A Nuclear Medicine 10/01/2024 9:46 AM CDT Narrative 10/01/2024 10:01 AM CDT EXAM DESCRIPTION: NM MPI SPECT (REST AND/OR STRESS) MULTIPLE STUDIES REASON FOR STUDY: Ischemic symptoms, prior ECG (abnormal), chest pain RADIOPHARMACEUTICAL: Rest: 10.7 mCi Tc-99m tetrofosmin via a left arm IV site. Stress: 32 mCi Tc-99m tetrofosmin via a left arm IV site. TECHNIQUE: Standard myocardial perfusion SPECT images were obtained after resting tracer injection. Subsequently, an intravenous infusion of 0.4 mg Lexiscan was performed. Standard myocardial perfusion SPECT images were obtained after tracer injection at the peak effect of the drug. COMPARISON: None. FINDINGS: Image quality is adequate at rest and adequate at stress. There are no perfusion abnormalities. The left ventricular cavity size is normal. Gated tomographic images demonstrate normal wall motion and wall thickening with a left ventricular ejection fraction of 75% poststress (normal >45%). IMPRESSION: 1. Normal myocardial perfusion. 2. No scintigraphic evidence of myocardial ischemia. 3. Normal left ventricular ejection fraction poststress. 4. Normal left ventricular wall motion. THIS IS AN ELECTRONICALLY VERIFIED FINAL REPORT 10/01/2024 10:01 AM - Electronically signed by Zac Mahoney M.D. CH: ASA Report ID: [id number] Reading Location: [id number] Procedure Note Zac Mahoney Jr., MD - 10/01/2024 EXAM DESCRIPTION: NM MPI SPECT (REST AND/OR STRESS) MULTIPLE STUDIES REASON FOR STUDY: Ischemic symptoms, prior ECG (abnormal), chest pain RADIOPHARMACEUTICAL: Rest: 10.7 mCi Tc-99m tetrofosmin via a left armIV site. Stress: 32 mCi Tc-99m tetrofosmin via a left arm IV site. TECHNIQUE: Standard myocardial perfusion SPECT images were obtained after resting tracer injection. Subsequently, an intravenous infusion of 0.4mg Lexiscan was performed. Standard myocardial perfusion SPECT images were obtained after tracer injection at the peak effect of the drug. COMPARISON: None. FINDINGS: Image quality is adequate at rest and adequate at stress. There are no perfusion abnormalities. The left ventricular cavity size is normal. Gated tomographic images demonstrate normal wall motion and wallthickening with a left ventricular ejection fraction of 75% poststress (normal >45%). IMPRESSION: 1. Normal myocardial perfusion. 2. No scintigraphic evidence of myocardial ischemia. 3. Normal left ventricular ejection fraction poststress. 4. Normal left ventricular wall motion. THIS IS AN ELECTRONICALLY VERIFIED FINAL REPORT 10/01/2024 10:01 AM - Electronically signed by Zac Mahoney M.D. CH: ASA Report ID: [id number] Reading Location: [place] [address] Carolin Gonzalez ROTOR WINDER IMG [place] PROCEDURES Final Re sult * Stress Test for Myocardial Perfusion (10/01/2024 9:30 AM CDT) Anatomical Region Laterality Modality Nuclear Medicine 10/01/2024 8:30 AM CDT Narrative 10/01/2024 9:44 AM CDT [address] [address] [employer] Report Patient Name: SYDNIE PERSAUD W : 1945 Study Date: 10/01/2024 8:30:00 AM Gender: F Tech: jackelyn Uribe Provider: CAROLIN GONZALEZ Height(Cm): 157 BSA: 2.77 Weight(Kg): 176 Heart Rate: 122 Order Provider: CAROLIN GONZALEZ PROCEDURES: Pharmacologic SPECT Report.: Myocardial perfusion imaging with Sestamibi SPECT at rest and post regadenoson (Lexiscan) infusion. INDICATIONS: R07.9 Chest pain, unspecified. FINDINGS: Procedure Data: Resting HR 82 bpm Peak HR: 100 bpm Predicted Maximal HR 143 bpm Target HR: 122 bpm Percent Max Predicted HR Achieved: 69.93 % Baseline BP: 163/78 mmHg Peak BP: 171/79 mmHg Exercise Time: 00:10 Medications: Free Text. Performed By: Supervising Physician: The Supervising Physician is sierra gloria. Reason for Termination: Lexiscan protocol complete. Resting ECG: Normal sinus rhythm at 82 beats per minute, normal axis, poor R-wave progression, possible old anteroseptal ND. Post Pharm ECG: No diagnostic ST changes. Arrhythmia: No arrhythmias seen. Cardiac Symptoms With Stress: Symptoms with stress were None. Exam Interpreted: Read by . CONCLUSIONS: 1. Negative Lexiscan pharmacologic stress test for chest pain or EKG changes. 2. Nuclear images are pending and they will be reported separately. Electronically Signed By: Dr Benjamin Sena 10/01/2024 9:23:02 AM CDT Procedure Note Benjamin Sena MD - 10/01/[address] [address] [employer] Report Patient Name: SYDNIE PERSAUD W : 1945 Study Date: 10/01/2024 8:30:00 AM Gender: F Tech: jackelyn Uribe Provider: CAROLIN GONZALEZ Height(Cm): 157 BSA: 2.77 Weight(Kg): 176 Heart Rate: 122 Order Provider: CAROLIN GONZALEZ PROCEDURES: Pharmacologic SPECT Report.: Myocardial perfusion imaging with Sestamibi SPECT at rest and postregadenoson (Lexiscan) infusion. INDICATIONS: R07.9 Chest pain, unspecified. FINDINGS: Procedure Data: Resting HR 82 bpm Peak HR: 100 bpm Predicted Maximal HR 143 bpm Target HR: 122 bpm Percent Max Predicted HR Achieved: 69.93 % Baseline BP: 163/78 mmHg Peak BP: 171/79 mmHg Exercise Time: 00:10 Medications: Free Text. Performed By: Supervising Physician: The Supervising Physician is sierra gloria. Reason for Termination: Lexiscan protocol complete. Resting ECG: Normal sinus rhythm at 82 beats per minute, normal axis, poor R-waveprogression, possible old anteroseptal ND. Post Pharm ECG: No diagnostic ST changes. Arrhythmia: No arrhythmias seen. Cardiac Symptoms With Stress: Symptoms with stress were None. Exam Interpreted: Read by . CONCLUSIONS: 1. Negative Lexiscan pharmacologic stress test for chest pain or EKGchanges. 2. Nuclear images are pending and they will be reported separately. Electronically Signed By: Dr Benjamin Sena 10/01/2024 9:23:02 AM CDT us Carolin Gonzalez NP CV STRESS PROCEDURES Final Result * ECG 12 lead (09/10/2024 3:01 PM CDT) us Carolin Gonzalez NP ECG ORDERABLES Final Resu lt * (ABNORMAL) eGFR (09/08/2024 11:16 PM CDT) eGFR 44(L) >=60 mL/min/1. 73 m2 Comment: Interpretive Data [...] of Race in Diagnosing Kidney Disease, JASN 202). The CKD-EPI equation should not be used for patients with unstable renal function and has not been validated in children and those over 70. Current interpretive data was last reviewed 2021. Testing performed by: [facility], [address] [place] [address], [place]., [address] Blood 09/08/2024 11:1 6 PM CDT 09/08/2024 11:16 PM CDT Carolin Gonzalez ROTOR W[facility]ER LAB BLOOD ORDERABLES Final Result ABRAM LICONA ([place]) 1 [facility] Department [place] [address] * (ABNORMAL) Lipid panel (09/08/2024 11:16 PM CDT) Cholesterol 210(H) 30 - 199 mg/dL Comment: Interpretive Data [...] last revised on 2017. Testing performed by: [facility], [address] [place] [address]., [address] Triglycerides 272(H) <=149 mg/dL ABRAM LICONA (JIM) Comment: Interpretive [...] last revised on 2017. Testing performed by: [facility], [address] [place] [address]., [address] HDL 50 >=40 mg/dL ABRAM LICONA (JIM) Comment: Interpretive [...] last revised on 2017. Testing performed by: [facility], [address] [place] [address]., [address] LDL, calculated 113 <=129 mg/dL A[facility]AM LICONA (JIM) Comment: Interpretive Data Ages < or = 19 years Acceptable: <110 mg/dL Borderline high: 110-129 mg/dL High: >or= 130 mg/dL Ages > or = 20 years Optimal: <100 mg/dL Near optimal: 100-129 mg/dL Borderline high: 130-159 mg/dL High: >160 mg/dL Calculated using the Afshin LDL-C estimating equation. This equation was implemented on 2023. Prior to this date LDL-C was estimated using the Friedewald equation. Literature References: 1. Expert Panel on Integrated Guidelines for Cardiovascular Health and Risk Reduction in Children and Adolescents. Pediatrics 2011;128:S213 2. NCEP Expert Panel. Circulation 2004;110:227 3. Afshin Diaz al. INDERJIT Cardiol. 2019August 28;5(5):540-548. doi: 10.1001/jamacardio.2020.0013 Current Interpretive Data was last revised on 2023. Testing performed by: [facility], [address] [place] [address]., [address] Non-HDL Cholesterol 160 mg/dL ABRMA LICONA (JIM) Comment: Interpretive Data Ages < [...] last revised on 2017. Testing performed by: [address] [address] Chol/HDL ratio 4 [facility] ([place]) Comment:Testing performed by : [address], [address] Blood 09/08/2024 11:1 6 PM CDT 09/08/2024 11:16 PM CDT Carolin Gonzalez [facility] LAB BLOOD ORDERABLES Final Result ABRAM LICONA ([place]) 1 [facility] Department [place] [address] * (ABNORMAL) Comprehensive metabolic panel (09/08/2024 11:16 PM CDT) Sodium 136 135 - 145 mmol/L Comment:Testing performed by : [address], [address] Potassium, pl 5.5(H) 3.3 - 4.9 mmol/L [facility] ([place]) Comment:Testing performed by : [address] [address] Chloride 101 97 - 110 mmol/L [facility] ([place]) Comment:Testing performed by : [address], [address] CO2 25 22 - 32 mmol/L [facility] ([place]) Comment:Testing performed by : [address], [address] Anion gap 10 2 - 15 mmol/L [facility] (JIM) Comment:Testing performed by : [address], [address] BUN 33(H) 6 - 25 mg/dL [facility] ([place]) Comment:Testing performed by : [address], [address] Creatinine 1.27(H) 0.60 - 1.10 mg/dL [facility] ([place]) Comment:Testing performed by : [address], [address] Glucose 188 70 - 199 mg/dL [facility] ([place]) Comment: Interpretive Data Fasting glucose >/= 126 mg/dl is diagnostic for diabetes. Fasting is defined as no caloric intake for at least 8 hours. Fasting glucose between 100 mg/dl to 125 mg/dl is diagnostic of prediabetes. In a patient with classic symptoms of hyperglycemia or hyperglycemic crisis, a random glucose >/= 200 mg/dl is diagnostic for diabetes. In the absence of unequivocal hyperglycemia, results should be confirmed by repeat testing. The classification and Diagnosis of Diabetes Diabetes Care 2021; 46: S19-S40. Current interpretive data was last revised 2022. Testing performed by: [address] [address] Calcium 10.2 8.5 - 10.3 mg/dL [facility] ([place]) Comment:Testing performed by : [address], [address] Bilirubin, total 0.3 0.1 - 1.2 mg/dL [facility] ([place]) Comment:Testing performed by : [address], [address] Protein, pl 7.6 6.5 - 8.5 g/dL [facility] ([place]) Comment:Testing performed by : [address], [address] Albumin 4.4 3.5 - 5.0 g/dL [facility] ([place]IM) Comment:Testing performed by : [address], [address] Alk phos 72 40 - 130 Units/L [facility] ([place]IM) Comment:Testing performed by : [address], [address] ALT 14 7 - 45 Units/L [facility] ([place]IM) Comment:Testing performed by : [address], [address] AST 24 10 - 45 Units/L [facility] ([place]) Comment:Testing performed by : [address], [address] Blood 09/08/2024 11:1 6 PM CDT 09/08/2024 11:16 PM CDT Carolin Gonzalez NP LAB BLOOD ORDERABLES Final Result [facility] ([place]) 1 [facility] Department [place] [address] * Differential, auto (09/08/2024 10:10 AM CDT) Neutrophil abs 4.45 1.50 - 6.50 K/cumm Comment:Testing performed by : [facility], [address] [place] [address]., [address] Imm gran abs 0.02 0.00 - 0.10 K/cumm [facility] ([place]) Comment:Testing performed by : [facility], [address] [place] [address]., [address] Lymphocyte abs 1.90 0.80 - 3.30 K/cumm [facility] ([place]) Comment:Testing performed by : [facility], [address] [place] [address]., [address] Monocyte abs 0.44 0.20 - 0.80 K/cumm [facility] ([place]) Comment:Testing performed by : [facility], [address] [place] [address]., [address] Eosinophil abs 0.19 0.00 - 0.50 K/cumm [facility] ([place]) Comment:Testing performed by : [address] [address] Basophil abs 0.06 0.00 - 0.10 K/cumm [facility] ([place]) Comment:Testing performed by : [address] [address] Neutrophil pct 63.1 % [facility] ([place]) Comment: Interpretive Data Percent cell count reference ranges are not reported, since discordance with absolute values may lead to misinterpretation of CBC data. Current Interpretive Data was last revised on 2017. Testing performed by: [address], [address] Imm gran pct 0.3 % [facility] ([place]) Comment: Interpretive Data Percent cell count reference ranges are not reported, since discordance with absolute values may lead to misinterpretation of CBC data. Current Interpretive Data was last revised on 2017. Testing performed by: [facility], [address] [place] [address]., [address] Lymphocyte pct 26.9 % [facility] ([place]) Comment: Interpretive Data Percent cell count reference ranges are not reported, since discordance with absolute values may lead to misinterpretation of CBC data. Current Interpretive Data was last revised on 2017. Testing performed by: [facility], [address] [place] [address]., [address] Monocyte pct 6.2 % [facility] ([place]) Comment: Interpretive Data Percent cell count reference ranges are not reported, since discordance with absolute values may lead to misinterpretation of CBC data. Current Interpretive Data was last revised on 2017. Testing performed by: [facility], [address] [place] [address]., [address] Eosinophil pct 2.7 % [facility] ([place]) Comment: Interpretive Data Percent cell count reference ranges are not reported, since discordance with absolute values may lead to misinterpretation of CBC data. Current Interpretive Data was last revised on 2017. Testing performed by: [address] [address] Basophil pct 0.8 % [facility] ([place]) Comment: Interpretive Data Percent cell count reference ranges are not reported, since discordance with absolute values may lead to misinterpretation of CBC data. Current Interpretive Data was last revised on 2017. Testing performed by: [address] [address] Blood 09/08/2024 10:1 0 AM CDT 09/08/2024 11:10 PM CDT Carolin Gonzalez NP LAB BLOOD ORDERABLES Final Result ABRAM LICONA ([place]) 1 [facility] Department [place] [address] * (ABNORMAL) CBC with auto differential (09/08/2024 10:10 AM CDT) WBC 7.06 3.80 - 9.90 K/cumm Comment:Testing performed by : [address], [address] Hgb 12.9 11.9 - 15.5 g/dL [facility] ([place]) Comment:Testing performed by : [address], [address] Hct 41.7 35.6 - 45.5 % [facility] ([place]) Comment:Testing performed by : [facility], [address] [place] [address], [address] Plt 263 150 - 400 K/cumm [facility] ([place]) Comment:Testing performed by : [address], [address] MPV 9.4 9.1 - 12.3 fL [facility] ([place]) Comment:Testing performed by : [address], [address] RBC 4.45 3.90 - 5.20 M/cumm [facility] ([place]) Comment:Testing performed by : [address], [address] MCV 93.7 81.3 - 96.4 fL [facility] ([place]) Comment:Testing performed by : [address], [address] MCH 29.0 27.1 - 33.3 pg [facility] ([place]) Comment:Testing performed by : [address], [address] MCHC 30.9(L) 32.3 - 35.7 g/dL [facility] ([place]) Comment:Testing performed by : [address], [address] RDW CV 13.8 11.1 - 14.9 % [facility] ([place]) Comment:Testing performed by : [address], [address] RDW SD 47.4 35.7 - 48.1 fL [facility] ([place]) Comment:Testing performed by : [address], [address] NRBC abs 0.00 0.00 - 0.01 K/cumm [facility] ([place]) Comment:Testing performed by : [facility], [address] [place] [address]., [address] Blood 09/08/2024 10:1 0 AM CDT 09/08/2024 11:10 PM CDT Carolin Gonzalez [facility] LAB BLOOD ORDERABLES Final Result ABRAM LICONA ([place]) 1 [facility] Department [place] [address] * POCT hemoglobin A1c (06/02/2024 2:33 PM ANESTHESIOLOGY FELLOW) Hemoglobin A1C, POC 7.5 4.0 - 5.6 % Blood 06/02/2024 2:33 PM ANESTHESIOLOGY FELLOW Arthur Santiago DO POINT OF CARE TEST ORDERABL ES Final Result * (ABNORMAL) Albumin Creatinine Ratio, Urine (03/13/2024 4:02 PM ANESTHESIOLOGY FELLOW) Albumin Ur 25.8 mg/L Comment: Interpretive Data No reference range established. Current interpretive data was last revised 2018. Testing performed by: [facility], [address] [place] [address]., [address] Creatinine Ur 20.1 mg/dL ABRAM LICONA (JIM) Comment: Interpretive Data No reference range established. Current interpretive data was last revised 2018. Testing performed by: [facility], [address] [place] [address]., [address] Albumin Creatinine Ratio, Ur 128(H) 1 - 29 mg/g ABRAM LICONA (JIM) Comment:Testing performed by : [address] [address] Urine 03/13/2024 4:02 PM ANESTHESIOLOGY FELLOW 03/13/2024 10:15 PM ANESTHESIOLOGY FELLOW Betty Perez [facility] LAB URINE ORDERABLES Final Re sult [facility] [place]) 1 [facility] Department [place] [address] * RetinaVue Scanner - OU - Both Eyes (02/21/2024) Anatomical Region Laterality Modality Head Fundus Photograp hy 02/21/2024 Arthur Santiago DO OPHTH PHOTOGRAPHY Final Res ult * COLONOSCOPY (01/20/2021 1:05 PM CDT) Anatomical Region Laterality Modality Other Narrative Procedure Note Zuhair Muñoz MD - 01/20/2021 1:05 PM CDT [facility] [place] Patient Name: Sydnie Persaud Procedure Date: 01/20/2021 1:05 PM Date of : 1945 Admit Type: Outpatient Age: 75 Gender: Female Attending MD: Zuhair Muñoz M.D. Room: [facility] ENDOSCOPY ROOM 2 Note Status: Finalized Patient [...] scope was passed under direct vision. TheColonoscope [id number] was introduced through the anus and advanced [...] 1:05 PM Procedure Code(s): --- Professional --- 72582, Colonoscopy, flexible; diagnostic, including collection of specimen(s) by brushing or washing, when performed (separateprocedure) Diagnosis Code(s): --- Professional --- K57.30, Diverticulosis of large intestine without perforation orabscess without bleeding R19.5, Other fecal abnormalities K64.9, Unspecified hemorrhoids CPT copyright 2019 [employer] [place] [employer]. All rights reserved. The codes documented in this report are preliminary and upon bean viner reviewmay be revised to meet current compliance requirements. Recognized by the [place] [employer] for promoting quality in endoscopy Zuhair Muñoz MD ENDOSCOPY PROCEDURES Final Re sult * DIABETES FOOT EXAM (11/23/2016) [facility] Signature Diabetic Foot Exam Normal Historical Provider MD HEALTH MAINTENANCE Final Result from Last 3 Months or Most Recently Relevant to Health Maintenance Insurance [facility] MEDICARE [facility] Address: [address] [address] Advance Directives For more information, please contact: [phone] * Full Code (Latest Code Status on File) Date Activated Date Inactivated Comments 02/01/2024 10:11 AM 02/04/2024 4:19 PM * Full Code Date Activated Date Inactivated Comments 01/20/2021 12:21 PM 01/20/2021 6:45 PM 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
--- OUTSIDE RECORDS SUMMARY | 2024-12-05 13:45 | XMS_ITS | Encounter Summary ---
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 Gender Identity Not on file Sexual Orientation Not on file documented as of this encounter Plan of Treatment Not on file documented as of this encounter Visit Diagnoses Not on filedocumented in this encounter Additional Health Concerns Infection Onset Date Last Indicated Resolved Time COVID: Suspected 05/01/2022 05/01/2022 05/01/2022 10:33 AM TRAVEL COUNSELOR [employer] documented as of this encounter Care Teams Product Assembler Relationship Specialty Start Date End Date Chris Garcia MD [address] [place] [address] PCP - General 06/25/19 10/14/20 Sydni Arroyo NP [address] [place] [address] PCP - General Family Medicine 10/15/20 11/14/20 Chris Garcia MD [address] [place] [address] PCP - General Family Medicine 11/15/20 Concetta Roman MA [address] [place] [address] [place] [address] ACO Care Warehouse Receiving Supervisor 02/05/24 02/06/24 documented as of this encounter
--- OUTSIDE RECORDS SUMMARY | 2024-12-05 13:45 | XMS_ITS | Clinical Summary ---
Author Organization [facility] Address [address] [place] [address] Care Team Providers Care Squeak Rattle And Leak Repairer Name Role Phone Unavailable Primary Care Provider Unavailabl e Source Comments [facility],non-owned Affiliates and Associated Physician Practices is amultiple site organization consisting of ambulatory clinics and hospital sitesin [place], [place], [place] and [place]. This disclosure is being madepursuant to the Care Everywhere program and may not contain all information available regarding this patient. Last updated 18.[facility] Allergies Active Allergy Reactions Criticality Noted Date Comments Codeine 06/16/2009 Medications * Be aware that medications may not be up to date on this document. Alwaysverify current medications with the patient. lisinopril (PRINIVIL; ZESTRIL) 10 MG tablet Take 10 mg by mouth daily. Active VITAMIN D PO Take by mouth. Ac tive aspirin 81 MG tablet Take 81 mg [...] = 0.6 oz pur e alcohol) socially Comments Unknown Sex and Gender Information Value Date Recorded Sex Assigned at Not on file Legal Sex Female 8:32 AM ROCK DUSTER Gender Identity Not on file Sexual Orientation Not on file Last Filed Vital Signs Vital Sign Reading Time Taken Comments Blood Pressure 106/60 06/17/2009 5:21 PM ROCK DUSTER Pulse 77 06/17/2009 5:21 PM ROCK DUSTER Temperature 36.8 C (98.3 F) 06/17/2009 4:18 PM ROCK DUSTER Respiratory Rate 16 06/17/2009 5:21 PM ROCK DUSTER Oxygen Saturation 91% 06/17/2009 4:18 PM ROCK DUSTER Inhaled Oxygen Concentration - - Weight 85.2 kg (187 lb 13.3 oz) 010 12:23 AM ROCK DUSTER Height 157.5 cm (5' 2) 06/17/2009 12:2 3 AM ROCK DUSTER Body Mass Index 34.35 06/17/2009 12:23 AM ROCK DUSTER Plan of Treatment Health Maintenance Due Date Last Done Comments HEPATITIS C SCREENING 07/31/1965 DTAP/TDAP/TD VACCINES (1 - Tdap) 08/04/1966 PNEUMOCOCCAL VACCINE 50+ (1 of 2 - PCV) 08/04/1966 ZOSTER VACCINE (1 of 2) 08/04/1997 Respiratory Syncytial Virus (RSV) Vaccine Pt: or over 60 yrs (1 - 1-dose 75+ series) 08/04/2022 COVID-19 VACCINE ( - 2023-2 5 season) 2023 DEPRESSION SCREENING 04/30/2024 INFLUENZA VACCINE (#1) 2024 BONE DENSITY TESTING Completed 10/13/2020 HEPATITIS B VACCINE Aged Out No longe [...]
[2024-12-05 15:15] LABS: Hematocrit 37.2 % (37.0-47.0); Hemoglobin 12.1 g/dL (12.0-15.0); Immature Granulocyte Percent A 0.3 % (0-0.5); Lymphocytes Absolute Auto 1.83 K/mm3 (0.9-3.2); Mean Corpuscular HGB Conc 32.5 g/dl (32-36); Mean Corpuscular Hemoglobin 29.4 pg (26-34); Mean Corpuscular Volume 90.3 fl (80-100); Nucleated Red Blood Cells Absolute Auto 0.000 K/mm3 (0.0-0.012); Nucleated Red Blood Cells Perc 0.0 % (0.0-0.2); Platelet Count Result 230 k/mm3 (150-375); Red Blood Count 4.12 M/mm3 (4.2-5.4); White Blood Count 7.9 K/mm3 (4.5-10.0)
[2024-12-05 15:25] LABS: INR 1.1; Prothrombin Time 14.3 Seconds (11.1-14.7)
[2024-12-05 15:26] LABS: Partial Thromboplastin Time 34.1 Seconds (22.3-36.8)
[2024-12-05 15:29] LABS: Anion Gap 9 mmol/L (4-12); Blood Urea Nitrogen 39 mg/dL (7-17); Calcium 10.0 mg/dL (8.4-10.2); Carbon Dioxide 25 mmol/L (22-30); Chloride 100 mmol/L (98-107); Estimated Glomerular Filt Rate 39; Glucose 174 mg/dL (65-110); Potassium 5.6 mmol/L (3.4-5.0); Sodium 134 mmol/L (137-145)
[2024-12-05 16:25] LABS: MRSA (PCR) NOT DETECTED (NOT DETECTE)
== END 2024-12-05 13:41 | disposition home or self-care (01) ==
LOC: ANHSURGERY 13:44
PROVIDERS: Anesthesiology; PCP Family Medicine; Visit Provider Orthopaedic Surgery
DX: M75.101 Unspecified rotator cuff tear or rupture of right shoulder, not specified as traumatic (principal); N18.32 Chronic kidney disease, stage 3b; E11.22 Type 2 diabetes mellitus with diabetic chronic kidney disease
CPT/HCPCS: 36415; 80048; 85025; 85610; 85730; 87641

== ENCOUNTER 2025-01-01 01:53 | Day surgery (SDC) | payer MEDICARE, SELFPAY ==
[2024-12-05 14:09] VITALS: BMI 32.5
--- NOTE | 2024-12-05 14:10 | PC.NURSE ---
Report to the Outpatient Waiting Room, entrance under the green pavilion located off [facility], at time __6 AM on date _01/01/25 . Planned Procedure Time: __7:30 AM .? Time changes happen often and if your time is changed the preop area will call you the afternoon before. - You and your visitor will be asked to self-screen and do not enter if you have any COVID symptoms. Please call surgeon if you need to reschedule. - A mask is optional within the hospital at this time. Patients may have clear liquids (water, carbonated beverages, clear teas, apple juice) until 3 hours prior to surgery ( 4:30 AM) with a maximum of 20 ounces. - No food from midnight until time of surgery and no smoking, or chewing tobacco (or any form of nicotine). No chewing gum, candy or mints. - Take only the following medications with a SIP of water on the morning of surgery: NONE DO NOT STOP ANY OF YOUR OTHER PRESCRIPTION MEDICATIONS PRIOR TO SURGERY EXCEPT THE FOLLOWING Hold all vitamins and supplements for 3 days per anesthesiologist.LAST DOSE 12/28/24 Medications to discontinue per physician HOLD ASPIRIN 7 DAYS PRE OP PER DR CLAROS Date to take last dose____12/24/24 Please no make-up, nail malaysian, hairspray, perfume, deodorant, or body powder the day of surgery.? No jewelry (including any body piercings) or valuables the day of surgery, leave them at home.? Please take a shower or bath the night before, or the morning of, surgery with an antibacterial soap.? Wear comfortable, loose fitting clothing.? Children are encouraged to wear pajamas. - Jewelry must be removed prior to entering the operating room.? Rings and piercings that are not removed may be cut off. - The hospital will not accept responsibility for valuables.? - Please leave all valuables, including medications, at home the day of surgery. If you are going home after surgery, a licensed electric truck driver must drive you home.? - NO public transportation without another adult if you receive anesthesia. - We recommend that an adult stay with you for 24 hours following discharge. - We also recommend that you do not drive, make important decision, drink alcoholic beverages, or take any drugs that were not prescribed by your health care provider for at least 24 hours after your discharge time. For Pediatric surgeries, we recommend two adults accompany the child home. Follow any additional instructions given to you from your surgeon. Telephone instructions given to __PATIENT and asked if any additional questions and then verbalized understanding. Patient advised to call surgeon office or pre surgery nurse liaison [phone] if any additional questions.
[2024-12-05 15:00] VITALS: BP 188/93; PULSE 70; RESP 18; TEMP 36.7; O2SAT 98
[2025-01-01] VITALS (13 sets, daily range): BP systolic 125–162; BP diastolic 59–92; PULSE 67–86; RESP 12–20; TEMP 35.9–36.2; O2SAT 92–99
--- NOTE | ~2025-01-01 | XR_ITS ---
EXAM/ PROCEDURE: XR shoulder RT min 2V - 01/01/2025 9:54 CDT HISTORY: 79 years old Female with POST-OP RIGHT REVERSE TOTAL SHOULDER COMPARISON: None available TECHNIQUE: Three view(s) FINDINGS/ IMPRESSION: There are no fractures or dislocations.Joint space narrowing, subchondral sclerosis, subchondral cyst formation and osteophyte formation, compatible with mild osteoarthritis. Right shoulder arthroplasty with intact hardware and no loosening. Postsurgical changes including soft tissue swelling and subcutaneous emphysema. Reviewed, dictated and finalized at location N.
--- OUTSIDE RECORDS SUMMARY | 2025-01-01 01:56 | XMS_ITS | Encounter Summary ---
Author Organization [facility] Healthcare Address [address] [place] [address] Care Team Providers Care Lining Scrubber Name Role Phone Chris Garcia MD Primary Care Provider [phone] Reason for Visit * Reason Onset Date Comments Lab Results 10/01/2024 Dexa Axial Skeleton Bone Density 10/01/2024 Encounter Details Date Type Department Care Team (Late st Contact Info) Description 10/01/2024 Results Follow-Up [facility] [address] [address] Ita Hilliard, SAPPHIRE STYLUS GRINDER [address] [place] [address] [place] MPI SPECT (Rest and/or Stress) Multiple Studies, Dexa Axial Skeleton Bone Density 1 Or 2 Site, Basic metabolic panel, Additional followed-up results: 5 Social History Tobacco Use Types Packs/Day Years [...] points, staff should administer the PHQ-9) 0 12/16/2024 Personal Safety Answer Date Recorded Have you ever been in or are you currently in a harmful physical or emotional relationship or is someone making you feel afraid or unsafe? 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 Thanks! * Telephone Encounter - Maria Antonia Munoz CMA - 11/27/2024 10:06 AM CDT Attempted to called patient and phone rings then goes to busy tone then hangs up * Telephone Encounter - Maria Antonia Munoz CMA - 10/30/2024 2:13 PM CDT Attempted to call patient and the phone will ring then go to busy signal and then hangs up. * Telephone Encounter - Maria Antonia Munoz CMA - 10/10/2024 9:17 AM CDT Attempted to call patient and the phone will ring then go to busy signal and then hangs up. Since reached out 3 times will send the results and provider recommendations to patient in the mail. * Telephone Encounter - Maria Antonia Munoz CMA - 10/08/2024 10:12 AM CDT Attempted to call patient and the phone will ring then go to busy signal and then hangs up. * Telephone Encounter - Maria Antonia Munoz CMA - 10/02/2024 1:29 PM CDT Called patient and phone just rings then gives busy signal and then hangs up. documented in this encounter Plan of Treatment Not on file documented as of this encounter Visit Diagnoses Not on filedocumented in this encounter Care Teams Lining Scrubber Relationship Specialty Start Date End Date Chris Garcia MD [address] [place] [address] PCP - General Family Medicine 11/15/20 documented as of this encounter
--- OUTSIDE RECORDS SUMMARY | 2025-01-01 01:56 | XMS_ITS | Encounter Summary ---
Author Organization [facility] Healthcare Address [address] [place] [address] Care Team Providers Care Reactor Service Operator Name Role Phone Chris Garcia MD Primary Care Provider + [phone] Sydni Arroyo NP Primary Care Provider [phone] Chris Garcia MD Primary Care Provider + [phone] Concetta Roman MA Unavailable [phone] Encounter Details Date Type Department Care Team (Late st Contact Info) Description 10/12/2020 Telephone [facility] [address] [place] [id number] iL Wilder, RT Social History Tobacco Use Types [...] on file 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 Sex Female 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 Gender Identity Not on file Sexual Orientation Not on file documented as of this encounter Plan of Treatment Not on file documented as of this encounter Visit Diagnoses Not on filedocumented in this encounter Additional Health Concerns Infection Onset Date Last Indicated Resolved Time COVID: Suspected 05/01/2022 05/01/2022 05/01/2022 10:33 AM CHIEF INVESTIGATOR documented as of this encounter Care Teams Reactor Service Operator Relationship Specialty Start Date End Date Chris Garcia MD [address] [place] [address] PCP - General 06/25/19 10/14/20 Sydni Arroyo NP [address] [place] [address] PCP - General Family Medicine 10/15/20 11/14/20 Chris Garcia MD [address] [place] [address] PCP - General Family Medicine 11/15/20 Concetta Roman MA [address] [place] [address] [place] [address] ACO Care Orthopedically Impaired Teacher 02/05/24 02/06/24 documented as of this encounter
--- OUTSIDE RECORDS SUMMARY | 2025-01-01 01:56 | XMS_ITS | Clinical Summary ---
Author Organization [facility] A Address [address] [place] [address] Care Team Providers Care Manager Utilization Management Name Role Phone Chris Garcia MD Primary Care Provider [phone] Allergies Active Allergy Reactions Criticality Noted Date [...] mg total) by mouth daily 30 tablet 11/25/19 21 Active nitroglycerin (NITROSTAT) 0.[address] 1 tablet (0.4 mg total) under the tongue every 5 (five) minutes as needed for chest pain May repeat dose q 5 min, up to 3 doses total 90 tablet 02/29/20 22 Active blood glucose diagnostic (glucose blood) strip Use as directed to test blood sugars 100 each 01/23/20 24 025 Active lancets 33 gauge misc Use as directed to test blood sugars 100 each 01/23/20 24 Active amLODIPine (NORVASC) 10 mg tablet Take 1 tablet (10 mg total) by mouth daily 30 tablet 02/05/20 24 025 Active losartan (COZAAR) 100 mg tablet Take 1 tablet (100 mg total) by mouth daily 30 tablet 11 02/05/20 24 025 Active blood-glucose meter miscIndication s:Type 2 diabetes mellitus with hyperglycemia, without long-term current use of insulin (HCC) Use daily or as directed for monitoring of diabetes. ThinkSmart Contour Glucose Meter - DX: E11.65 1 each 02/08/20 Active lancets 33 gauge miscIndication s:Type 2 diabetes mellitus with hyperglycemia, without long-term current use of insulin (HCC) Use to test blood sugar once daily. 100 each 11 02/08/20 24 Active Jardiance 25 mg tablet Take 1 tablet (25 mg total) by mouth daily 30 tablet 5 02/21/20 24 025 Active HYDROcodone-ac etaminophen (NORCO) 5-325 mg per tabletIndicati ons:Pain Take 1 tablet by mouth every 6 (six) hours as needed for pain 28 tablet 03/13/20 24 Active Januvia 50 mg tabletIndicati ons:type 2 diabetes mellitus Take 1 tablet (50 mg total) by mouth daily 90 tablet 3 06/02/19 25 026 Active glimepiride (AmaryL) 4 mg tabletIndicati ons:type 2 diabetes mellitus Take 1 tablet (4 mg total) by mouth daily with breakfast 90 tablet 3 09/02/19 25 Active traMADoL (ULTRAM) 50 mg tablet Take 1 tablet (50 mg total) by mouth every 6 (six) hours as needed for pain Active blood-glucose sensor (Dexcom G7 Sensor) device Dexcom G7 sensor use for 10 days to monitor blood sugar. 9 each 3 09/11/19 25 Active Additional Information Patient not taking.Reported on 12/16/2024 pravastatin (PRAVACHOL) 40 mg tabletIndicati ons:Dyslipidem ia associated with type 2 diabetes mellitus (HCC) TAKE 1 TABLET BY MOUTH EVERY DAY 100 tablet 12/16/19 25 Active pravastatin (PRAVACHOL) 40 mg tabletIndicati ons:Dyslipidem ia associated with type 2 diabetes mellitus (HCC) TAKE 1 TABLET BY MOUTH EVERY DAY 100 tablet 09/08/19 25 025 Discontinued escitalopram (LEXAPRO) 10 mg tablet Take 1 tablet (10 mg total) by mouth daily 90 tablet 4 09/11/19 25 025 Discontinued Active Problems Problem Noted Date Diagnosed Date Stage 3b chronic kidney disease 12/16/2024 Assessment & Plan (12/16/2024 2:42 PM CDT): Encourage PO water intake. Avoid NSAIDs, nephrotoxic medications. Referral to Nephrology. Bilateral carpal tunnel syndrome 09/10/2024 Assessment & Plan (09/10/2024 3:26 PM CDT): Recommend bracing. Can use OTC Voltaren. If not improving follow up with multimedia authoring specialist, Dr. Miranda. Chest pain 09/10/2024 Assessment & Plan (09/10/2024 3:26 PM CDT): No acute findings on ECG. Would recommend stress test and establishing with Cardiology. We also reviewed red flags which would warrant e.d./911. She is in agreement with plan states understanding. Hyperkalemia 09/10/2024 Assessment & Plan (12/16/2024 2:41 PM CDT): Stop potassium supplement. Avoid high potassium foods. Will recheck BMP. Also placed referral to Nephrology. Red flags reviewed. Assessment & Plan (09/10/2024 3:27 PM CDT): [...] Type 2 diabetes mellitus wit h stage 3b chronic kidney disease, without long-term current use of insulin 03/13/2024 Assessment & Plan (12/16/2024 2:44 PM CDT): Last A1C 7.2%. Continues following with Endocrinology. Assessment & Plan (03/13/2024 3:35 PM SOLAR PHOTOVOLTAIC DESIGNER): Kidney function is decreasing will continue to monitor. Discussed avoids salt, NSAIDs, and proper hydration. Sydnie is not interested in seeing Nephrology at this time. We will continue to monitor closely. Chronic right shoulder pain 03/13/2024 Assessment & Plan (03/13/2024 4:34 PM SOLAR PHOTOVOLTAIC DESIGNER): Pain not well controlled on Tramadol. Patient saw ortho and was given an injection which did not help. [place] sent in for pain relief to see if that will work better than Tramadol BMI 32.0-32.9,adult 03/13/2024 Assessment & Plan (03/13/2024 3:58 PM SOLAR PHOTOVOLTAIC DESIGNER): Weight appropriate for patient. Hyponatremia 02/05/2024 Assessment & Plan (02/05/2024 1:35 PM CDT): HCTZ discontinued. Dizziness 02/01/2024 Assessment & Plan (02/13/2024 6:41 AM CDT): Dizziness has resolved; no falls or safety concerns. Headache has resolved. Mild episode of recurrent major depressive disor brenda 03/08/2023 Assessment & Plan (12/16/2024 4:13 PM CDT): Doing well with new friend. Not taking any prescription supplements. Will continue to monitor. Assessment & Plan (09/10/2024 3:24 PM CDT): Will initiate Lexapro. Reviewed scheduling and side effects. Follow-up in 3 months. Sooner for any concerns. Assessment & Plan (03/08/2023 3:24 PM SOLAR PHOTOVOLTAIC DESIGNER): PHQ = 2 Patient reports moods are stable overall, some bad days but has more good days than bad days. Sleeping well. Notable improvement in moods with duloxetine. Angina pectoris, unspecified 02/28/2022 Assessment & Plan (03/08/2023 3:28 PM SOLAR PHOTOVOLTAIC DESIGNER): Denies any recent chest pain or need for nitro Blood pressure well controlled. Assessment & Plan (02/28/2022 4:10 PM CDT): Nitro refilled. Physical exam, annual 02/28/2022 Assessment & Plan (03/08/2023 3:11 PM SOLAR PHOTOVOLTAIC DESIGNER): Preventative exam. Reviewed recommended preventative screenings and [...] healthier, we can set up appointment with journalism professor/deputy probation officer. 3. Have an active lifestyle, strive for [...] 11/22/2021 Assessment & Plan (03/08/2023 3:26 PM SOLAR PHOTOVOLTAIC DESIGNER): Stable; patient is taking medications as prescribed. [...] so. Assessment & Plan (06/16/2022 2:54 PM SOLAR PHOTOVOLTAIC DESIGNER): Patient with chronic pain, taking medications as [...] intake. Assessment & Plan (03/08/2023 3:23 PM SOLAR PHOTOVOLTAIC DESIGNER): Stable continues to avoid NSAIDs. Diabetes well controlled. Encouraged patient to schedule eye exam at her convenience. Assessment & Plan (12/14/2022 6:21 PM CDT): Stable, repeat labs ordered today. Assessment & Plan (09/14/2022 2:48 PM CDT): Again reviewed need to better control diabetes. Stable. Assessment & Plan (06/16/2022 2:49 PM SOLAR PHOTOVOLTAIC DESIGNER): Estimated Creatinine Clearance: 30.7 mL/min (A) (by [...] CM Assessment & Plan (07/01/2021 11:01 PM SOLAR PHOTOVOLTAIC DESIGNER): Component Ref Range & Units 11 mo [...] down. Assessment & Plan (04/01/2021 2:02 PM SOLAR PHOTOVOLTAIC DESIGNER): Never started fluoxetine as papers with medication [...] (01/04/2021): Added automatically from request for surgery [id number] Dyslipidemia associated with type 2 diabetes malcolm litus 07/08/2020 Assessment & Plan (09/10/2024 3:25 PM [...] box. Assessment & Plan (06/16/2022 2:50 PM SOLAR PHOTOVOLTAIC DESIGNER): Continues on pravastatin 40 mg daily as prescribed. Reviewed labs today with patient. Assessment & Plan (02/28/2022 4:08 PM CDT): 07/08/20 SX=991 HDL=52 TG=80 LDL=55 TC/HDL=2.0 06/30/21 KF=259 HDL=40 GK=471 OJC=210 TC/HDL=6 BYDLIF=750 11/22/21 BE=828 HDL=42 GZ=410 NCE=713 TC/HDL=6 QQWGEX=778 Pravastatin 40mg daily. Some metallic taste per [...] & Plan (11/22/2021 6:42 PM CDT): 07/08/20 KZ=407 HDL=52 TG=80 LDL=55 TC/HDL=2.0 06/30/21 BN=864 HDL=40 NZ=403 FFO=798 TC/HDL=6 DIEUCO=230 Still does not want to take statins. Reviewed that total cholesterol and LDL levels elevated; require statins especially with diabetes diagnosis. Reviewed diet necessary to help decrease total cholesterol and LDL. States that she eats red meat at least 3 times a week and does not want to decrease that. Reviewed diet/exercise recommendations. Assessment & Plan (08/03/2021 7:13 PM CDT): DS=344 HDL=40 MT=467 SDD=103 TC/HDL=6 TOPMWH=711 Does not want to take statins. Reviewed [...] recommendations. Assessment & Plan (07/01/2021 10:50 PM SOLAR PHOTOVOLTAIC DESIGNER): Has been off of atorvastatin since 05/31/21. [...] & Plan (02/04/2021 6:07 PM CDT): 06/25/19 GF=674 HDL=49 ZP=848 KAZ=503 TC/HDL=5.0 07/08/20 BL=596 HDL=52 TG=80 LDL=55 TC/HDL=2.0 Atorvastatin 20mg daily. Patient should focus on limiting bad fats in the diet and using exercise as a way to improve the lipid status. Secondary prevention. Reviewed medications. Denies any statin Ses. Reviewed diet/exercise recommendations. Reviewed red flags. Assessment & Plan (10/08/2020 4:03 PM CDT): 10/01/15 JQ=771 HDL=43 TG= 246 LDL=81 06/25/19 TC246 HDL=49 KN=125 YGQ=935 TC/HDL=5.0 07/08/20 TC123 HDL=52 TG=80 LDL= 55 TC/HDL=2 Atorvastatin 20mg daily. Denies any SE/myalgias Reviewed previous labs. Will check labs today and make adjustments to medications as needed. Secondary prevention Discussed focusing on limiting bad fats in the diet and using exercise as a way to improve cholesterol. Reviewed exercise recommendations and red flags warranting further evaluation. Assessment & Plan (07/08/2020 3:29 PM SOLAR PHOTOVOLTAIC DESIGNER): 10/01/15 SX=742 HDL=43 JF=225 LDL=81 06/25/19 PG=740 HDL=49 IY=176 TKD=561 TC/HDL=5.0 Atorvastatin 20mg daily. Denies myalgias. We [...] monitor. Assessment & Plan (03/13/2024 3:36 PM SOLAR PHOTOVOLTAIC DESIGNER): Advised that Amlodipine could be causing lower leg swelling. Patient states she is wanting to try to stop the medication and see if that will help her swelling without impacting her HTN. Assessment & Plan (02/05/2024 1:36 PM CDT): BP stable; now taking losartan 100 mg daily and amlodipine 10 mg daily. Assessment & Plan (03/08/2023 3:23 PM SOLAR PHOTOVOLTAIC DESIGNER): Blood pressure is well controlled, continue losartan-hydrochlorothiazide 125 mg tablet daily Assessment & Plan (12/14/2022 6:22 PM CDT): Blood pressure is well controlled, no changes in current medication. Assessment & Plan (06/16/2022 2:52 PM SOLAR PHOTOVOLTAIC DESIGNER): BP elevated today, patient reports she has [...] 08/02/21. Assessment & Plan (07/01/2021 10:55 PM SOLAR PHOTOVOLTAIC DESIGNER): Increase losartan/hctz to 100/25mg. Continues on metoprolol. [...] results. Assessment & Plan (07/08/2020 2:27 PM SOLAR PHOTOVOLTAIC DESIGNER): Changed from lisinopril/hczt to losartan/hctz d/t cough. [...] 07/08/2020 Assessment & Plan (07/01/2021 10:58 PM SOLAR PHOTOVOLTAIC DESIGNER): Sparingly uses tramadol. Refilled today. Takes tramadol [...] cream Assessment & Plan (07/08/2020 3:19 PM SOLAR PHOTOVOLTAIC DESIGNER): Has tramadol at home that she uses [...] protection. Assessment & Plan (07/01/2021 10:48 PM SOLAR PHOTOVOLTAIC DESIGNER): Discussed and the patient refuses immunization today. Educated regarding the need to vaccinate for personal protection. Assessment & Plan (04/05/2021 7:12 PM SOLAR PHOTOVOLTAIC DESIGNER): Discussed and the patient refuses immunization today. Educated regarding the need to vaccinate for personal protection Assessment & Plan (02/04/2021 6:10 PM CDT): Discussed and the patient refuses immunization today. Educated regarding the need to vaccinate for personal protection. Assessment & Plan (07/08/2020 2:27 PM SOLAR PHOTOVOLTAIC DESIGNER): Discussed and the patient refuses immunization today. Educated regarding the need to vaccinate for personal protection. Assessment & Plan (06/25/2019 9:21 AM SOLAR PHOTOVOLTAIC DESIGNER): She refuses. Refused influenza vaccine 06/25/2019 Assessment & Plan (02/28/2022 4:05 PM CDT): Discussed and the patient refuses immunization today. Educated regarding the need to vaccinate for personal protection and to limit the viruses in the community to protect those most vulnerable. Assessment & Plan (07/01/2021 10:48 PM SOLAR PHOTOVOLTAIC DESIGNER): Discussed and the patient refuses immunization today. Educated regarding the need to vaccinate for personal protection and to limit the viruses in the community to protect those most vulnerable. Assessment & Plan (04/05/2021 7:12 PM SOLAR PHOTOVOLTAIC DESIGNER): Discussed and the patient refuses immunization today. [...] vulnerable. Assessment & Plan (07/08/2020 2:27 PM SOLAR PHOTOVOLTAIC DESIGNER): Discussed and the patient refuses immunization today. Educated regarding the need to vaccinate for personal protection and to limit the viruses in the community to protect those most vulnerable. Assessment & Plan (06/25/2019 9:21 AM SOLAR PHOTOVOLTAIC DESIGNER): She refuses. Hyperlipidemia 11/23/2016 Assessment & Plan [...] time. Assessment & Plan (06/16/2022 2:56 PM SOLAR PHOTOVOLTAIC DESIGNER): Lab Results Component Value Date HGBA1C 7.6 [...] intake. Assessment & Plan (07/01/2021 10:47 PM SOLAR PHOTOVOLTAIC DESIGNER): A1c, micoralbumin & cmp ordered. Last A1c's: [...] evaluation. Assessment & Plan (07/08/2020 3:31 PM SOLAR PHOTOVOLTAIC DESIGNER): Lab Results Component Value Date HGBA1C 7.6 [...] evaluation. Assessment & Plan (03/11/2020 2:05 PM SOLAR PHOTOVOLTAIC DESIGNER): Diagnosed few years ago Started treatment in [...] month Assessment & Plan (07/02/2019 1:49 PM SOLAR PHOTOVOLTAIC DESIGNER): She states blood sugars have been stable at home. Will continue current prescribed therapy. She states she has been colon Endocrinology to schedule appointment. She has also scheduling her eye exam appointment. Obstructive sleep apnea syndrome 05/14/2014 Overview (08/04/2016): ROSA M Assessment & Plan (07/02/2019 1:36 PM SOLAR PHOTOVOLTAIC DESIGNER): She states she has been sleeping well this past week. Will continue current prescribed therapy. Assessment & Plan (06/25/2019 9:21 AM SOLAR PHOTOVOLTAIC DESIGNER): She does not wish to have a sleep study at this time. Subclinical hypothyroidism 09/27/2013 Overview (08/04/2016): Subclinical hypothyroidism Assessment & Plan (07/08/2020 3:30 PM SOLAR PHOTOVOLTAIC DESIGNER): TSH reflex T4 ordered; will contact w/results [...] 07/16/2021 Assessment & Plan (07/01/2021 11:01 PM SOLAR PHOTOVOLTAIC DESIGNER): Reviewed need to lose weight, reviewed health benefits. Reviewed recommendations for daily intake & activity 20-30 minutes/day. Discussed healthy diet and importance of regular physical activity. Class 1 obesity due to exces s calories without serious comorbidity with body mass index (BMI) of 32.0 to 32.9 in adult 04/01/202106/2021 Assessment & Plan (04/01/2021 2:03 PM SOLAR PHOTOVOLTAIC DESIGNER): Reviewed need to lose weight, reviewed health [...] 11/22/2021 Assessment & Plan (04/05/2021 7:12 PM SOLAR PHOTOVOLTAIC DESIGNER): Never started fluoxetine. Feels that depression has [...] exercise. Assessment & Plan (03/08/2023 3:23 PM SOLAR PHOTOVOLTAIC DESIGNER): Stable, continues with active lifestyle. Assessment & Plan (09/14/2022 2:49 PM CDT): Patient enjoying more activities, dancing and getting our of the house. Assessment & Plan (06/16/2022 2:49 PM SOLAR PHOTOVOLTAIC DESIGNER): Discussed healthy diet and importance of regular [...] dog. Assessment & Plan (07/08/2020 2:26 PM SOLAR PHOTOVOLTAIC DESIGNER): Reviewed need to lose weight, reviewed health benefits. Reviewed recommendations for daily intake & activity 20-30 minutes/day. Discussed healthy diet and importance of regular physical activity. Encounter for screening colonoscopy 07/02/2019 07/08/2020 Overview (07/02/2019): Added automatically from request for surgery [id number] Diarrhea 07/02/2019 07/08/2020 Assessment & Plan (07/02/2019 1:40 PM SOLAR PHOTOVOLTAIC DESIGNER): Advised on need for hydration and bulking up stool Neck pain 07/02/2019 10/08/2020 Assessment & Plan (07/02/2019 1:48 PM SOLAR PHOTOVOLTAIC DESIGNER): Will await response to physical therapy. Screening for malignant neoplasm of colon 06/25/2019 07/08/2020 Secondary hyperparathyroidism 11/23/2016 10/08/2020 Hypertension 10/01/2015 07/08/2020 Overview (08/04/2016): HTN (hypertension) Assessment & Plan (03/11/2020 2:07 PM SOLAR PHOTOVOLTAIC DESIGNER): Complicated with nephropathy Controlled with Lisinopril Plan: Low salt diet. Continue medication Improve diabetes control. Assessment & Plan (12/08/2019 4:10 PM CDT): Complicated with nephropathy Controlled with Lisinopril Plan: Informed patient about her kidney statu Continue medication Improve diabetes control. Assessment & Plan (10/06/2019 1:55 PM CDT): Stable today. Assessment & Plan (07/02/2019 1:37 PM SOLAR PHOTOVOLTAIC DESIGNER): She has responded well to the blood pressure medication. Impaired fasting glucose 09/18/201302/2021 Overview (08/04/2016): Impaired fasting glucose Stage 3 chronic kidney disease 09/13/2013 08/03/2021 Overview (2016): Chronic kidney failure Encounters Date Type Department Care Team Description 12/26/2024 2:15 PM CDT Lab [facility] [address] [place] [address] Hyperkalemia; Stage 3b chronic kidney disease (HCC); Encounter for hepatitis C screening test for low risk patient; Need for hepatitis B screening test 12/22/2024 Telephone [facility] [address] [phone] Carolin Gonzalez NP 12/16/2024 2:00 PM CDT Office Visit [facility] [address] [phone] Carolin Gonzalez NP Hyperkalemia (Primary Dx); Stage 3b chronic kidney disease (HCC); Type 2 diabetes mellitus with stage 3a chronic kidney disease, without long-term current use of insulin (HCC); Class 1 obesity due to excess calories with serious comorbidity and body mass index (BMI) of 31.0 to 31.9 in adult; Mild episode of recurrent major depressive disorder 12/05/2024 Orders Only [facility] Information Management [address] [place] [id number] Scanning, Provider 10/28/2024 1:30 PM CDT - 10/28/2024 11:59 PM CDT Hospital Encounter [address] [address] Postmenopausal Discharge Disposition: Discharge to home or self care 10/01/2024 9:28 AM CDT - 10/01/2024 11:59 PM CDT Hospital Encounter [address] [address] Discharge Disposition: Discharge to home or self care 10/01/2024 8:37 AM CDT - 10/01/2024 11:59 PM CDT Hospital Encounter [address] [address] Discharge Disposition: Discharge to home or self care 10/01/2024 7:33 AM CDT - 10/01/2024 11:59 PM CDT Hospital Encounter [facility] [address] [place] [address] Chest pain, unspecified type Discharge Disposition: Discharge to home or self care 10/01/2024 7:29 AM CDT - 10/01/2024 11:59 PM CDT Hospital Encounter [facility] [address] [place] [address] Chest pain, unspecified type Discharge Disposition: Discharge to home or self care 10/01/2024 Results Follow-Up [facility] [address] [phone] Carolin Gonzalez, VESNA NM MPI SPECT (Rest and/or Stress) Multiple Studies, Dexa Axial Skeleton Bone Density 1 Or 2 Site, Basic metabolic panel, Additional followed-up results: 5 from Last 3 Months Immunizations Immunization Administration [...] Hypertension Hx Other Medical 2009 cardiac cath yusef Steatohepatitis steatohepatitis Hx Other Medical Gall [...] Packs/Day Years Used Date Smoking Tobacco: Former Cigarettes Smokeless Tobacco: Never Tobacco Cessation:Counseling Given: Not [...] on file Legal Sex Female 6:52 PM SOLAR PHOTOVOLTAIC DESIGNER Gender Identity Not on file Sexual Orientation Not on file Obstetrics History Last Filed Vital Signs Vital Sign Reading Time Taken Comments Blood Pressure 130/80 12/16/2024 2:11 PM CDT Pulse 80 12/16/2024 2:11 PM CDT Temperature 37.1 C (98.8 F) 12/16/2024 2:11 PM CDT Respiratory Rate 18 09/10/2024 2:27 PM CDT Oxygen Saturation 94% 12/16/2024 2:11 PM CDT Inhaled Oxygen Concentration - - Weight 78.9 kg (174 lb) 12/16/2024 2:11 PM CDT Height 157.5 cm (5' 2.01) 12/16/2024 2:11 PM CD T Body Mass Index 31.81 12/16/2024 2:11 PM CDT Plan of Treatment Health Maintenance Due Date Last Done Comments Pneumococcal vaccine 65+ (1 of 2 - [...] 09/08/2025 09/08/2024, 12/30, 12/14/2022, Additional history exists Well Visit 65+ 09/10/2025 09/10/2024, 12/2022, 02/28/2022, Additional history exists Depression Screening 12/16/2025 12/16/2024, 09/10/2024, 03/13/2024, Additional history exists Fall Risk Assessment 12/16/2025 12/16/2024, 09/10/2024, 03/13/2024, Additional history exists eGFR 12/26/2025 12/26/2024, 08/28, 02/04/2024, Additional history exists Dilated Eye Exam [...] Discontinued 01/20/2021, 06/04/2006 Colorectal Cancer Screening Discontinued Hepatitis B Screening Completed 12/26/2024 Hepatitis C Screening Completed 12/26/2024 Procedures Procedure Name Priority Date/Time Associated Diagnosis Comments EGFR Routine 12/26/2024 2:24 PM CDT Hyperkalemia Stage 3b chronic kidney disease (HCC) BASIC METABOLIC PANEL Routine 12/26/2024 2:24 PM CDT Hyperkalemia Stage 3b chronic kidney disease (HCC) HEPATITIS B SURFACE ANTIGEN Routine 12/26/2024 2:24 PM CDT Need for hepatitis B screening test HEPATITIS B CORE ANTIBODY, TOTAL Routine 12/26/2024 2:24 PM CDT Need for hepatitis B screening test HEPATITIS B SURFACE ANTIBODY (IMMUNE STATUS) Routine 12/26/2024 2:24 PM CDT Need for hepatitis B screening test HEPATITIS C ANTIBODY Routine 12/26/2024 2:24 PM CDT Encounter for hepatitis C screening test for low risk patient SCAN - LABS 12/05/2024 DEXA AXIAL SKELETON BONE DENSITY 1 OR MORE SITES Schedule Routine, Read Routine (OP Routine) 10/28/2024 1:41 PM CDT Postmenopausal STRESS TEST FOR DUAL READ Schedule Routine, Read Routine (OP Routine) 10/01/2024 9:30 AM CDT Chest pain, unspecified type NM MPI SPECT (REST AND/OR STRESS) MULTIPLE STUDIES Schedule Routine, Read Routine (OP Routine) 10/01/2024 9:30 AM CDT Chest pain, unspecified type LIPID PANEL Routine 09/08/2024 11:16 PM CDT Hypertension associated with diabetes (HCC) Dyslipidemia associated with type 2 diabetes mellitus (HCC) POCT HEMOGLOBIN A1C Routine 06/02/2024 2 :33 PM SOLAR PHOTOVOLTAIC DESIGNER Type 2 diabetes mellitus with hyperglycemia, without long-term current use of insulin (HCC) ALBUMIN CREATININE RATIO, URINE Routine 03/13/2024 4:02 PM SOLAR PHOTOVOLTAIC DESIGNER Type 2 diabetes mellitus with stage 3a chronic kidney disease, without long-term current use of insulin (HCC) RETINAVUE SCANNER - OU - BOTH EYES Routine 02/21/2024 Type 2 diabetes mellitus with hyperglycemia, without long-term current use of insulin (HCC) COLONOSCOPY 01/20/2021 1:05 PM CDT DIABETES FOOT EXAM Routine 11/23/2016 from Last 3 Months or Most Recently Relevant to Health Maintenance Results * (ABNORMAL) eGFR (12/26/2024 2:24 PM CDT) eGFR 44(L) >=60 mL/min/1. 73 [...] was last reviewed 2021. Testing performed by: [facility], [address] [place] [address], [place]., [address] Blood 12/26/2024 2:24 PM CDT 12/26/2024 7:56 PM CDT us Carolin Gonzalez NP LAB BLOOD ORDERABLES Final Result [facility] [facility] Department [place] [address] * Hepatitis C antibody Blood (12/26/2024 2:24 PM CDT) Hep C Ab Nonreactive Nonreactive Comment: Interpretive Data Nonreactive: Antibodies to HCV not detected. Does NOT exclude the possibility of recent exposure to HCV. Equivocal: Equivocal for HCV antibodies. Supplemental molecular testing will be automatically performed to determine infection status in accordance with current CDC screening recommendations. Reactive: Positive for HCV antibodies. This may represent current or past HCV infection. Supplemental molecular testing will be automatically performed to determine current infection status in accordance with current CDC screening recommendations. Interpretive data was last revised on 2019. Testing performed by: [facility], [address] [place] [address], [id number] Blood 12/26/2024 2:24 PM CDT 12/26/2024 7:27 PM CDT Carolin Gonzalez NP LAB MICROBIOLOGY - GENERAL ORDERABLES Final Result Performing Organization Address City/[facility]/ZIP Co de Phone Number [facility] (J[facility]) [facility] [employer] [place] [address] * Hepatitis B core antibody, total Blood (12/26/2024 2:24 PM CDT) Pathologist [facility] Hep B core IgG/IgM Nonreactive Nonreactive Comment:Testing performed by : [facility], [address] [place] [address], [id number] Blood 12/26/2024 2:24 PM CDT 12/27/2024 3:44 PM CDT Carolin Gonzalez NP LAB MICROBIOLOGY - GENERAL ORDERABLES Final Result [facility] (JIM) 1 [facility] [employer] [place] [address] * Hepatitis B surface antibody (immune status) Blood (12/26/2024 2:24 PM CDT) Pathologist [facility] HBsAb (immune status) Nonreactive Comment: Interpretive Data Nonreactive: This result is consistent with a lack of immunity to Hepatitis B Virus when used in the setting of routine screening. Equivocal: The immune status of the individual should be further assessed, if appropriate, after consideration of clinical status, risk factors, and additional diagnostic information. Reactive: This result is consistent with immunity to Hepatitis B Virus when used in the setting of routine screening. Current interpretive data was last revised on 19. Testing performed by: [facility], [address] [place] [address]., [id number] Blood 12/26/2024 2:24 PM CDT 12/26/2024 7:27 PM CDT Carolin Gonzalez NP LAB MICROBIOLOGY - GENERAL ORDERABLES Final Result [facility] 1 [facility] [place] [address] * Hepatitis B Surface Antigen Blood (12/26/2024 2:24 PM CDT) HepBsAg Nonreactive Nonreactive Comment:Testing performed by : [facility], [address] [place] [address]., [id number] Blood 12/26/2024 2:24 PM CDT 12/26/2024 7:27 PM CDT Carolin Gonzalez NP LAB MICROBIOLOGY - GENERAL ORDERABLES Final Result Performing Organization Address City/[facility]/ZIP Co de Phone Number [facility] (JIM) 1 [facility] [place] [address] * (ABNORMAL) Basic metabolic panel (12/26/2024 2:24 PM CDT) Sodium 136 135 - 145 mmol/L Comment:Testing performed by : [facility], [address] [place] [address]., [id number] Potassium, pl 4.6 3.3 - 4.9 mmol/L [facility] (JIM) Comment:Testing performed by : [address] [address] Chloride 103 97 - 110 mmol/L [facility] (JIM) Comment:Testing performed by : [address] [address] CO2 23 22 - 32 mmol/L [facility] ([facility]IM) Comment:Testing performed by : [facility], [address] [place] [address]., [id number] Anion gap 10 2 - 15 mmol/L [facility] ([facility]) Comment:Testing performed by : [facility], [address] [place] [address], [id number] BUN 28(H) 6 - 25 mg/dL [facility] ([facility]IM) Comment:Testing performed by : [facility], [address] [place] [address], [id number] Creatinine 1.26(H) 0.60 - 1.10 mg/dL [facility] ([place]) Comment:Testing performed by : [address], [address] Glucose 220(H) 70 - 199 mg/dL [facility] ([place]IM) [...] was last revised 2022. Testing performed by: [facility], [address] [place] [address]., [address] Calcium 9.6 8.5 - 10.3 mg/dL [facility] ([place]) Comment:Testing performed by : [address], [address] Blood 12/26/2024 2:24 PM CDT 12/26/2024 7:27 PM CDT Carolin Gonzalez RESPIRATORY PHYSICIAN LAB BLOOD ORDERABLES Final Result [facility] ([place]) 1 [facility] Department [place] [address] * SCAN - LABS (12/05/2024) us Provider Scanning Edited Result - Final * Dexa Axial Skeleton Bone Density 1 Or 2 Site (10/28/2024 1:41 PM CDT) Anatomical Region Laterality Modality Body N/A Other 10/29/2024 3:49 PM CDT Narrative 10/29/2024 3:50 PM CDT EXAM DESCRIPTION: DEXA AXIAL SKELETON BONE DENSITY 1 OR MORE SITES REASON FOR STUDY: 79 y/o year old F with given history of: postmenopausal 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 MF: LA Report ID: [id number] Reading Location: [id number] us Carolin Gonzalez NP IMG DXA PROCEDURES Final [...] Zac Mahoney M.D. CH: ASA Report ID: [id number] Reading Location: [id number] Procedure Note Zac Mahoney Jr., MD - [...] Zac Mahoney M.D. 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 Post Pharm ECG: No diagnostic ST changes. 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 Post Pharm ECG: No diagnostic ST changes. Arrhythmia: No arrhythmias seen. Cardiac Symptoms With Stress: Symptoms with stress were None. Exam Interpreted: Read by . CONCLUSIONS: 1. Negative Lexiscan pharmacologic stress test for chest pain or EKGchanges. 2. Nuclear images are pending and they will be reported separately. Electronically Signed By: Dr Benjamin Sena 10/01/2024 9:23:02 AM CDT Carolin Gonzalez NP CV STRESS PROCEDURES Final Result * (ABNORMAL) Lipid panel (09/08/2024 11:16 PM [...] last revised on 2017. Testing performed by: [facility], [address] [place] [address]., [address] Triglycerides 272(H) <=149 mg/dL [facility] (JIM) [...] last revised on 2017. Testing performed by: [facility], [address] [place] [address]., [address] HDL 50 >=40 mg/dL [facility] (JIM) [...] last revised on 2017. Testing performed by: [facility], [address] [place] [address]., [address] LDL, calculated 113 <=129 mg/dL [facility] [...] NCEP Expert Panel. Circulation 2004;110:227 3. Afshin Betancur et al. INDERJIT Cardiol. 2020 August 28;5(5):540-548. doi: 10.1001/jamacardio.2020.0013 Current Interpretive Data was last revised on 2023. Testing performed by: [facility], [address] [place] [address]., [address] Non-HDL Cholesterol 160 mg/dL [facility] ([place]) Comment: Interpretive Data Ages < or = [...] last revised on 2017. Testing performed by: [facility], [address] [place] [address]., [address] Chol/HDL ratio 4 [facility] ([place]) Comment:Testing performed by : [facility], [address] [place] [address]., [address] Blood 09/08/2024 11:1 6 PM CDT 09/08/2024 11:16 PM CDT Carolin Gonzalez RESPIRATORY PHYSICIAN LAB BLOOD ORDERABLES Final Result [facility] 1 [facility] Department [place] [address] * POCT hemoglobin A1c (06/02/2024 2:33 PM SOLAR PHOTOVOLTAIC DESIGNER) Hemoglobin A1C, POC 7.5 4.0 - 5.6 % Blood 06/02/2024 2:33 PM SOLAR PHOTOVOLTAIC DESIGNER Arthur Santiago DO POINT OF CARE TEST ORDERABL ES Final Result * (ABNORMAL) Albumin Creatinine Ratio, Urine (03/13/2024 4:02 PM SOLAR PHOTOVOLTAIC DESIGNER) Albumin Ur 25.8 mg/L Comment: Interpretive Data No reference range established. Current interpretive data was last revised 2018. Testing performed by: [facility], [address] [place] [address]., [address] Creatinine Ur 20.1 mg/dL [facility] ([facility]) Comment: Interpretive Data No reference range established. Current interpretive data was last revised 2018. Testing performed by: [facility], [address] [place] [address]., [address] Albumin Creatinine Ratio, Ur 128(H) 1 - 29 mg/g [facility] Comment:Testing performed by : [facility], [address] [place] [address]., [id number] Urine 03/13/2024 4:02 PM SOLAR PHOTOVOLTAIC DESIGNER 03/13/2024 10:15 PM SOLAR PHOTOVOLTAIC DESIGNER Betty Perez RESPIRATORY PHYSICIAN LAB URINE ORDERABLES Final Re sult [facility] 1 [facility] Department [place] [address] * RetinaVue Scanner - OU - Both Eyes (02/21/2024) Anatomical Region Laterality Modality Head Fundus Photograp hy 02/21/2024 Arthur Santiago DO OPHTH PHOTOGRAPHY Final Res ult * COLONOSCOPY (01/20/2021 1:05 PM CDT) Anatomical Region Laterality Modality Other Narrative Procedure Note Zuhair Muñoz MD - 01/20/2021 1:05 PM CDT [facility] Patient Name: Sydnie Persaud Procedure Date: 01/20/2021 1:05 PM Date of : 1945 Admit Type: Outpatient Age: 75 Gender: Female Attending MD: Zuhair Muñoz M.D. Room: [facility] 2 Note Status: Finalized [...] scope was passed under direct vision. TheColonoscope [id number] was introduced through the anus and advanced [...] 1:05 PM Procedure Code(s): --- Professional --- 80521, Colonoscopy, flexible; diagnostic, including collection of specimen(s) by brushing or washing, when performed (separateprocedure) Diagnosis Code(s): --- Professional --- K57.30, Diverticulosis of large intestine without perforation orabscess without bleeding R19.5, Other fecal abnormalities K64.9, Unspecified hemorrhoids CPT copyright 2019 [employer]. All rights reserved. The codes documented in this report are preliminary and upon laborer hoisting reviewmay be revised to meet current compliance requirements. Recognized by the [employer] for promoting quality in endoscopy Zuhair Muñoz MD ENDOSCOPY PROCEDURES Final Re sult * DIABETES FOOT EXAM (11/23/2016) Diabetic Foot Exam Normal Historical Provider HEALTH MAINTENANCE Final Result from Last 3 Months or Most Recently Relevant to Health Maintenance Insurance [facility] MEDICARE ADVANTAGE Advance Directives For more information, please contact: [phone] * Full Code (Latest Code Status on File) Date Activated Date Inactivated Comments 02/01/2024 10:11 AM 02/04/2024 4:19 PM * Full Code Date Activated Date Inactivated Comments 01/20/2021 12:21 PM 01/20/2021 6:45 PM Care Teams Manager Utilization Management Relationship Specialty Start Date End Date Chris Garcia [place] [address] PCP - General Family Medicine 11/15/20
--- OUTSIDE RECORDS SUMMARY | 2025-01-01 01:56 | XMS_ITS | Clinical Summary ---
Author Organization [facility] [employer] Address [address] [place] [address] Care Team Providers Care Facilities Planner Name Role Phone Unavailable Primary Care Provider Unavailabl e Source Comments [facility],non-owned Affiliates and Associated Physician Practices is amultiple site organization consisting of ambulatory clinics and hospital sitesin [place], [place], [place] and [place]. This disclosure is being madepursuant to the Care Everywhere program and may not contain all information available regarding this patient. 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 TORCH OPERATOR Gender Identity Not on file Sexual Orientation Not on file Last Filed Vital Signs Vital Sign Reading Time Taken Comments Blood Pressure 106/60 06/17/2009 5:21 PM ACETYLENE TORCH OPERATOR Pulse 77 06/17/2009 5:21 PM ACETYLENE TORCH OPERATOR Temperature 36.8 C (98.3 F) 06/17/2009 4:18 PM ACETYLENE TORCH OPERATOR Respiratory Rate 16 06/17/2009 5:21 PM ACETYLENE TORCH OPERATOR Oxygen Saturation 91% 06/17/2009 4:18 PM ACETYLENE TORCH OPERATOR Inhaled Oxygen Concentration - - Weight 85.2 kg (187 lb 13.3 oz) 010 12:23 AM ACETYLENE TORCH OPERATOR Height 157.5 cm (5' 2) 06/17/2009 12:2 3 AM ACETYLENE TORCH OPERATOR Body Mass Index 34.35 06/17/2009 12:23 AM ACETYLENE TORCH OPERATOR Plan of Treatment Health Maintenance Due Date [...]
[2025-01-01] MEDS: LACTATED RINGERS 1,000 ML 30 ML IV CONT ×2 (06:30→09:30)
[2025-01-01] MEDS: ACETAMINOPHEN 500 MG TABLET 1000 MG PO (07:00)
[2025-01-01] MEDS: TRANEXAMIC ACID 1,000MG/ISO100 1,000 MG/100 ML BAG 200 MG IVPB (07:00)
--- NOTE | 2025-01-01 07:12 | WPDHPUPDATE1 ---
History and Physical Update Update Date/Time: 01/01/25 07:12 History and Physical has been reviewed, including an updated exam of the patient. There are NO changes in the patient's condition. Risks, benefits, and alternatives have been discussed and questions answered. Patient agrees to proceed with procedure.
--- NOTE | 2025-01-01 07:16 | WPDANESEPPF ---
Anes - Initial Pre Proc Eval Procedure: Operation Date: 01/01/25 07:30 Proposed Procedures p Right Reverse Total Shoulder Arthroplasty - Ron Rhodes MD Date/Time: 01/01/25 07:16 Surgeon: Ron Rhodes MD Pre Op Diagnosis: right rotator cuff arthropathy Patient Data Age: 79 Gender: F Height: 1.57 m Weight: 80.8 kg Last Vital Signs Temp 98.0 F 12/05/24 15:00 Pulse 70 12/05/24 15:00 Resp 18 12/05/24 15:00 BP 188/93 H 12/05/24 15:00 Pulse Ox 98 12/05/24 15:00 O2 Del Method Room Air 12/05/24 15:00 Allergies Allergy/AdvReac Type Severity Reaction Status Date / Time ciprofloxacin Allergy Swelling Verified 12/05/24 14:11 codeine Allergy Nausea and Verified 12/05/24 14:11 Vomiting lisinopril Allergy Cough Verified 12/05/24 14:11 mineral oil Allergy Itching Verified 12/05/24 14:11 Penicillins Allergy Hives Verified 12/05/24 14:11 lanolin AdvReac Itching Verified 12/05/24 14:11 Home Medications ?Medication ?Instructions ?Recorded ?Confirmed ?Type aspirin 81 mg tablet,delayed 81 mg PO DAILY 02/26/24 12/05/24 History release nitroglycerin 0.4 mg sublingual 0.4 mg sublingual Q5M PRN chest 02/26/24 12/05/24 History tablet pain pravastatin 40 mg tablet 40 mg PO DAILY 02/26/24 12/05/24 History tramadol 50 mg tablet 50 mg PO Q6H PRN pain 02/26/24 12/05/24 History glimepiride 4 mg tablet 8 mg PO DAILY 09/15/24 12/05/24 History losartan 100 mg tablet 100 mg PO DAILY 09/15/24 12/05/24 History acetaminophen 500 mg tablet 1,000 mg PO Q4-6H PRN pain 12/05/24 12/05/24 History (Acetaminophen Extra Strength) glipizide 5 mg tablet 5 mg PO DAILY 12/05/24 12/05/24 History magnesium 100 mg tablet 100 mg PO DAILY 12/05/24 12/05/24 History aspirin 81 mg tablet,delayed 81 mg PO BID 14 days #28 tabs 01/01/25 Rx release oxycodone-acetaminophen 5 mg-325 1 - 2 tablet PO Q4-6H PRN pain 7 01/01/25 Rx mg tablet days #30 tabs Laboratory Tests 01/01/25 06:28 Sodium Pending Potassium Pending Chloride Pending Carbon Dioxide Pending Anion Gap Pending BUN Pending Creatinine Pending Estim Creat Clear Calc Pending Estimated GFR Pending Glucose Pending Calcium Pending Blood Type Pending Antibody Screen Pending Patient hx anesthesia problems: other (slow to emerge per pt. ) Family hx anesthesia problems: none Results Review: All pre-operative results and documents have been reviewed as part of the pre-operative evaluation. [facility] Past Medical History Medical History Hypertension Shoulder pain, right Diabetes mellitus Coronary artery disease Chronic kidney disease Diverticulitis Hx of chest pain Surgical History Surgical History H/O: hysterectomy Hx of tonsillectomy Hx of left knee surgery Meniscus sx 2011 H/O oophorectomy H/O colonoscopy H/O cataract extraction History of cardiac catheterization (~2013) Family History Family History Mother Diabetes mellitus Hypertension Cancer Heart disease Father Sleep apnea Cancer Grandparent Cancer Sibling Overdose Sleep apnea Hypertension Bipolar 1 disorder Social History Social History Smoking status: Former smoker Tobacco type: cigarettes Smoking end date: 09/28/24 Additional smoking assessment comments: WILL SMOKE FEW CIGARETTES INFREQUENTLY Alcohol intake: current Drinks per week: 5 Substance use: current Substance use type: marijuana Other substance usage details: FEW PUFFS EVERY NOW AND THEN Last use: SEPTEMBER 2024 Do You Feel Safe in your Home?: Yes Lack of Transportation: No Lack of Food: Never True Current Housing: I Have Housing Concerned About Future Housing: No Difficulty Paying Gas/Electric Bills: No Difficulty Paying for Meds: No Currently Unemployed: No Education: Trade/Vocational Certificate Difficulty w/ Childcare or Family Care: No Living arrangements: alone Spiritual care concerns: No Anes - Eval Final PreProcedure Day of Procedure 01/01/25 07:16 Patient weight: obese Lungs: normal air movement Airway: Mallampati scale class II and special considerations (Edentulous upper, 2 teeth on the lower aspect. ) Neurological: alert and oriented Last oral intake: >/= 8 hours ASA classification: III Emergent: no Anesthetic plan: proceed Anesthesia type and monitoring: general ETT and standard monitoring Results Review: All pre-operative results and documents have been reviewed as part of the pre-operative evaluation. HTN, hyperlipidemia, DM, ROSA M but noncompliant w CPAP. Known CKD, nephrology note appreciated. K 5.6 in the recent past, new BMP pending. Informed Consent: The patient's anesthetic plan and its attendant risks and benefits were discussed with the patient/family/POA. Questions were solicited and answers provided to the satisfaction of the patient/family/POA.
[2025-01-01 07:25] LABS: Anion Gap 10 mmol/L (4-12); Blood Urea Nitrogen 31 mg/dL (7-17); Calcium 9.8 mg/dL (8.4-10.2); Carbon Dioxide 23 mmol/L (22-30); Chloride 100 mmol/L (98-107); Estimated CRCL calculation 30 ml/min; Estimated Glomerular Filt Rate 36; Glucose 140 mg/dL (65-110); Potassium 4.4 mmol/L (3.4-5.0); Sodium 133 mmol/L (137-145)
[2025-01-01] MEDS: ceFAZolin 2 GM in SODIUM CHLORIDE 0.9% IV 50 ML 100 ML IVPB ×3 (07:50→22:57)
[2025-01-01] MEDS: SODIUM CHLORIDE 0.9% IV 37.7 ML, MORPHINE SULFATE INJ (*CRX) 2 MG, ROPivacaine HCL 1% 2... INFILTRATE (08:14)
[2025-01-01] MEDS: VANCOMYCIN HCL 1,000 MG VIAL 1000 MG TOPICAL (08:51)
[2025-01-01] MEDS: TRANEXAMIC ACID 1,000 MG/10 ML AMPUL 1000 MG IV PUSH (09:01)
--- NOTE | 2025-01-01 09:08 | P.OP_ITS ---
Procedure Note - Detailed Date of Procedure 01/01/25 Pre-op Diagnosis Massive chronic rotator cuff tear right shoulder Post-op Diagnosis Same Procedure Performed Reverse total shoulder arthroplasty, right Surgeon Ron Rhodes MD Land Management Forester Beatriz Diego PA-C Anesthesia General Findings Massive tear. MRI showed significant atrophy of the rotator cuff. No significant arthritis or contracture. Good bone quality. Poorly developed deltopectoral interval. Description of Procedure Preoperative antibiotics were given. The patient was transferred to the operating room and a general anesthetic was administered. The beach chair position was used at 45 degrees. All bony prominences were padded. The head was carefully stabilized on the [facility] irrigator overhead. A sterile prep and drape was performed in the usual manner with ChloraPrep. A longitudinal incision was created at the anterior shoulder just lateral to the deltopectoral interval. Careful dissection was performed to expose the interval and protect the cephalic vein. The vein was absent, and interval poorly formed. The upper border of the pectoralis was released only very slightly. Anterior circumflex vessel branches were suture ligated. The biceps was tenodesed. A subscapularis tenotomy was performed. The inferior capsule was released, exposing the humeral head. Osteophytes were removed. Care was taken to stay on bone to protect the axillary nerve. The neck anteversion and inclination were carefully assessed. Version was between 20? and 30?. The anatomic head cut was taken with the oscillating saw. The cut protector was placed, and attention was turned to the glenoid. Retractors were placed. Releases were carried out for exposure. The subscapularis was mobilized, the inferior capsule and long head of triceps released, and the superior and middle glenohumeral ligaments released as well. Labral tissue was resected as needed. Version and inclination were corrected according to preoperative templating. The sizing template was used to assess the baseplate position low on the glenoid, with an approximate 0 degrees corrections of retroversion and 10 degrees of inclination. A guide pin was placed. Minimal reaming was used to accomplish a flat surface without violating the subchondral bone. The boss was drilled, and the real component was impacted into position. The central compression screw was placed. Supplemental locking screws were placed superiorly, and inferiorly. The glenosphere was impacted into the taper. Attention was turned to the humerus. The guide pin was placed, central drilling performed, and the broach trial inserted. The proximal humerus was reamed for the inset component. The humeral components were trialed. The real humeral stem, tray, and insert were impacted into position. The shoulder was copiously irrigated periodically with pulsatile lavage. The shoulder was reduced and stability confirmed. 1 gram of Vancomycin powder was placed in the joint. The biceps tenodesis was incorporated with the pectoralis tendon repair. The remaining tissue was closed with 2-0 Vicryl, 3-0 Stratafix and 4-0 Stratafix, and steri-strips. A sterile silver occlusive dressing and shoulder immobilizer were placed. The patient was transferred to the recovery room. 1 g of vancomycin powder was used. [employer] Shoulder [employer] reverse TSA size 0 stem. +0 polyethylene insert. Standard baseplate. 33 + 3 mm glenosphere. Estimated Blood Loss 150 Drains No Pathology None sent Complications No immediate complications Condition Stable Disposition PACU [facility] Billing Surgery - Charge Forward: Surgery Billing
[2025-01-01] MEDS: fentaNYL CITRATE INJ (*CRX) 100 MCG/2 ML VIAL 25 MCG IV PUSH ×4 (09:41→09:55)
[2025-01-01] MEDS: INSULIN HUMAN REGULAR (*BKC) 100 UNITS/ML SUB-Q (09:44)
--- NOTE | 2025-01-01 10:46 | ADMGEN ---
This patient, Sydnie Persaud, was admitted to 3 [facility] Surg Room 310-01. Patient/family oriented to hospital policies and general routines including ID bracelet, bed and alarms, visiting hours, pain management, procedures, bathroom and other care routines, personal items, smoking policy, room service/diet, and visiting hours. Information on how to activate the Rapid Response Team has been discussed. Patient/Family are encouraged to report perceived risks to care and to ask questions if they do not understand what they are told or what they should do.
[2025-01-01] MEDS: HYDROmorphone HCL INJ (*CRX) 1 MG/ML SYR IV PUSH (11:00)
[2025-01-01] MEDS: SODIUM CHLORIDE 0.9% IV 1,000 ML 125 ML IV CONT (11:06)
[2025-01-01] MEDS: ACETAMINOPHEN 325 MG TABLET 650 MG PO ×3 (11:59→22:54)
[2025-01-01 12:00] LABS: Hematocrit 33.8 % (37.0-47.0); Hemoglobin 11.1 g/dL (12.0-15.0); Immature Granulocyte Percent A 0.3 % (0-0.5); Lymphocytes Absolute Auto 0.83 K/mm3 (0.9-3.2); Mean Corpuscular HGB Conc 32.8 g/dl (32-36); Mean Corpuscular Hemoglobin 29.4 pg (26-34); Mean Corpuscular Volume 89.4 fl (80-100); Nucleated Red Blood Cells Absolute Auto 0.000 K/mm3 (0.0-0.012); Nucleated Red Blood Cells Perc 0.0 % (0.0-0.2); Platelet Count Result 194 k/mm3 (150-375); Red Blood Count 3.78 M/mm3 (4.2-5.4); White Blood Count 9.6 K/mm3 (4.5-10.0)
[2025-01-01 12:22] LABS: Anion Gap 7 mmol/L (4-12); Blood Urea Nitrogen 31 mg/dL (7-17); Calcium 9.2 mg/dL (8.4-10.2); Carbon Dioxide 24 mmol/L (22-30); Chloride 100 mmol/L (98-107); Estimated CRCL calculation 30 ml/min; Estimated Glomerular Filt Rate 38; Glucose 232 mg/dL (65-110); Potassium 4.3 mmol/L (3.4-5.0); Sodium 131 mmol/L (137-145)
[2025-01-01] MEDS: oxyCODONE/ACETAMINOPHEN (*CRX) 10-325 MG TABLET 1 TAB PO ×2 (14:32→20:22)
[2025-01-01] MEDS: CYCLOBENZAPRINE HCL 10 MG TABLET PO ×2 (14:32→22:54)
[2025-01-01] MEDS: SENNA/DOCUSATE SODIUM TABLET 2 TAB PO (17:34)
[2025-01-01] MEDS: FAMOTIDINE 20 MG TABLET PO (20:23)
[2025-01-01] MEDS: ASPIRIN 81 MG ENTERIC TABLET PO (20:23)
[2025-01-01] MEDS: IBUPROFEN IV 800 MG/200 ML 800 MG/200 ML BAG 400 MG IVPB (22:55)
[2025-01-02 00:08] VITALS: BP 135/86; PULSE 65; RESP 16; TEMP 36; O2SAT 94
[2025-01-02] MEDS: oxyCODONE/ACETAMINOPHEN (*CRX) 10-325 MG TABLET 1 TAB PO (03:51)
[2025-01-02 04:20] VITALS: BP 146/70; PULSE 65; RESP 16; TEMP 36; O2SAT 96
[2025-01-02] MEDS: ACETAMINOPHEN 325 MG TABLET 650 MG PO (06:10)
[2025-01-02] MEDS: CYCLOBENZAPRINE HCL 10 MG TABLET PO (06:10)
[2025-01-02] MEDS: ceFAZolin 2 GM in SODIUM CHLORIDE 0.9% IV 50 ML 100 ML IVPB (06:13)
[2025-01-02 06:43] LABS: Hematocrit 32.5 % (37.0-47.0); Hemoglobin 10.1 g/dL (12.0-15.0); Immature Granulocyte Percent A 0.4 % (0-0.5); Lymphocytes Absolute Auto 1.45 K/mm3 (0.9-3.2); Mean Corpuscular HGB Conc 31.1 g/dl (32-36); Mean Corpuscular Hemoglobin 28.9 pg (26-34); Mean Corpuscular Volume 92.9 fl (80-100); Nucleated Red Blood Cells Absolute Auto 0.000 K/mm3 (0.0-0.012); Nucleated Red Blood Cells Perc 0.0 % (0.0-0.2); Platelet Count Result 178 k/mm3 (150-375); Red Blood Count 3.50 M/mm3 (4.2-5.4); White Blood Count 7.2 K/mm3 (4.5-10.0)
[2025-01-02 07:10] LABS: Anion Gap 7 mmol/L (4-12); Blood Urea Nitrogen 30 mg/dL (7-17); Calcium 8.4 mg/dL (8.4-10.2); Carbon Dioxide 25 mmol/L (22-30); Chloride 99 mmol/L (98-107); Estimated CRCL calculation 25 ml/min; Estimated Glomerular Filt Rate 30; Glucose 176 mg/dL (65-110); Potassium 4.1 mmol/L (3.4-5.0); Sodium 131 mmol/L (137-145)
[2025-01-02 08:20] VITALS: BP 127/64; PULSE 71; RESP 20; TEMP 36.1; O2SAT 93
[2025-01-02] MEDS: SENNA/DOCUSATE SODIUM TABLET 2 TAB PO (09:38)
[2025-01-02] MEDS: PRAVASTATIN SODIUM 20 MG TABLET 40 MG PO (09:38)
[2025-01-02] MEDS: ASPIRIN 81 MG ENTERIC TABLET PO (09:38)
[2025-01-02] MEDS: LOSARTAN POTASSIUM 100 MG TABLET PO (09:39)
[2025-01-02] MEDS: FAMOTIDINE 20 MG TABLET PO (09:39)
[2025-01-02] MEDS: oxyCODONE/ACETAMINOPHEN (*CRX) 5-325 MG TABLET 1 TABLET PO (09:42)
--- NOTE | 2025-01-02 10:35 | PC.NURSE ---
Patient seen by PT and OT cleared to discharge by both. ALEXA Merrill notified and states patient is okay to discharge. Patient states ride should be here around noon.
--- NOTE | 2025-01-02 13:10 | P.PNAN_ITS ---
Anes - Prog Note Post-Op Date/Time: 01/02/25 13:10 Cardiovascular status: normal Respiratory status: normal Airway patency: baseline Mental status: baseline Post-Op hydration status: normal Vital Signs: Last Vital Signs Temp 96.9 F L 01/02/25 08:20 Pulse 71 01/02/25 08:20 Resp 20 01/02/25 08:20 BP 127/64 01/02/25 08:20 Pulse Ox 93 01/02/25 08:20 O2 Del Method Room Air 01/02/25 10:22 O2 Flow Rate 2 01/01/25 14:11 Pain Score (VAS): 0/10 I/O: Intake & Output 01/01/25 01/02/25 01/02/25 23:59 07:59 15:59 Intake Total 290 120 Balance 290 120 Laboratory Tests 01/02/25 05:26 01/02/25 05:26 01/01/25 01/01/25 01/02/25 16:23 19:49 05:26 WBC 7.2 RBC 3.50 L Hgb 10.1 L Hct 32.5 L MCV 92.9 MCH 28.9 MCHC 31.1 L RDW 13.4 Plt Count 178 MPV 9.5 Immature Gran % (Auto) 0.4 Neut % (Auto) 69.9 Lymph % (Auto) 20.2 Bollinger % (Auto) 7.8 Eos % (Auto) 1.3 Baso % (Auto) 0.4 Lymph # (Auto) 1.45 Bollinger # (Auto) 0.6 Eos # (Auto) 0.1 Baso # (Auto) 0.0 Abs Immat Gran (auto) 0.03 Absolute Neuts (auto) 5.0 Absolute Nucleated RBC 0.000 Nucleated RBC % 0.0 Sodium 131 L Potassium 4.1 Chloride 99 Carbon Dioxide 25 Anion Gap 7 BUN 30 H Creatinine 1.65 H Estim Creat Clear Calc 25 Estimated GFR 30 L Glucose 176 H POC Capillary Glucose 232 H 248 H Calcium 8.4 Post-procedural complaints: none Patient Feedback: Patient satisfied with anesthetic care.
== END 2025-01-02 12:15 | disposition home or self-care (01) ==
LOC: ANHSURGERY 07:16 → ANH3MEDSUR 10:37
PROVIDERS: Anesthesiology; Physician Assistant Surgical; PCP Family Medicine; Visit Provider Orthopaedic Surgery
PROC: (CPT 23472; principal; 2025-01-01 07:30)
DX: M75.101 Unspecified rotator cuff tear or rupture of right shoulder, not specified as traumatic (principal); M19.011 Primary osteoarthritis, right shoulder; I12.9 Hypertensive chronic kidney disease with stage 1 through stage 4 chronic kidney disease, or unspecified chronic kidney disease; E11.22 Type 2 diabetes mellitus with diabetic chronic kidney disease; N18.9 Chronic kidney disease, unspecified; Z72.0 Tobacco use; F12.90 Cannabis use, unspecified, uncomplicated; E66.9 Obesity, unspecified; Z68.31 Body mass index [BMI] 31.0-31.9, adult
CPT/HCPCS: 23472; 36415; 73030; 80048; 82948; 85025; 86850; 86900; 86901; 97110; 97161; 97166; 97530; 97535; J0690; A4565; A9270; C1776; J0166; J1171; J1741; J1815; J1885; J2003; J2270; J2405; J2704; J2795; J3010; J3373; J7030; J7120